=== PATIENT | male | born 1970 | race Caucasian/White ===

== ENCOUNTER 2021-04-21 06:34 | Emergency (ER) | payer SELFPAY ==
[2021-04-21] VITALS (7 sets, daily range): BP systolic 116–153; BP diastolic 72–89; PULSE 72–102; RESP 14–18; TEMP 36.2; O2SAT 94–98; BMI 24.4
--- NOTE | 2021-04-21 06:48 | ECG_ITS ---
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 Measurements Intervals [place] Rate: 77 P: 77 [place]: 153 QRS: 49 QRSD: 103 T: 73 QT: 359 QTc: 407 Interpretive Statements SINUS RHYTHM INCOMPLETE RIGHT BUNDLE BRANCH BLOCK [90+ ms QRS DURATION, TERMINAL R IN V1/V2, 40+ ms S IN I/aVL/V4/V5/V6] SEPTAL MYOCARDIAL INFARCTION , PROBABLY OLD [40+ ms Q WAVE IN V1/V2] No previous ECG available for comparison Electronically Signed On 04-22-2021 8:17:12 SUPERVISOR BEATER ROOM by Odette Piña M.D. [id number] rosario
--- NOTE | 2021-04-21 06:48 | XRR_ITS ---
PROCEDURE INFORMATION: Exam: XR Chest Exam date and time: 04/21/2021 6:48 AM Age: 50 years old Clinical indication: Pain; Chest pressure; Additional info: Chest pain TECHNIQUE: Imaging protocol: XR of the chest. Views: 1 view. COMPARISON: No relevant prior studies available. FINDINGS: Lungs: Emphysematous change and mild interstitial prominence. Punctate left upper lobe nodule, suggesting granuloma. Pleural spaces: No pleural effusion. Heart/Mediastinum: No cardiomegaly. Bones/joints: Degenerative change. XR/XR chest 1V portable [id number] IMPRESSION: Emphysematous change and mild interstitial prominence.
[2021-04-21] MEDS: aspirin 81 mg Chew Tablet 324 MG PO (07:09)
--- NOTE | 2021-04-21 07:13 | PC.NURSE ---
Received report from JADYN Alegre. pt in bed resting. Pt denies current pain.
[2021-04-21] MEDS: aspirin 81 mg Chew Tablet 162 MG (07:16)
--- NOTE | 2021-04-21 07:20 | ED_ITS ---
HPI - General Adult General: Chief complaint: General Medical Stated complaint: confusion, rapid heart Time Seen by Provider: 04/21/21 06:38 History of Present Illness: HPI narrative: 50-year-old male presents to the emergency room with complaint of chest discomfort. Patient states the last 4 days he has had chest discomfort that radiates somewhat into the back but he states he has chronic back and neck problems. He is a little bit of a cough but he says this is baseline cough from smoking. He has not had any change in his sputum production. He has not had any associated shortness of breath with it. He does get a little bit nauseous but no diaphoresis. He has no known history of coronary artery disease. He is not diabetic. He was on clonazepam differently recently moved to this area and ran out about 4 to 5 days ago. He told me he had been taking 1 mg twice a day. And his home medicine list is listed as clonazepam 0.5 3 times daily. Patient is awake and alert is a good historian with no signs of any confusion. Onset (ago): day(s) (4) Location: chest Quality: aching Pain Consistency: intermittent Relieving factors: none Exacerbating factors: none Associated symptoms: Reports chest pain; Deny confusion, cough, diaphoresis, decreased appetite, dyspnea, fevers/chills, headache(s), malaise, nausea, rash, palpitations, seizures, short of breath, syncope, vomiting or weakness Treatments prior to arrival: none Review of Systems Const: Denies: malaise or diaphoresis ENMT: Denies: throat pain, ear or mastoid pain, nasal discharge or nasal congestion Card: Reports: chest pain; Denies: palpitations or syncope Resp: Denies: dyspnea GI: Denies: nausea or vomiting : Denies: flank pain, dysuria, urinary frequency or urinary urgency Skin/Breast: Denies: rash Neuro: Denies: headache(s) or confusion PFSH ED 2 PFSH: Medical History (Updated 04/21/21 @ 10:33 by Umair Liao DO) Anxiety Surgical History (Updated 04/21/21 @ 07:24 by Umair Liao DO) H/O hand surgery H/O knee surgery Right Previous back surgery Family History Other Bleeding disorder Denies family history of Diabetes CAD (coronary artery disease) Clotting disorder Chronic kidney disease (CKD) Social History Smoking and tobacco status: current every day smoker Alcohol intake: never Adopted: No Household members: spouse Housing: House Marital status: Highest education level completed: GED or Equivalent service: No Current occupational status: employed Pets and animals: Yes Current gender identity: Male Physical Exam Const: COMMON NORMALS: no acute distress GENERAL APPEARANCE: cooperative and comfortable ORIENTATION/CONSCIOUSNESS: Yes awake, Yes oriented to person, Yes oriented to place and Yes oriented to time HENMT: COMMON NORMALS: normocephalic, atraumatic, hearing grossly normal bilaterally and external ears normal HEAD & SCALP: normocephalic and atraumatic EXTERNAL EAR: Yes external ears normal Neck/C-Spine: COMMON NORMALS: no JVD Resp: COMMON NORMALS: normal respiratory effort, No retractions, No use of accessory muscles and clear to auscultation bilaterally AUSCULTATION: clear to auscultation bilaterally Cardio: COMMON NORMALS: no JVD, regular rate, regular rhythm and No murmurs present (Cardio) RATE: regular rate RHYTHM: regular rhythm GI: COMMON NORMALS: Soft to palpation and No hepatosplenomegaly present AUSCULTATION: Yes normoactive bowel sounds PALPATION: Yes Soft to palpation, No Tenderness to palpation present (GI), No Guarding due to palpation present (GI) and Yes No hepatosplenomegaly present Extremity: COMMON NORMALS: normal to inspection, capillary refill normal, no clubbing, cyanosis or edema, no calf tenderness and no pedal edema Neuro: SENSORIUM/ORIENTATION: Yes oriented to person, Yes oriented to place and Yes oriented to time Skin: COMMON NORMALS: no rashes or lesions noted GENERAL SKIN EXAM: no rashes or lesions noted Course Vital Signs: Vital signs: Vital Signs Temperature 97.1 F L 04/21/21 06:40 Pulse Rate 72 04/21/21 10:57 Respiratory Rate 16 04/21/21 10:57 Blood Pressure 122/72 04/21/21 10:57 Pulse Oximetry 94 04/21/21 10:57 MDM - General Adult MDM Narrative: Medical decision making narrative: Labs imaging and EKG reviewed as found in the chart. Patient is mildly hyponatremic but he is asymptomatic of this at this time. His chest discomfort is gone. Organ to go ahead and discharge home start on aspirin daily set him up for an outpatient stress test. Recommend that he establish with a primary care physician to restart his antianxiety medications. He reports she was previously on clonazepam he inquired about refilling that in the emergency room advised him we do not usually refill a long-acting benzodiazepine like that in the emergency room. At the time of discharge she is awake and alert oriented is no signs of confusion. Lab Data: Labs: Lab Results 04/21/21 04/21/21 04/21/21 06:45 06:45 06:45 WBC 8.5 10^3/uL 10^3/ uL (4.0-10.0) RBC 5.43 10^6/uL H 10 ^6/uL (4.1-5.3) Hgb 16.8 g/dL H g/dL (11.7-16.6) Hct 49.6 % % (42.0-52.0) MCV 91.3 fl fl (80-94) MCH 30.9 pg pg (28.0-34.0) MCHC 33.9 g/dL g/dL (30.0-36.0) RDW 12.3 % % (12.1-15.1) Plt Count 302 10^3/cmm 10^3 /cmm (130-400) MPV 9.9 fL fL (7.4-10.4) Neut % (Auto) 64.7 % % Lymph % (Auto) 19.9 % % [place] % (Auto) 12.2 % % Eos % (Auto) 2.4 % % Baso % (Auto) 0.7 % % Neut # (Auto) 5.50 10^3/uL 10^3 /uL (1.8-7.7) Lymph # (Auto) 1.7 10^3/uL 10^3/ uL (0.8-4.8) [place] # (Auto) 1.0 10^3/uL H 10^ 3/uL (0.2-0.9) Eos # (Auto) 0.2 10^3/uL 10^3/ uL (0.0-0.8) Baso # (Auto) 0.1 10^3/uL 10^3/ uL (0.0-0.1) Nucleated RBC % (a uto) 0 % % Nucleated RBCs # 0.0 /100WBC /100W BC Sodium Cancelled Potassium Cancelled Chloride Cancelled Carbon Dioxide Cancelled Anion Gap Cancelled BUN Cancelled Creatinine Cancelled GFR Calculation Cancelled Glucose Cancelled Calculated Osmolal ity Cancelled Calcium Cancelled Total Bilirubin Cancelled AST Cancelled ALT Cancelled Alkaline Phosphata se Cancelled Troponin T Baselin e Cancelled Troponin T 120 Min [place] Delta Troponin T Troponin T Hi Sens 6Hr Troponin T Hi Sens 6Hr Delta Total Protein Cancelled Albumin Cancelled Globulin Cancelled 04/21/21 04/21/21 04/21/21 07:37 07:37 09:43 WBC RBC Hgb Hct MCV MCH MCHC RDW Plt Count MPV Neut % (Auto) Lymph % (Auto) [place] % (Auto) Eos % (Auto) Baso % (Auto) Neut # (Auto) Lymph # (Auto) [place] # (Auto) Eos # (Auto) Baso # (Auto) Nucleated RBC % (a uto) Nucleated RBCs # Sodium 126 mmol/L L mmol /L (136-145) Potassium 4.0 mmol/L mmol/L (3.5-5.1) Chloride 95 mmol/L L mmol/ L (98-107) Carbon Dioxide 20 mmol/L L mmol/ L (22-29) Anion Gap 15.0 (5-19) BUN 11 mg/dL mg/dL (6-20) Creatinine 0.8 mg/dL mg/dL (0.7-1.2) GFR Calculation 101.9 mL/min mL/m in (90-130) Glucose 95 mg/dL mg/dL (65-115) Calculated Osmolal ity 261 mOsm/kg L mOs m/kg (285-295) Calcium 9.3 mg/dL mg/dL (8.5-10.5) Total Bilirubin 0.8 mg/dL mg/dL (0.15-1.2) AST 15 U/L U/L (0-40) ALT 18 U/L U/L (0-41) Alkaline Phosphata se 77 IU/L IU/L (40-130) Troponin T Baselin e 6 ng/L ng/L (0-15) Troponin T 120 Min [place] 6.00 ng/L ng/L (0-15) Delta Troponin T 0 ABS# ABS# (0-10) Troponin T Hi Sens 6Hr Troponin T Hi Sens 6Hr Delta Total Protein 6.8 g/dL g/dL (6.6-8.7) Albumin 4.3 g/dL g/dL (3.5-5.2) Globulin 2.5 g/dL g/dL (1.3-4.6) 04/21/21 13:37 WBC RBC Hgb Hct MCV MCH MCHC RDW Plt Count MPV Neut % (Auto) Lymph % (Auto) [place] % (Auto) Eos % (Auto) Baso % (Auto) Neut # (Auto) Lymph # (Auto) [place] # (Auto) Eos # (Auto) Baso # (Auto) Nucleated RBC % (a uto) Nucleated RBCs # Sodium Potassium Chloride Carbon Dioxide Anion Gap BUN Creatinine GFR Calculation Glucose Calculated Osmolal ity Calcium Total Bilirubin AST ALT Alkaline Phosphata se Troponin T Baselin e Troponin T 120 Min [place] Delta Troponin T Troponin T Hi Sens 6Hr Cancelled Troponin T Hi Sens 6Hr Delta Cancelled Total Protein Albumin Globulin Discharge Plan Discharge Patient Disposition: Home Clinical Impression: Atypical chest pain Condition: Stable Prescriptions: New aspirin 81 mg tablet,delayed release (DR/EC) 81 mg PO DAILY Qty: 30 RF: 0 Discontinued clonazepam 0.5 mg tablet 0.5 mg PO TID RF: 0 doxycycline hyclate 100 mg capsule 100 mg PO BID 30 Days Qty: 60 RF: 0 Discharge Orders: Discharge ED (Routine); Ordered 04/21/21 Ordered By: Umair Liao Discharge Diet: Usual diet Discharge Activity: Limit activity as instructed Patient Instructions: Opioid Safety Activity Restrictions/Additional Instructions: No exertional activities. Case management make arrangements. Have a follow-up stress test. They will also make arrangements for her to establish with a primary care doctor. If you have any worsening or changes symptoms return to the emergency room. Start aspirin 81 mg daily. Coding Level of Care Code ED Office Technician for Madison Aguayo Exam Comprehensive NIH stroke score NIHSS Level Of Consciousness - 1a: 0 Level Of Consciousness Questions - 1b: Both Correct Level Of Consciousness Commands - 1c: Both Correct Best Gaze - 2: Normal Visual [place] - 3: No Visual Loss Facial Palsy - 4: Normal Motor Arm Right - 5: No Drift Motor Arm Left - 5: No Drift Motor Leg Right - 6: No Drift Motor Leg Left - 6: No Drift Limb Ataxia - 7: Absent Sensory - 8: Normal Best Language - 9: No Aphasia Dysarthia - 10: Normal Extinction And Inattention - 11: 0 Score Total Score: 0
[2021-04-21 07:22] LABS: Basophils # 0.1 10^3/uL (0.0-0.1); Basophils % 0.7 %; Eosinophils # 0.2 10^3/uL (0.0-0.8); Eosinophils % 2.4 %; Hematocrit 49.6 % (42.0-52.0); Hemoglobin 16.8 g/dL (11.7-16.6); Lymphocytes # 1.7 10^3/uL (0.8-4.8); Lymphocytes % 19.9 %; Mean Corpuscular HGB Conc 33.9 g/dL (30.0-36.0); Mean Corpuscular Hemoglobin 30.9 pg (28.0-34.0); Mean Corpuscular Volume 91.3 fl (80-94); Mean Platelet Volume 9.9 fL (7.4-10.4); Monocytes % 12.2 %; Neutrophils % 64.7 %; Nucleated Red Blood Cells % 0 %; Platelet Count 302 10^3/cmm (130-400); Red Blood Count 5.43 10^6/uL (4.1-5.3); Red Cell Distribution Width 12.3 % (12.1-15.1); White Blood Count 8.5 10^3/uL (4.0-10.0)
[2021-04-21 08:06] LABS: Alanine Aminotransferase 18 U/L (0-41); Albumin Level 4.3 g/dL (3.5-5.2); Alkaline Phosphatase 77 IU/L (40-130); Aspartate Amino Transferase 15 U/L (0-40); Blood Urea Nitrogen 11 mg/dL (6-20); Calcium 9.3 mg/dL (8.5-10.5); Carbon Dioxide 20 mmol/L (22-29); Chloride 95 mmol/L (98-107); Globulin 2.5 g/dL (1.3-4.6); Glomerular Filtration Rate 101.9 mL/min (90-130); Glucose 95 mg/dL (65-115); Osmolality Calculated 261 mOsm/kg (285-295); Sodium 126 mmol/L (136-145); Total Bilirubin 0.8 mg/dL (0.15-1.2); Total Protein 6.8 g/dL (6.6-8.7)
[2021-04-21 08:07] LABS: Troponin(5th) Baseline 6 ng/L (0-15)
--- NOTE | 2021-04-21 08:48 | ECG_ITS ---
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 Measurements Intervals [place] Rate: 72 P: 144 [place]: 155 QRS: 52 QRSD: 99 T: 93 QT: 377 QTc: 415 Interpretive Statements ECTOPIC ATRIAL RHYTHM LOW QRS VOLTAGE IN PRECORDIAL LEADS [QRS DEFLECTION < 1.0 mV IN CHEST LEADS] POSSIBLE RIGHT VENTRICULAR CONDUCTION DELAY [RSR (QR) IN V1/V2] Compared to ECG 04/21/2021 06:43:50 Ectopic atrial rhythm now present Low QRS voltage now present Sinus rhythm no longer present Incomplete right bundle-branch block no longer present Myocardial infarct finding no longer present Electronically Signed On 04-22-2021 8:33:12 HEAD REFRIGERATION ENGINEER by Odette Piña M.D. [id number]
--- NOTE | 2021-04-21 09:57 | PC.NURSE ---
Pt placed on continuos BP, SpO2, and cardiac monitoring.
[2021-04-21 10:10] LABS: Troponin 5 2HR Delta 0 ABS# (0-10)
--- NOTE | 2021-04-22 15:38 | DCPLANNER ---
manager hydraulic had message to schedule an outpatient stress test and to speak with patient about getting established with a primary care physician. manager hydraulic spoke with patient, he would like to be established with Dr. Raphael at [facility]. manager hydraulic faxed signed order for stress test to centralized scheduling, who will call patient with appointment information. When stress test is scheduled, egg caser will call [facility] and schedule a follow up appointment and will call patient with appointment information. manager hydraulic also mailed patient both of the director of financial aid applications to fill out and turn in.
== END 2021-04-21 10:51 | disposition home or self-care (01) ==
PROVIDERS: Emergency Medicine; Emergency Provider Family Medicine
DX: R07.89 Other chest pain (principal); E87.1 Hypo-osmolality and hyponatremia; F17.200 Nicotine dependence, unspecified, uncomplicated
CPT/HCPCS: 36415; 71045; 80053; 84484; 85025; 93005; 99284

== ENCOUNTER 2021-04-27 16:10 | Emergency (ER) | payer SELFPAY ==
[2021-04-27 16:32] VITALS: BP 130/87; PULSE 82; RESP 16; TEMP 36.7; O2SAT 97
--- NOTE | 2021-04-27 16:47 | ECG_ITS ---
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1970 Requested By: Chapo Paez Order Number: [id number] Reading MD: REAL CHRISTIANSON Measurements Intervals [place] Rate: 77 P: 73 [place]: 154 QRS: -9 QRSD: 94 T: 56 QT: 365 QTc: 415 Interpretive Statements SINUS RHYTHM INCOMPLETE RIGHT BUNDLE BRANCH BLOCK [90+ ms QRS DURATION, TERMINAL R IN V1/V2, 40+ ms S IN I/aVL/V4/V5/V6] Compared to ECG 04/21/2021 08:54:19 Incomplete right bundle-branch block now present Ectopic atrial rhythm no longer present Electronically Signed On 04-27-2021 18:14:12 BOAT OUTFITTING SUPERVISOR by REAL CHRISTIANSON [id number]
== END 2021-04-27 20:31 | disposition left against medical advice (07) ==
PROVIDERS: Emergency Provider Family Medicine; PCP Nurse Practitioner
DX: Z53.21 Procedure and treatment not carried out due to patient leaving prior to being seen by health care provider (principal)
CPT/HCPCS: 93005

== ENCOUNTER 2021-04-30 10:54 | Emergency (ER) | payer SELFPAY ==
[2021-04-30] VITALS (8 sets, daily range): BP systolic 107–151; BP diastolic 59–90; PULSE 58–82; RESP 13–18; TEMP 36.8; O2SAT 95–97
--- NOTE | 2021-04-30 11:12 | W.ED.GENADLT ---
HPI - General Adult General: Chief complaint: General Medical Stated complaint: Tightness in throat, pain in neck and jaw Time Seen by Provider: 04/30/21 10:55 History of Present Illness: HPI narrative: 50-year-old male presents to the emergency room with complaint of chest pain. He was here on April 27 and EKG was done but he left without being seen. He had a similar complaint of chest discomfort and confusion. He was also seen on April 21 with a complaint of chest pain and his work-up was negative at that time he was discharged home for an outpatient stress test. Onset (ago): minute(s) Location: chest Radiation: non-radiation Severity: mild Quality: aching and dull Pain Consistency: intermittent Relieving factors: none Exacerbating factors: none Associated symptoms: Reports chest pain; Deny confusion, cough, diaphoresis, decreased appetite, dyspnea, fevers/chills, headache(s), malaise, nausea, rash, palpitations, seizures, short of breath, syncope, vomiting or weakness Treatments prior to arrival: none Review of Systems Const: Denies: malaise or diaphoresis ENMT: Denies: throat pain, ear or mastoid pain, nasal discharge or nasal congestion Card: Reports: chest pain; Denies: palpitations or syncope Resp: Denies: dyspnea GI: Denies: nausea or vomiting : Denies: flank pain, dysuria, urinary frequency or urinary urgency Skin/Breast: Denies: rash Neuro: Denies: headache(s) or confusion PFSH ED PFSH: Medical History Anxiety, generalized Cigarette smoker Surgical History H/O hand surgery H/O knee surgery Right and left knee scope Previous back surgery Lumbar spine with cage. Had secondary infection with bacterial spine infection. Family History Other Bleeding disorder Denies family history of Diabetes CAD (coronary artery disease) Clotting disorder Chronic kidney disease (CKD) Social History Smoking and tobacco status: current every day smoker Second hand smoke exposure: No Smoking risk assessment/counseling performed?: No Alcohol intake: unknown Desire information about alcohol rehabilitation?: No Counseling given: No Substance/Drug Use: unknown Desire information about substance/drug rehabilitation?: No Counseling given: No Adopted: No Caregiver/support person: No Lives independently: Yes Household members: spouse Housing: House Marital status: Highest education level completed: GED or Equivalent service: No Current occupational 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: 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 Pets and animals: Yes Current gender identity: Male Physical Exam Const: COMMON NORMALS: no acute distress GENERAL APPEARANCE: cooperative and comfortable ORIENTATION/CONSCIOUSNESS: Yes awake, Yes oriented to person, Yes oriented to place and Yes oriented to time HENMT: COMMON NORMALS: normocephalic, atraumatic and hearing grossly normal bilaterally HEAD & SCALP: normocephalic and atraumatic Neck/C-Spine: COMMON NORMALS: no JVD Resp: COMMON NORMALS: normal respiratory effort, No retractions, No use of accessory muscles and clear to auscultation bilaterally AUSCULTATION: clear to auscultation bilaterally and wheezes Cardio: COMMON NORMALS: no JVD, regular rate, regular rhythm and No murmurs present (Cardio) RATE: regular rate RHYTHM: regular rhythm GI: COMMON NORMALS: Soft to palpation and No hepatosplenomegaly present AUSCULTATION: Yes normoactive bowel sounds PALPATION: Yes Soft to palpation, No Tenderness to palpation present (GI), No Guarding due to palpation present (GI) and Yes No hepatosplenomegaly present Extremity: COMMON NORMALS: normal to inspection, capillary refill normal, no clubbing, cyanosis or edema, no calf tenderness and no pedal edema Neuro: SENSORIUM/ORIENTATION: Yes oriented to person, Yes oriented to place and Yes oriented to time Skin: COMMON NORMALS: no rashes or lesions noted GENERAL SKIN EXAM: no rashes or lesions noted Course Vital Signs: Vital signs: Vital Signs Temperature 98.2 F 04/30/21 11:04 Pulse Rate 59 L 04/30/21 16:48 Respiratory Rate 16 04/30/21 16:48 Blood Pressure 107/59 04/30/21 16:48 Pulse Oximetry 96 04/30/21 16:48 MDM - General Adult MDM Narrative Medical decision making narrative: Labs imaging and EKG reviewed. Patient has not had any increase in his troponin. Were going to make arrangements for him to get a stress test. Continue aspirin daily we will start him on Advair as well as albuterol to use as needed set him up for pulmonary function test and follow-up with pulmonology Medical Records Attestation: I reviewed the patient's medical records. Lab Data Attestation: I reviewed the patient's lab results. Result diagrams: 04/30/21 11:21 04/30/21 11:21 Labs: Lab Results 04/30/21 04/30/21 04/30/21 11:21 11:21 11:21 WBC 7.2 10^3/uL 10^3/uL (4.0-10.0) RBC 5.44 10^6/uL H 10^6/uL (4.1-5.3) Hgb 16.6 g/dL g/dL (11.7-16.6) Hct 49.2 % % (42.0-52.0) MCV 90.4 fl fl (80-94) MCH 30.5 pg pg (28.0-34.0) MCHC 33.7 g/dL g/dL (30.0-36.0) RDW 12.1 % % (12.1-15.1) Plt Count 258 10^3/cmm 10^3/cmm (130-400) MPV 9.8 fL fL (7.4-10.4) Neut % (Auto) 62.5 % % Lymph % (Auto) 23.3 % % [place] % (Auto) 11.6 % % Eos % (Auto) 1.7 % % Baso % (Auto) 0.6 % % Neut # (Auto) 4.49 10^3/uL 10^3/uL (1.8-7.7) Lymph # (Auto) 1.7 10^3/uL 10^3/uL (0.8-4.8) [place] # (Auto) 0.8 10^3/uL 10^3/uL (0.2-0.9) Eos # (Auto) 0.1 10^3/uL 10^3/uL (0.0-0.8) Baso # (Auto) 0.0 10^3/uL 10^3/uL (0.0-0.1) Nucleated RBC % (auto) 0 % % Nucleated RBCs # 0.0 /100WBC /100WBC D-Dimer Sodium 136 mmol/L mmol/L (136-145) Potassium 4.4 mmol/L mmol/L (3.5-5.1) Chloride 102 mmol/L mmol/L (98-107) Carbon Dioxide 18 mmol/L L mmol/L (22-29) Anion Gap 20.4 H (5-19) BUN 11 mg/dL mg/dL (6-20) Creatinine 0.8 mg/dL mg/dL (0.7-1.2) GFR Calculation 101.9 mL/min mL/min (90-130) Glucose 86 mg/dL mg/dL (65-115) Calculated Osmolality 281 mOsm/kg L mOsm/kg (285-295) Calcium 8.6 mg/dL mg/dL (8.5-10.5) Total Bilirubin 0.9 mg/dL mg/dL (0.15-1.2) AST 16 U/L U/L (0-40) ALT 18 U/L U/L (0-41) Alkaline Phosphatase 79 IU/L IU/L (40-130) Troponin T Baseline 6 ng/L ng/L (0-15) Troponin T 120 Min[place] Delta Troponin T Troponin T Hi Sens 6Hr Troponin T Hi Sens 6Hr Delta Total Protein 6.4 g/dL L g/dL (6.6-8.7) Albumin 4.4 g/dL g/dL (3.5-5.2) Globulin 2.0 g/dL g/dL (1.3-4.6) 04/30/21 04/30/21 04/30/21 11:21 13:52 16:46 WBC RBC Hgb Hct MCV MCH MCHC RDW Plt Count MPV Neut % (Auto) Lymph % (Auto) [place] % (Auto) Eos % (Auto) Baso % (Auto) Neut # (Auto) Lymph # (Auto) [place] # (Auto) Eos # (Auto) Baso # (Auto) Nucleated RBC % (auto) Nucleated RBCs # D-Dimer 1.48 ug/mIFEU H ug/mIFEU (0-0.59) Sodium Potassium Chloride Carbon Dioxide Anion Gap BUN Creatinine GFR Calculation Glucose Calculated Osmolality Calcium Total Bilirubin AST ALT Alkaline Phosphatase Troponin T Baseline Troponin T 120 [place] 6.00 ng/L ng/L (0-15) Delta Troponin T 0 ABS# ABS# (0-10) Troponin T Hi Sens 6Hr 6.00 ng/L ng/L (0-15) Troponin T Hi Sens 6Hr Delta 0 ng/L ng/L (0-12) Total Protein Albumin Globulin Discharge Plan Discharge Patient Disposition: Home Clinical Impression: Atypical chest pain, Dyspnea Condition: Stable Prescriptions: New Advair Diskus 250-50 mcg/dose blister with device 1 inh inhalation BID Qty: 60 0RF albuterol sulfate 90 mcg/actuation HFA aerosol inhaler 2 inh INHALATION Q4H PRN (Reason: shortness of breath or wheezing) Qty: 18 0RF No Action escitalopram oxalate [Lexapro] 10 mg tablet 10 mg PO DAILY Qty: 30 0RF doxepin 50 mg capsule 50 mg PO .at bedtime Qty: 30 0RF aspirin 81 mg tablet,delayed release (DR/EC) 81 mg PO DAILY Qty: 30 0RF Discharge Orders: Discharge ED (Routine); Ordered 04/30/21 Ordered By: Umair Liao Referrals: Mara Pierce, [facility] [Primary Care Provider] - Discharge Diet: Usual diet Discharge Activity: Increase activity as tolerated Patient Instructions: Opioid Safety Activity Restrictions/Additional Instructions: Case management make arrangements for you to have a stress test. Avoid any exertional activities until then. Continue to take 81 mg tablet of aspirin daily. We will also set you up for pulmonary function test start Advair and use albuterol as needed. Coding Level of Care Code ED Bench Tool Maker for Madison Aguayo
--- NOTE | 2021-04-30 11:35 | XR_ITS ---
WS: [id number] Exam: XR chest 1V portable [id number] Date/Time of Exam: 04/30/2021 11:38 AM Reason For Exam: dyspnea/cough Comparison 04/21/2021. Findings: The lungs are clear and fully expanded. Costophrenic angles are sharp. No infiltrates. Bronchovascula r relief appears normal. Cardiac silhouette is unremarkable. Bony elements are intact. XR/XR chest 1V portable [id number] IMPRESSION: Unremarkable chest radiograph.
--- NOTE | 2021-04-30 11:36 | PC.NURSE ---
Patient placed on continuous bedside cardiac, BP and O2 monitor.
[2021-04-30 11:44] LABS: Basophils % 0.6 %; Eosinophils # 0.1 10^3/uL (0.0-0.8); Eosinophils % 1.7 %; Hematocrit 49.2 % (42.0-52.0); Hemoglobin 16.6 g/dL (11.7-16.6); Lymphocytes # 1.7 10^3/uL (0.8-4.8); Lymphocytes % 23.3 %; Mean Corpuscular HGB Conc 33.7 g/dL (30.0-36.0); Mean Corpuscular Hemoglobin 30.5 pg (28.0-34.0); Mean Corpuscular Volume 90.4 fl (80-94); Mean Platelet Volume 9.8 fL (7.4-10.4); Monocytes # 0.8 10^3/uL (0.2-0.9); Monocytes % 11.6 %; Neutrophils # 4.49 10^3/uL (1.8-7.7); Neutrophils % 62.5 %; Nucleated Red Blood Cells % 0 %; Platelet Count 258 10^3/cmm (130-400); Red Blood Count 5.44 10^6/uL (4.1-5.3); Red Cell Distribution Width 12.1 % (12.1-15.1); White Blood Count 7.2 10^3/uL (4.0-10.0)
[2021-04-30 12:08] LABS: Troponin(5th) Baseline 6 ng/L (0-15)
[2021-04-30 12:10] LABS: Alanine Aminotransferase 18 U/L (0-41); Albumin Level 4.4 g/dL (3.5-5.2); Alkaline Phosphatase 79 IU/L (40-130); Anion Gap 20.4 (5-19); Aspartate Amino Transferase 16 U/L (0-40); Blood Urea Nitrogen 11 mg/dL (6-20); Calcium 8.6 mg/dL (8.5-10.5); Carbon Dioxide 18 mmol/L (22-29); Chloride 102 mmol/L (98-107); Glomerular Filtration Rate 101.9 mL/min (90-130); Glucose 86 mg/dL (65-115); Osmolality Calculated 281 mOsm/kg (285-295); Potassium 4.4 mmol/L (3.5-5.1); Sodium 136 mmol/L (136-145); Total Bilirubin 0.9 mg/dL (0.15-1.2); Total Protein 6.4 g/dL (6.6-8.7)
[2021-04-30] MEDS: ondansetron 2 mg/ML SDV 2 mL 4 MG IVP (12:21)
[2021-04-30] MEDS: ketorolac 30 mg/mL INJ IVP (12:50)
--- NOTE | 2021-04-30 13:09 | ECG_ITS ---
[facility] Test Date: 2021-04-30 Pat Name: Tyrell Paniagua Department: Room: Gender: Male Pega Developer: : 1970 Requested By: Umair Amin Order Number: [id number] Reading MD: REAL CHRISTIANSON Measurements Intervals [place] Rate: 64 P: 59 NC: 150 QRS: 11 QRSD: 103 T: 44 QT: 401 QTc: 414 Interpretive Statements SINUS RHYTHM INCOMPLETE RIGHT BUNDLE BRANCH BLOCK [90+ ms QRS DURATION, TERMINAL R IN V1/V2, 40+ ms S IN I/aVL/V4/V5/V6] Compared to ECG 04/30/2021 11:32:12 No significant changes Electronically Signed On 04-30-2021 20:54:58 ADVANCED NURSING PROFESSOR by REAL CHRISTIANSON [id number]
[2021-04-30 13:47] LABS: D Dimer 1.48 ug/mIFEU (0-0.59)
[2021-04-30 14:30] LABS: Troponin 5 2HR Delta 0 ABS# (0-10)
--- NOTE | 2021-04-30 14:54 | CTR_ITS ---
PROCEDURE INFORMATION: Exam: CTA Chest With Contrast Exam date and time: 04/30/2021 2:54 PM Age: 50 years old Clinical indication: Abnormal findings; Abnormal diagnostic tests; Elevated d-dimer; Shortness of breath; Additional info: Elevated d dimer/ dyspnea TECHNIQUE: Imaging protocol: Computed tomographic angiography of the chest with contrast. 3D rendering (Not supervised by radiologist): MIP and/or 3D reconstructed images were created by the technologist. Total images: 557 Radiation optimization: All CT scans at this facility use at least one of these dose optimization techniques: automated exposure control; mA and/or kV adjustment per patient size (includes targeted exams where dose is matched to clinical indication); or iterative reconstruction. Contrast material: OMNI 350; Contrast volume: 89 ml; Contrast route: INTRAVENOUS (IV); COMPARISON: CR XR chest 1V portable [id number] 04/30/2021 11:44 AM RADIATION DOSE METRICS: Total DLP (mGy-cm): 591.06 FINDINGS: Pulmonary arteries: No visible evidence of pulmonary embolism/pulmonary arterial thrombus. Aorta: The thoracic aorta is nonaneurysmal. No visible intimal flap or dissection. Lungs: Advanced centrilobular emphysema. Rare calcified granuloma of antecedent disease. Pleural spaces: No pneumothorax. No pleural effusion. Heart: No cardiomegaly. No visible pericardial effusion. Minimal coronary artery disease. Lymph nodes: Prominent middle mediastinal and hilar lymph nodes many with calcifications of antecedent granulomatous disease. Both calcified mediastinal and hilar complexes of antecedent granulomatous disease. No visible axillary lymphadenopathy. Bones/joints: No visible acute osseous abnormality. Soft tissues: Unremarkable. CT/CT angio chest PE protcl [id number] IMPRESSION: 1. No visible evidence of pulmonary embolism/pulmonary arterial thrombus. 2. Advanced centrilobular emphysema. 3. Calcified granulomas of antecedent disease. 4. Prominent middle mediastinal and hilar lymph nodes many with calcifications of antecedent granulomatous disease.
[2021-04-30] MEDS: iohexol 350 mg/mL 100 mL Btl IV (16:12)
--- NOTE | 2021-04-30 17:09 | ECG_ITS ---
[facility] Test Date: 2021-04-30 Pat Name: Tyrell Paniagua Department: Room: Gender: Male Transplant Case Manager: : 1970 Requested By: Umair Amin Order Number: [id number] Reading MD: REAL CHRISTIANSON Measurements Intervals [place] Rate: 65 P: 75 AL: 159 QRS: 20 QRSD: 110 T: 67 QT: 398 QTc: 416 Interpretive Statements SINUS RHYTHM INCOMPLETE RIGHT BUNDLE BRANCH BLOCK [90+ ms QRS DURATION, TERMINAL R IN V1/V2, 40+ ms S IN I/aVL/V4/V5/V6] Compared to ECG 04/27/2021 16:32:06 No significant changes Electronically Signed On 04-30-2021 20:56:56 TELEPHONE STATION INSTALLER by REAL CHRISTIANSON [id number]
[2021-04-30 17:17] LABS: Troponin 5 6HR Delta 0 ng/L (0-12)
--- NOTE | 2021-05-01 11:18 | DCPLANNER ---
biomass production manager had message to schedule an out patient stress test and PFT for patient. biomass production manager faxed signed order to centralized scheduling, who will call patient with appointment information.
== END 2021-04-30 16:51 | disposition home or self-care (01) ==
PROVIDERS: Emergency Provider Family Medicine; PCP Nurse Practitioner
DX: R07.89 Other chest pain (principal); R06.00 Dyspnea, unspecified; Z79.82 Long term (current) use of aspirin; F17.210 Nicotine dependence, cigarettes, uncomplicated
CPT/HCPCS: 71045; 71275; 80053; 84484; 85025; 85378; 93005; 96374; 96375; 99284; J1885; J2405; Q9967

== ENCOUNTER 2021-05-15 | Outpatient (CLI) | payer OTHER, SELFPAY | END 2021-05-15 00:01 | disposition home or self-care (01) | LOC: RT 10-09 12:54 | PROVIDERS: PCP Nurse Practitioner; Visit Provider Family Medicine | DX: R39.9 Unspecified symptoms and signs involving the genitourinary system (principal); F41.1 Generalized anxiety disorder | CPT/HCPCS: 81000; 84443 ==

== ENCOUNTER 2021-08-20 16:44 | Emergency (ER) | payer OTHER, SELFPAY ==
[2021-08-20 16:53] VITALS: BP 138/78; PULSE 90; RESP 18; TEMP 36.8; O2SAT 94; BMI 24.4
--- NOTE | 2021-08-20 16:58 | W.ED.HA ---
Documented by User: Umair Liao DO 08/21/21 07:11 HPI - Headache General: Chief Complaint: Headache Stated Complaint: confusion/headache/slurred speech Time Seen by Provider: 08/20/21 16:52 Source: patient Mode of arrival: ambulatory Limitations: no limitations History of Present Illness: 50-year-old male presents emergency room he has had a headache for the last 3 to 4 days occipital in nature at times he states he is feel confused also reports having slurred speech difficulty finding his words. No other focal neurologic deficits are noted. No chest pain or tightness. He is not having any visual difficulties. MD elicited complaint: headache Onset (ago): day(s) (3-4) Onset description: gradually Location: occipital Severity: moderate Quality & Timing: throbbing Exacerbating factors: light Relieving factors: nothing Associated symptoms: Reports eye pain, lightheadedness, nausea and photophobia; Deny chest pain, confusion, cough, diaphoresis, eye redness, fever(s), loss of vision, malaise, neck stiffness, numbness, paresthesias, pre-syncope, rash, seizures, short of breath, sound sensitivity, syncope, vomiting or weakness Treatments prior to arrival: none Review of Systems Const: Denies: fever(s), malaise or diaphoresis ENMT: Denies: throat pain, ear or mastoid pain, nasal discharge or nasal congestion Card: Reports: lightheadedness; Denies: chest pain, syncope or pre-syncope Resp: Denies: dyspnea, productive cough or non-productive cough GI: Reports: nausea; Denies: vomiting : Denies: flank pain, dysuria, urinary frequency or urinary urgency Skin/Breast: Denies: rash Neuro: Denies: confusion [facility] PFSH: Medical History Anxiety, generalized Centrilobular emphysema Cigarette smoker History of Lyme disease Insomnia Surgical History H/O hand surgery H/O knee surgery Right and left knee scope Previous back surgery Lumbar spine with cage. Had secondary infection with bacterial spine infection. Family History Other Bleeding disorder Denies family history of Diabetes CAD (coronary artery disease) Clotting disorder Chronic kidney disease (CKD) Social History Smoking and tobacco status: current every day smoker Second hand smoke exposure: No Smoking risk assessment/counseling performed?: No Alcohol intake: unknown Desire information about alcohol rehabilitation?: No Counseling given: No Desire information about substance/drug rehabilitation?: No Counseling given: No Adopted: No Caregiver/support person: No Lives independently: Yes Household members: spouse Housing: House Marital status: Highest education level completed: GED or Equivalent service: No Current occupational status: 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 Pets and animals: Yes Current gender identity: Male Physical Exam Const: COMMON NORMALS: no acute distress GENERAL APPEARANCE: cooperative and comfortable ORIENTATION/CONSCIOUSNESS: Yes awake, Yes oriented to person, Yes oriented to place and Yes oriented to time HENMT: COMMON NORMALS: normocephalic, atraumatic, hearing grossly normal bilaterally, external ears normal, EAC's normal, TM's normal bilaterally, Normal nasal mucous membranes and turbinates present, moist oral mucous membranes and oropharynx normal HEAD & SCALP: normocephalic and atraumatic NOSE: Normal nasal mucous membranes and turbinates present EXTERNAL EAR: Yes external ears normal EXTERNAL AUDITORY CANAL: EAC's normal TYMPANIC MEMBRANE: TM's normal bilaterally Eye: COMMON NORMALS: Equal, round and reactive pupils present, EOMs intact bilaterally, conjunctivae normal and no scleral icterus CONJUNCTIVA: Yes conjunctivae normal PUPIL: Yes Equal, round and reactive pupils present DIRECT OPHTHALMOSCOPY: Yes photophobia Neck/C-Spine: COMMON NORMALS: full ROM, no lymphadenopathy, supple and no JVD Resp: COMMON NORMALS: normal respiratory effort, No retractions, No use of accessory muscles and clear to auscultation bilaterally AUSCULTATION: clear to auscultation bilaterally Cardio: COMMON NORMALS: no JVD, regular rate, regular rhythm and No murmurs present (Cardio) RATE: regular rate RHYTHM: regular rhythm GI: COMMON NORMALS: Soft to palpation and No hepatosplenomegaly present AUSCULTATION: Yes normoactive bowel sounds PALPATION: Yes Soft to palpation, No Tenderness to palpation present (GI), No Guarding due to palpation present (GI) and Yes No hepatosplenomegaly present Extremity: COMMON NORMALS: normal to inspection, capillary refill normal, no clubbing, cyanosis or edema, no calf tenderness and no pedal edema Neuro: SENSORIUM/ORIENTATION: Yes oriented to person, Yes oriented to place and Yes oriented to time Skin: COMMON NORMALS: no rashes or lesions noted GENERAL SKIN EXAM: no rashes or lesions noted Course Vital Signs: Vital signs: Vital Signs Temperature 98.2 F 08/20/21 18:49 Pulse Rate 90 08/20/21 18:49 Respiratory Rate 18 08/20/21 18:49 Blood Pressure 138/78 08/20/21 18:49 Pulse Oximetry 94 08/20/21 18:49 MDM - Headache Medical Decision Making Care signed out to Dr. Smith at change of shift. See final notes for diagnosis and disposition. Patient presents here with a headache he does have a history of migraines and sounds like migraine with a variant he feels improved here after headache treatment he has no signs of a stroke or subarachnoid hemorrhage head CT and blood work is normal he is stable for discharge is to follow-up PCP and return if worsening. Lab Data : 08/20/21 17:54 08/20/21 17:[address] 08/20/21 16:59 IMPRESSION: No acute intracranial abnormality. Laboratory Results WBC 9.5 10^3/uL (4.0-10.0) 08/20/21 17:54 RBC 4.82 10^6/uL (4.1-5.3) 08/20/21 17:54 Hgb 14.9 g/dL (11.7-16.6) 08/20/21 17:54 Hct 43.4 % (42.0-52.0) 08/20/21 17:54 MCV 90.0 fl (80-94) 08/20/21 17:54 MCH 30.9 pg (28.0-34.0) 08/20/21 17:54 MCHC 34.3 g/dL (30.0-36.0) 08/20/21 17:54 RDW 12.6 % (12.1-15.1) 08/20/21 17:54 Plt Count 274 10^3/cmm (130-400) 08/20/21 17:54 MPV 9.7 fL (7.4-10.4) 08/20/21 17:54 Neut % (Auto) 54.0 % 08/20/21 17:54 Lymph % (Auto) 28.7 % 08/20/21 17:54 Bledsoe % (Auto) 12.6 % 08/20/21 17:54 Eos % (Auto) 3.9 % 08/20/21 17:54 Baso % (Auto) 0.6 % 08/20/21 17:54 Neut # (Auto) 5.11 10^3/uL (1.8-7.7) 08/20/21 17:54 Lymph # (Auto) 2.7 10^3/uL (0.8-4.8) 08/20/21 17:54 Bledsoe # (Auto) 1.2 10^3/uL (0.2-0.9) H 08/20/21 17:54 Eos # (Auto) 0.4 10^3/uL (0.0-0.8) 08/20/21 17:54 Baso # (Auto) 0.1 10^3/uL (0.0-0.1) 08/20/21 17:54 Nucleated RBC % (auto) 0 % 08/20/21 17:54 Nucleated RBCs # 0.0 /100WBC 08/20/21 17:54 Sodium 136 mmol/L (136-145) 08/20/21 17:54 Potassium 4.2 mmol/L (3.5-5.1) 08/20/21 17:54 Chloride 103 mmol/L (98-107) 08/20/21 17:54 Carbon Dioxide 21 mmol/L (22-29) L 08/20/21 17:54 Anion Gap 16.2 (5-19) 08/20/21 17:54 BUN 19 mg/dL (6-20) 08/20/21 17:54 Creatinine 1.0 mg/dL (0.7-1.2) 08/20/21 17:54 GFR Calculation 78.8 mL/min (90-130) L 08/20/21 17:54 Glucose 101 mg/dL (65-115) 08/20/21 17:54 Calculated Osmolality 284 mOsm/kg (285-295) L 08/20/21 17:54 Calcium 9.3 mg/dL (8.5-10.5) 08/20/21 17:54 Total Bilirubin 0.5 mg/dL (0.15-1.2) 08/20/21 17:54 AST 16 U/L (0-40) 08/20/21 17:54 ALT 20 U/L (0-41) 08/20/21 17:54 Alkaline Phosphatase 88 IU/L (40-130) 08/20/21 17:54 Total Protein 7.1 g/dL (6.6-8.7) 08/20/21 17:54 Albumin 4.1 g/dL (3.5-5.2) 08/20/21 17:54 Globulin 3.0 g/dL (1.3-4.6) 08/20/21 17:54 Discharge Plan Discharge Patient Disposition: Home Clinical Impression: Headache Qualifiers: Headache type: unspecified Headache chronicity pattern: unspecified pattern Intractability: not intractable Qualified Code(s): R51.9 - Headache, unspecified Condition: Stable Prescriptions: No Action doxepin 50 mg capsule See Rx Instructions PO .at bedtime Qty: 60 2RF Rx Instructions: 50mg-100mg PO .at bedtime; escitalopram oxalate [Lexapro] 10 mg tablet 10 mg PO DAILY Qty: 30 2RF aspirin 81 mg tablet,delayed release (DR/EC) 81 mg PO DAILY Qty: 30 0RF Discharge Orders: Discharge ED (Routine); Ordered 08/20/21 Ordered By: Norma Smith Referrals: Mara Pierce, RADIOISOTOPE PRODUCTION OPERATORThiernoC [Primary Care Provider] - 1-3 days Discharge Diet: Advance as tolerated Discharge Activity: Resume usual activity Coding Level of Care Code ED Ready Mix Truck Driver for Madison Aguayo NIH stroke score NIHSS Level Of Consciousness - 1a: 0 Level Of Consciousness Questions - 1b: Both Correct Level Of Consciousness Commands - 1c: Both Correct Best Gaze - 2: Normal Visual Monzon - 3: No Visual Loss Facial Palsy - 4: Normal Motor Arm Right - 5: No Drift Motor Arm Left - 5: No Drift Motor Leg Right - 6: No Drift Motor Leg Left - 6: No Drift Limb Ataxia - 7: Absent Sensory - 8: Normal Best Language - 9: No Aphasia Dysarthia - 10: Normal Extinction And Inattention - 11: 0 Score Total Score: 0 Documented by User: Norma Smith MD 08/20/21 18:43 HPI - Headache General: Chief Complaint: Headache Stated Complaint: confusion/headache/slurred speech Time Seen by Provider: 08/20/21 16:52 PFSH ED PFSH: Medical History Anxiety, generalized Centrilobular emphysema Cigarette smoker History of Lyme disease Insomnia Surgical History H/O hand surgery H/O knee surgery Right and left knee scope Previous back surgery Lumbar spine with cage. Had secondary infection with bacterial spine infection. Family History Other Bleeding disorder Denies family history of Diabetes CAD (coronary artery disease) Clotting disorder Chronic kidney disease (CKD) Social History Smoking and tobacco status: current every day smoker Second hand smoke exposure: No Smoking risk assessment/counseling performed?: No Alcohol intake: unknown Desire information about alcohol rehabilitation?: No Counseling given: No Desire information about substance/drug rehabilitation?: No Counseling given: No Adopted: No Caregiver/support person: No Lives independently: Yes Household members: spouse Housing: House Marital status: Highest education level completed: GED or Equivalent service: No Current occupational status: 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 Pets and animals: Yes Current gender identity: Male Course Vital Signs: Vital signs: Vital Signs Temperature 98.2 F 08/20/21 18:49 Pulse Rate 90 08/20/21 18:49 Respiratory Rate 18 08/20/21 18:49 Blood Pressure 138/78 08/20/21 18:49 Pulse Oximetry 94 08/20/21 18:49 MDM - Headache Medical Decision Making Patient presents here with a headache he does have a history of migraines and sounds like migraine with a variant he feels improved here after headache treatment he has no signs of a stroke or subarachnoid hemorrhage head CT and blood work is normal he is stable for discharge is to follow-up PCP and return if worsening. Lab Data : 08/20/21 17:54 08/20/21 17:[address] 08/20/21 16:59 IMPRESSION: No acute intracranial abnormality. Laboratory Results WBC 9.5 10^3/uL (4.0-10.0) 08/20/21 17:54 RBC 4.82 10^6/uL (4.1-5.3) 08/20/21 17:54 Hgb 14.9 g/dL (11.7-16.6) 08/20/21 17:54 Hct 43.4 % (42.0-52.0) 08/20/21 17:54 MCV 90.0 fl (80-94) 08/20/21 17:54 MCH 30.9 pg (28.0-34.0) 08/20/21 17:54 MCHC 34.3 g/dL (30.0-36.0) 08/20/21 17:54 RDW 12.6 % (12.1-15.1) 08/20/21 17:54 Plt Count 274 10^3/cmm (130-400) 08/20/21 17:54 MPV 9.7 fL (7.4-10.4) 08/20/21 17:54 Neut % (Auto) 54.0 % 08/20/21 17:54 Lymph % (Auto) 28.7 % 08/20/21 17:54 Bledsoe % (Auto) 12.6 % 08/20/21 17:54 Eos % (Auto) 3.9 % 08/20/21 17:54 Baso % (Auto) 0.6 % 08/20/21 17:54 Neut # (Auto) 5.11 10^3/uL (1.8-7.7) 08/20/21 17:54 Lymph # (Auto) 2.7 10^3/uL (0.8-4.8) 08/20/21 17:54 Bledsoe # (Auto) 1.2 10^3/uL (0.2-0.9) H 08/20/21 17:54 Eos # (Auto) 0.4 10^3/uL (0.0-0.8) 08/20/21 17:54 Baso # (Auto) 0.1 10^3/uL (0.0-0.1) 08/20/21 17:54 Nucleated RBC % (auto) 0 % 08/20/21 17:54 Nucleated RBCs # 0.0 /100WBC 08/20/21 17:54 Sodium 136 mmol/L (136-145) 08/20/21 17:54 Potassium 4.2 mmol/L (3.5-5.1) 08/20/21 17:54 Chloride 103 mmol/L (98-107) 08/20/21 17:54 Carbon Dioxide 21 mmol/L (22-29) L 08/20/21 17:54 Anion Gap 16.2 (5-19) 08/20/21 17:54 BUN 19 mg/dL (6-20) 08/20/21 17:54 Creatinine 1.0 mg/dL (0.7-1.2) 08/20/21 17:54 GFR Calculation 78.8 mL/min (90-130) L 08/20/21 17:54 Glucose 101 mg/dL (65-115) 08/20/21 17:54 Calculated Osmolality 284 mOsm/kg (285-295) L 08/20/21 17:54 Calcium 9.3 mg/dL (8.5-10.5) 08/20/21 17:54 Total Bilirubin 0.5 mg/dL (0.15-1.2) 08/20/21 17:54 AST 16 U/L (0-40) 08/20/21 17:54 ALT 20 U/L (0-41) 08/20/21 17:54 Alkaline Phosphatase 88 IU/L (40-130) 08/20/21 17:54 Total Protein 7.1 g/dL (6.6-8.7) 08/20/21 17:54 Albumin 4.1 g/dL (3.5-5.2) 08/20/21 17:54 Globulin 3.0 g/dL (1.3-4.6) 08/20/21 17:54 Discharge Plan Discharge Patient Disposition: Home Clinical Impression: Headache Qualifiers: Headache type: unspecified Headache chronicity pattern: unspecified pattern Intractability: not intractable Qualified Code(s): R51.9 - Headache, unspecified Condition: Stable Prescriptions: No Action doxepin 50 mg capsule See Rx Instructions PO .at bedtime Qty: 60 2RF Rx Instructions: 50mg-100mg PO .at bedtime; escitalopram oxalate [Lexapro] 10 mg tablet 10 mg PO DAILY Qty: 30 2RF aspirin 81 mg tablet,delayed release (DR/EC) 81 mg PO DAILY Qty: 30 0RF Discharge Orders: Discharge ED (Routine); Ordered 08/20/21 Ordered By: Norma Smith Referrals: Mara Pierce, RADIOISOTOPE PRODUCTION OPERATOR-C [Primary Care Provider] - 1-3 days Discharge Diet: Advance as tolerated Discharge Activity: Resume usual activity Coding Level of Care Code ED Ready Mix Truck Driver for Madison Aguayo NIH stroke score Score Total Score: 0
--- NOTE | 2021-08-20 16:59 | CTR_ITS ---
PROCEDURE INFORMATION: Exam: CT Head Without Contrast Exam date and time: 08/20/2021 5:18 PM Age: 50 years old Clinical indication: Headache; Patient HX: Double vision, base of skull pressure, RT temporal pain, normal blood pressure TECHNIQUE: Imaging protocol: Computed tomography of the head without contrast. Radiation optimization: All CT scans at this facility use at least one of these dose optimization techniques: automated exposure control; mA and/or kV adjustment per patient size (includes targeted exams where dose is matched to clinical indication); or iterative reconstruction. COMPARISON: No relevant prior studies available. RADIATION DOSE METRICS: Total DLP (mGy-cm): 860 FINDINGS: Brain: Normal. No hemorrhage. Unremarkable white matter. No mass effect. Cerebral ventricles: No ventriculomegaly. Paranasal sinuses: Visualized sinuses are unremarkable. No fluid levels. Mastoid air cells: Visualized mastoid air cells are well aerated. Bones/joints: Unremarkable. No acute fracture. Soft tissues: Unremarkable. CT/CT head wo con* [id number] IMPRESSION: No acute intracranial abnormality.
[2021-08-20] MEDS: promethazine 25 mg/mL SDV 1 mL IM (17:46)
[2021-08-20] MEDS: diphenhydrAMINE 50 mg/mL SDV 1mL IVP (17:49)
[2021-08-20] MEDS: ketorolac 30 mg/mL INJ IVP (17:49)
[2021-08-20] MEDS: sodium chloride 0.9% 1,000 ML 999 ML IV (18:00)
[2021-08-20 18:07] LABS: Basophils # 0.1 10^3/uL (0.0-0.1); Basophils % 0.6 %; Eosinophils # 0.4 10^3/uL (0.0-0.8); Eosinophils % 3.9 %; Hematocrit 43.4 % (42.0-52.0); Hemoglobin 14.9 g/dL (11.7-16.6); Lymphocytes # 2.7 10^3/uL (0.8-4.8); Lymphocytes % 28.7 %; Mean Corpuscular HGB Conc 34.3 g/dL (30.0-36.0); Mean Corpuscular Hemoglobin 30.9 pg (28.0-34.0); Mean Platelet Volume 9.7 fL (7.4-10.4); Monocytes # 1.2 10^3/uL (0.2-0.9); Monocytes % 12.6 %; Neutrophils # 5.11 10^3/uL (1.8-7.7); Nucleated Red Blood Cells % 0 %; Platelet Count 274 10^3/cmm (130-400); Red Blood Count 4.82 10^6/uL (4.1-5.3); Red Cell Distribution Width 12.6 % (12.1-15.1); White Blood Count 9.5 10^3/uL (4.0-10.0)
[2021-08-20 18:24] LABS: Alanine Aminotransferase 20 U/L (0-41); Albumin Level 4.1 g/dL (3.5-5.2); Alkaline Phosphatase 88 IU/L (40-130); Anion Gap 16.2 (5-19); Aspartate Amino Transferase 16 U/L (0-40); Blood Urea Nitrogen 19 mg/dL (6-20); Calcium 9.3 mg/dL (8.5-10.5); Carbon Dioxide 21 mmol/L (22-29); Chloride 103 mmol/L (98-107); Creatinine Clr Calc Pharmacy 97.9232; Glomerular Filtration Rate 78.8 mL/min (90-130); Glucose 101 mg/dL (65-115); Osmolality Calculated 284 mOsm/kg (285-295); Potassium 4.2 mmol/L (3.5-5.1); Sodium 136 mmol/L (136-145); Total Bilirubin 0.5 mg/dL (0.15-1.2); Total Protein 7.1 g/dL (6.6-8.7)
[2021-08-20 18:49] VITALS: BP 138/78; PULSE 90; RESP 18; TEMP 36.8; O2SAT 94
== END 2021-08-20 18:56 | disposition home or self-care (01) ==
PROVIDERS: Family Medicine; Emergency Provider Emergency Medicine; PCP Nurse Practitioner
DX: G43.909 Migraine, unspecified, not intractable, without status migrainosus (principal); F17.210 Nicotine dependence, cigarettes, uncomplicated
CPT/HCPCS: 70450; 80053; 85025; 96361; 96372; 96374; 96375; 99284; J1200; J1885; J2550; J7030

== ENCOUNTER 2021-11-22 15:25 | Outpatient (CLI) | payer OTHER, SELFPAY ==
--- NOTE | 2021-11-22 16:00 | MR_ITS ---
WS: [id number] MRI HEAD WITHOUT CONTRAST TECHNIQUE: Sagittal T1, T2 axial, T2 axial FLAIR, axial and coronal T1 images, axial susceptibility w eighted imaging, axial diffusion weighted images, and coronal T2 images were obtained. CLINICAL INFORMATION: R51.9 - Headache, unspecified COMPARISON: CT August 20, 2021 FINDINGS: No evidence restricted diffusion to suggest acute ischemia. Ventricular system and basal cisterns are patent. A few tiny foci of T2 hyperintensity in the periventricular and subcortical white matter non specific in a patient this age but can be seen with migraine headaches and small vessel disease. No s ignificant parenchymal volume loss. Normal posterior fossa. Normal vascular flow voids at the skull b ase. No extra axial fluid collections. No evidence of mass or mass effect. Paranasal sinuses are well aerated. Mild mucosal thickening in the RIGHT greater than LEFT mastoid ai r cells. No hemosiderin on susceptibly weighted images. Normal optic chiasm and pituitary infundibulu m. Normal cavernous sinuses and Meckel's cave. Temporal lobes and hippocampal formations are normal i n appearance. MR/MR head wo con* [id number] IMPRESSION: 1. No evidence of restricted diffusion to suggest acute ischemia. 2. A few small foci of T2 hyperintensity in the periventricular and subcortica l white matter nonspecific in a patient this age but can be seen with small ves adam disease or migraine headaches. 3. Mild mucosal thickening in the RIGHT greater than LEFT mastoid air cells. 4. No hemosiderin on susceptibly weighted images. 5. No other remarkable findings.
== END 2021-11-22 15:26 | disposition home or self-care (01) ==
LOC: RAD 15:25
PROVIDERS: PCP Nurse Practitioner; Visit Provider Nurse Practitioner
DX: R51.9 Headache, unspecified (principal)
CPT/HCPCS: 70551

== ENCOUNTER → 2022-01-30 08:12 | Outpatient (BNVA) | payer OTHER, SELFPAY | PROVIDERS: PCP Nurse Practitioner; Visit Provider Family Medicine | DX: E34.9 Endocrine disorder, unspecified (principal) | CPT/HCPCS: 82040; 84270; 84403 ==

== ENCOUNTER → 2022-03-22 10:01 | Outpatient (BNVA) | payer OTHER, SELFPAY | PROVIDERS: PCP Family Medicine; Visit Provider Family Medicine | DX: E34.9 Endocrine disorder, unspecified (principal); E29.1 Testicular hypofunction; Z77.018 Contact with and (suspected) exposure to other hazardous metals; F32.A Depression, unspecified | CPT/HCPCS: 82040; 84270; 84403 ==

== ENCOUNTER 2022-04-10 13:58 | Outpatient (CLI) | payer OTHER, SELFPAY ==
[2022-04-11 06:54] LABS: Sex Hormone Binding Globulin 43 nmol/L (10-50)
[2022-04-11 07:20] LABS: Testosterone Total Males IA 245 ng/dL (250-827)
[2022-04-12 17:10] LABS: Lead Blood <1.0 mcg/dL (<3.5)
[2022-04-13 15:59] LABS: Albumin 4.4 g/dL (3.6-5.1)
[2022-04-16 08:38] LABS: Arsenic Blood <10 mcg/L (<23); Mercury Blood <5 mcg/L (<OR=10)
== END 2022-04-10 13:59 | disposition home or self-care (01) ==
PROVIDERS: PCP Family Medicine; Visit Provider Family Medicine
DX: E34.9 Endocrine disorder, unspecified (principal); F32.A Depression, unspecified; Z77.018 Contact with and (suspected) exposure to other hazardous metals
CPT/HCPCS: 36415; 82040; 82175; 83655; 83825; 84270; 84403

== ENCOUNTER 2022-05-06 16:50 | Emergency (ER) | payer OTHER, SELFPAY ==
[2022-05-06 16:55] VITALS: BP 162/97; PULSE 82; RESP 16; TEMP 36.9; O2SAT 95; BMI 23.7
--- NOTE | 2022-05-06 18:08 | XRR_ITS ---
PROCEDURE INFORMATION: Exam: XR Chest Exam date and time: 05/06/2022 6:14 PM Age: 51 years old Clinical indication: Pain; Other: Tingling; Additional info: SOB TECHNIQUE: Imaging protocol: Radiologic exam of the chest. Views: 1 view. COMPARISON: CR XR chest 1V portable [id number] 04/30/2021 11:44 AM FINDINGS: Lungs: There is hazy interstitial prominence in the lower lobes compared to the prior studies concerning for mild bronchitis or viral pneumonitis. No lobar consolidation. There is stable hyperinflation compared to the prior exam with an unchanged calcified granuloma left upper lobe. Pleural spaces: Unremarkable. No pleural effusion. No pneumothorax. Heart/Mediastinum: Unremarkable. No cardiomegaly. Bones/joints: No acute abnormality. Other findings: No cephalization of flow a david CHF. XR/XR chest 1V portable [id number] IMPRESSION: There is hazy interstitial prominence in the lower lobes compared to the prior studies concerning for mild bronchitis or viral pneumonitis.
--- NOTE | 2022-05-06 18:08 | ECG_ITS ---
[facility] Test Date: 2022-05-06 Pat Name: Tyrell Paniagua Department: Room: Gender: Male Installer: : 1970 Requested By: Norma Smith Order Number: [id number] Sharita MD: Juan Manuel Crowe M.D. Measurements Intervals [place] Rate: 78 P: 75 UT: 152 QRS: 16 QRSD: 98 T: 59 QT: 368 QTc: 421 Interpretive Statements SINUS RHYTHM INCOMPLETE RIGHT BUNDLE BRANCH BLOCK [90+ ms QRS DURATION, TERMINAL R IN V1/V2, 40+ ms S IN I/aVL/V4/V5/V6] Compared to ECG 04/30/2021 15:13:08 No significant changes Electronically Signed On 05-07-2022 7:40:18 PATIENT INTAKE COORDINATOR by Juan Manuel Crowe M.D. [id number]
[2022-05-06 18:19] VITALS: PULSE 69; RESP 17; O2SAT 97
--- NOTE | 2022-05-06 19:46 | CTR_ITS ---
PROCEDURE INFORMATION: Exam: CT Head Without Contrast Exam date and time: 05/06/2022 8:48 PM Age: 51 years old Clinical indication: Patient HX: General weakness with dizziness. TECHNIQUE: Imaging protocol: Computed tomography of the head without contrast. Radiation optimization: All CT scans at this facility use at least one of these dose optimization techniques: automated exposure control; mA and/or kV adjustment per patient size (includes targeted exams where dose is matched to clinical indication); or iterative reconstruction. COMPARISON: MR head wo con* [id number] 11/22/2021 3:53 PM RADIATION DOSE METRICS: Total DLP (mGy-cm): 1019.48 FINDINGS: Brain: Normal. No hemorrhage. Unremarkable white matter. No mass effect. Cerebral ventricles: No ventriculomegaly. Paranasal sinuses: Visualized sinuses are unremarkable. No fluid levels. Mastoid air cells: Visualized mastoid air cells are well aerated. Bones/joints: Unremarkable. No acute fracture. Soft tissues: Unremarkable. CT/CT head wo con* [id number] IMPRESSION: No acute intracranial abnormality.
--- NOTE | 2022-05-06 19:51 | ED_ITS ---
HPI - SOB/Dyspnea General: Chief Complaint: Shortness of Breath/Dyspnea Stated Complaint: AMS, sob Time Seen by Provider: 05/06/22 19:41 Source: patient Mode of arrival: ambulatory Limitations: no limitations History of Present Illness: HPI Narrative: 51-year-old male states over the last 2 to 3 months he has been having some increasing confusion he states that he just gets generally confused at times thinks he is also been having some chest pain he is also had a chronic cough he has multiple complaints he states been going on for months he has had known heavy metal exposure but has had no treatment he denies any vomiting denies any diarrhea he is well-appearing here has had some mild headaches he is able answer my questions appropriately here. Associated symptoms: Reports chest pain Review of Systems Card: Reports: chest pain Resp: Reports: dyspnea Neuro: Reports: confusion PFS ED PFSH: Medical History Anxiety, generalized Centrilobular emphysema Cigarette smoker History of Lyme disease Insomnia Surgical History H/O hand surgery H/O knee surgery Right and left knee scope Previous back surgery Lumbar spine with cage. Had secondary infection with bacterial spine infection. Family History Other Bleeding disorder Denies family history of Diabetes CAD (coronary artery disease) Clotting disorder Chronic kidney disease (CKD) Social History Smoking and tobacco status: current every day smoker Second hand smoke exposure: No Smoking risk assessment/counseling performed?: No Alcohol intake: unknown Desire information about alcohol rehabilitation?: No Counseling given: No Desire information about substance/drug rehabilitation?: No Counseling given: No Adopted: No Caregiver/support person: No Lives independently: Yes Household members: spouse Housing: House Marital status: Highest education level completed: GED or Equivalent service: No Current occupational status: 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 and animals: Yes Current gender identity: Male Physical Exam Const: COMMON NORMALS: no acute distress, patient oriented x3 and healthy appearing HENMT: COMMON NORMALS: normocephalic and atraumatic HEAD & SCALP: normocephalic and atraumatic Eye: COMMON NORMALS: Equal, round and reactive pupils present and EOMs intact bilaterally PUPIL: Yes Equal, round and reactive pupils present Neck/C-Spine: COMMON NORMALS: full ROM and supple Chest: COMMONS NORMALS: normal inspection of the chest and normal palpation of entire chest wall Resp: COMMON NORMALS: normal respiratory effort, No retractions, No use of accessory muscles and clear to auscultation bilaterally AUSCULTATION: clear to auscultation bilaterally Cardio: COMMON NORMALS: regular rate, regular rhythm and No murmurs present (Cardio) RATE: regular rate RHYTHM: regular rhythm GI: COMMON NORMALS: Normal to inspection, nondistended, normoactive bowel sounds present, Soft to palpation, non-tender and no masses PALPATION: Yes Soft to palpation Extremity: COMMON NORMALS: normal to inspection and full ROM Neuro: COMMON NORMALS: patient oriented x3, moves all extremities and no focal motor deficits Psych: COMMON NORMALS: mental status grossly normal, Normal thought process present and cooperative THOUGHT PROCESS: Normal thought process present Skin: COMMON NORMALS: no rashes or lesions noted and no wounds GENERAL SKIN EXAM: no rashes or lesions noted Course Vital Signs: Vital signs: Vital Signs Temperature 98.4 F 05/06/22 16:55 Pulse Rate 56 L 05/06/22 22:27 Respiratory Rate 16 05/06/22 22:27 Blood Pressure 114/71 05/06/22 22:27 Pulse Oximetry 94 05/06/22 22:27 Oxygen Delivery Me thod 05/06/22 16:55 MDM - SOB/Dyspnea Medical Decision Making Patient presents with chest pain his troponins here are normal head CT is normal he is not confused here this could be due to his heavy metal exposure he had already followed up with specialist who recommended collation therapy I did inform him he needs to follow back up with that specialist return if worsening. Lab Data 05/06/22 19:37 05/06/22 19:37 Labs/Radiology: Radiology Impressions Chest X-Ray 05/06/22 18:08 IMPRESSION: There is hazy interstitial prominence in the lower lobes compared to the prior studies concerning for mild bronchitis or viral pneumonitis. Head CT 05/06/22 19:46 IMPRESSION: No acute intracranial abnormality. Laboratory Results WBC 8.0 10^3/uL (4.0-10.0) 05/06/22 19:37 RBC 5.36 10^6/uL (4.1-5.3) H 05/06/22 19:37 Hgb 16.4 g/dL (11.7-16.6) 05/06/22 19:37 Hct 49.5 % (42.0-52.0) 05/06/22 19:37 MCV 92.4 fl (80-94) 05/06/22 19:37 MCH 30.6 pg (28.0-34.0) 05/06/22 19:37 MCHC 33.1 g/dL (30.0-36.0) 05/06/22 19:37 RDW 12.4 % (12.1-15.1) 05/06/22 19:37 Plt Count 251 10^3/cmm (130-400) 05/06/22 19:37 MPV 9.7 fL (7.4-10.4) 05/06/22 19:37 Neut % (Auto) 50.4 % 05/06/22 19:37 Lymph % (Auto) 30.8 % 05/06/22 19:37 [place] % (Auto) 13.4 % 05/06/22 19:37 Eos % (Auto) 4.5 % 05/06/22 19:37 Baso % (Auto) 0.7 % 05/06/22 19:37 Neut # (Auto) 4.04 10^3/uL (1.8-7.7) 05/06/22 19:37 Lymph # (Auto) 2.5 10^3/uL (0.8-4.8) 05/06/22 19:37 [place] # (Auto) 1.1 10^3/uL (0.2-0.9) H 05/06/22 19:37 Eos # (Auto) 0.4 10^3/uL (0.0-0.8) 05/06/22 19:37 Baso # (Auto) 0.1 10^3/uL (0.0-0.1) 05/06/22 19:37 Nucleated RBC % (auto) 0 % 05/06/22 19:37 Nucleated RBCs # 0.0 /100WBC 05/06/22 19:37 Sodium 136 mmol/L (136-145) 05/06/22 19:37 Potassium 4.2 mmol/L (3.5-5.1) 05/06/22 19:37 Chloride 102 mmol/L (98-107) 05/06/22 19:37 Carbon Dioxide 28 mmol/L (22-29) 05/06/22 19:37 Anion Gap 10.2 (5-19) 05/06/22 19:37 BUN 12 mg/dL (6-20) 05/06/22 19:37 Creatinine 0.9 mg/dL (0.7-1.2) 05/06/22 19:37 GFR Calculation 88.6 mL/min (90-130) L 05/06/22 19:37 Glucose 84 mg/dL (65-115) 05/06/22 19:37 Calculated Osmolality 281 mOsm/kg (285-295) L 05/06/22 19:37 Calcium 9.6 mg/dL (8.5-10.5) 05/06/22 19:37 Total Bilirubin 1.3 mg/dL (0.15-1.2) H 05/06/22 19:37 AST 16 U/L (0-40) 05/06/22 19:37 ALT 20 U/L (0-41) 05/06/22 19:37 Alkaline Phosphatase 73 U/L (40-130) 05/06/22 19:37 Troponin T Baseline 6 ng/L (0-15) 05/06/22 19:37 Troponin T 120 Minute 6.00 ng/L (0-15) 05/06/22 21:36 NT-Pro-B Natriuret Pep 14 pg/mL (0-125) 05/06/22 19:37 Total Protein 6.7 g/dL (6.6-8.7) 05/06/22 19:37 Albumin 4.5 g/dL (3.5-5.2) 05/06/22 19:37 Globulin 2.2 g/dL (1.3-4.6) 05/06/22 19:37 TSH 3.51 uIU/mL (0.27-4.20) 05/06/22 19:37 Urine Color Colorless (Yellow) 05/06/22 17:05 Urine Appearance Clear (CLEAR) 05/06/22 17:05 Urine pH 5 (5-7) 05/06/22 17:05 Ur Specific [place] 1.010 (1.005-1.030) 05/06/22 17:05 Urine Protein Neg (Negative) 05/06/22 17:05 Urine Glucose (UA) Norm (Normal) 05/06/22 17:05 Urine Ketones Negative (Negative) 05/06/22 17:05 Urine Blood Neg (Negative) 05/06/22 17:05 Urine Nitrate Negative (Negative) 05/06/22 17:05 Urine Bilirubin Neg (Negative) 05/06/22 17:05 Urine Urobilinogen Norm mg/dL (Negative) 05/06/22 17:05 Ur Leukocyte Esterase Negative (Negative) 05/06/22 17:05 Influenza Type A Ag negative (Negative) 05/06/22 19:52 Influenza Type B Ag negative (Negative) 05/06/22 19:52 SARS-CoV-2 Ag (Rapid) negative (Negative) 05/06/22 19:52 EKG Data EKG 1: I personally reviewed and interpreted this EKG as follows: EKG Interpretation Date: 05/06/22 EKG interpretation time: 17:03 Interpretation: nsr hr [address] or t wave abnormalities qrs 98 qtc 402 EKG 2: I personally reviewed and interpreted this EKG as follows: EKG Interpretation Date: 05/06/22 EKG interpretation time: 20:02 Interpretation: sinus alix hr [address] or t wave abnormalities qrs 101 qtc 412 Discharge Plan Discharge Patient Disposition: Home Clinical Impression: Chest pain, Confusion Condition: Stable Prescriptions: No Action escitalopram oxalate 10 mg tablet See Rx Instructions .ROUTE .COMPLEX Qty: 30 5RF Dose Instruction: TAKE ONE TABLET BY MOUTH DAILY FOR MOOD Rx Instructions: TAKE ONE TABLET BY MOUTH DAILY FOR MOOD clonazepam 1 mg tablet 1 mg PO TID Qty: 90 1RF Rx Instructions: for anxiety testosterone cypionate [Depo-Testosterone] 200 mg/mL oil 200 mg SUBCUT Q7D Qty: 10 0RF Discharge Orders: Discharge ED (Routine); Ordered 05/06/22 Ordered By: Norma Smith Referrals: Micah Williamson DO [Primary Care Provider] - 1-3 days Discharge Diet: Advance as tolerated Discharge Activity: Resume usual activity Patient Instructions: Confusion, Chest Pain (ED) Coding Level of Care Code ED Smoking Pipes Cleaner for Chg Fwd Exam Comprehensive
--- NOTE | 2022-05-06 20:02 | ECG_ITS ---
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 Measurements Intervals [place] Rate: 55 P: 67 KS: 162 QRS: 27 QRSD: 101 T: 57 QT: 424 QTc: 406 Interpretive Statements SINUS BRADYCARDIA INCOMPLETE RIGHT BUNDLE BRANCH BLOCK [90+ ms QRS DURATION, TERMINAL R IN V1/V2, 40+ ms S IN I/aVL/V4/V5/V6] Compared to ECG 04/30/2021 15:13:08 Sinus rhythm no longer present Electronically Signed On 05-07-2022 7:48:35 STICK WELDER by Juan Manuel Crowe M.D. [id number]
[2022-05-06 20:04] LABS: Basophils # 0.1 10^3/uL (0.0-0.1); Basophils % 0.7 %; Eosinophils # 0.4 10^3/uL (0.0-0.8); Eosinophils % 4.5 %; Hematocrit 49.5 % (42.0-52.0); Hemoglobin 16.4 g/dL (11.7-16.6); Lymphocytes # 2.5 10^3/uL (0.8-4.8); Lymphocytes % 30.8 %; Mean Corpuscular HGB Conc 33.1 g/dL (30.0-36.0); Mean Corpuscular Hemoglobin 30.6 pg (28.0-34.0); Mean Corpuscular Volume 92.4 fl (80-94); Mean Platelet Volume 9.7 fL (7.4-10.4); Monocytes # 1.1 10^3/uL (0.2-0.9); Monocytes % 13.4 %; Neutrophils # 4.04 10^3/uL (1.8-7.7); Neutrophils % 50.4 %; Nucleated Red Blood Cells % 0 %; Platelet Count 251 10^3/cmm (130-400); Red Blood Count 5.36 10^6/uL (4.1-5.3); Red Cell Distribution Width 12.4 % (12.1-15.1)
[2022-05-06 20:09] LABS: Add Urine Microscopic? NO; Charge for UA Resulting for Rev
[2022-05-06 20:26] LABS: Troponin(5th) Baseline 6 ng/L (0-15)
[2022-05-06 20:27] LABS: Bilirubin Urine Neg (Negative); Blood Urine Neg (Negative); Glucose Urine UA Norm (Normal); Ketones Urine Negative (Negative); Leukocyte Esterase Urine Negative (Negative); Nitrate Urine Negative (Negative); Protein Urine Neg (Negative); Urine Appearance Clear (CLEAR); Urine Color Colorless (Yellow); Urobilinogen Urine Norm (Negative); pH Urine 5 (5-7)
[2022-05-06 20:39] LABS: Alanine Aminotransferase 20 U/L (0-41); Albumin Level 4.5 g/dL (3.5-5.2); Alkaline Phosphatase 73 U/L (40-130); Anion Gap 10.2 (5-19); Aspartate Amino Transferase 16 U/L (0-40); Blood Urea Nitrogen 12 mg/dL (6-20); Calcium 9.6 mg/dL (8.5-10.5); Carbon Dioxide 28 mmol/L (22-29); Chloride 102 mmol/L (98-107); Globulin 2.2 g/dL (1.3-4.6); Glomerular Filtration Rate 88.6 mL/min (90-130); Glucose 84 mg/dL (65-115); NT Pro B Type Natriuretic Pept 14 pg/mL (0-125); Osmolality Calculated 281 mOsm/kg (285-295); Potassium 4.2 mmol/L (3.5-5.1); Sodium 136 mmol/L (136-145); Thyroid Stimulating Hormone 3.51 uIU/mL (0.27-4.20); Total Bilirubin 1.3 mg/dL (0.15-1.2); Total Protein 6.7 g/dL (6.6-8.7)
[2022-05-06 20:42] LABS: Influenza A by IFA negative (Negative); Influenza B by IFA negative (Negative); SARS Covid-2 Antigen negative (Negative)
[2022-05-06 22:27] VITALS: BP 114/71; PULSE 56; RESP 16; O2SAT 94
[2022-05-06 23:01] LABS: Troponin 5 2HR Delta 0 ABS# (0-10)
== END 2022-05-06 22:28 | disposition home or self-care (01) ==
PROVIDERS: Emergency Provider Emergency Medicine; PCP Family Medicine
DX: R41.0 Disorientation, unspecified (principal); R07.9 Chest pain, unspecified; Z20.822 Contact with and (suspected) exposure to COVID-19; F17.210 Nicotine dependence, cigarettes, uncomplicated
CPT/HCPCS: 36415; 70450; 71045; 80053; 81003; 83880; 84443; 84484; 85025; 87426; 87804; 93005; 99285

== ENCOUNTER → 2022-07-02 14:57 | Outpatient (BNVA) | payer OTHER, SELFPAY | PROVIDERS: PCP Family Medicine; Visit Provider Nurse Practitioner Family | DX: J02.9 Acute pharyngitis, unspecified (principal) | CPT/HCPCS: 87071; 87880 ==

== ENCOUNTER → 2022-08-15 09:50 | Outpatient (BNVA) | payer MEDICAID, SELFPAY | PROVIDERS: PCP Family Medicine; Visit Provider Family Medicine | DX: L81.9 Disorder of pigmentation, unspecified (principal) | CPT/HCPCS: 88304 ==

== ENCOUNTER → 2022-08-22 09:37 | Outpatient (BNVA) | payer MEDICAID, SELFPAY | PROVIDERS: PCP Family Medicine; Visit Provider Family Medicine | DX: R10.9 Unspecified abdominal pain (principal); Z86.19 Personal history of other infectious and parasitic diseases; Z76.89 Persons encountering health services in other specified circumstances; R69 Illness, unspecified; F32.A Depression, unspecified; F41.1 Generalized anxiety disorder; Z12.5 Encounter for screening for malignant neoplasm of prostate; R53.82 Chronic fatigue, unspecified | CPT/HCPCS: 80053; 80061; 82390; 84443; 85025; 85651; 86003; 86008; 86140; 86160; 86162; 86235; 86255; 86376; 86618; 86666; 86757; 86803; 87806; G0103 ==

== ENCOUNTER 2023-01-02 15:34 | Emergency (ER) | payer BC, MEDICAID, SELFPAY ==
[2023-01-02 15:49] VITALS: BP 143/84; PULSE 80; RESP 15; TEMP 36.7; O2SAT 97
--- NOTE | 2023-01-02 17:06 | CTR_ITS ---
PROCEDURE INFORMATION: Exam: CT Abdomen And Pelvis With Contrast Exam date and time: 01/02/2023 5:43 PM Age: 52 years old Clinical indication: Abdominal pain; Localized; Right lower quadrant (rlq); Additional info: Right lower quadrant pain TECHNIQUE: Imaging protocol: Computed tomography of the abdomen and pelvis with contrast. Radiation optimization: All CT scans at this facility use at least one of these dose optimization techniques: automated exposure control; mA and/or kV adjustment per patient size (includes targeted exams where dose is matched to clinical indication); or iterative reconstruction. Contrast material: OMNI 350; Contrast volume: 100 ml; Contrast route: INTRAVENOUS (IV); REPORTING DATA: Count of CT and Cardiac NM exams in prior 12 months: This patient has received [address] and 0 known cardiac nuclear medicine studies in the 12 months prior to the current study. COMPARISON: CT angio chest PE protcl [id number] 04/30/2021 4:07 PM RADIATION DOSE METRICS: Total DLP (mGy-cm): 411 FINDINGS: Liver: Focal fatty infiltration in the left liver lobe. Small cyst in segment 1, Hounsfield units less than 20. No suspicious liver nodule. Gallbladder and bile ducts: Normal. No calcified stones. No ductal dilation. Pancreas: Normal. No ductal dilation. Spleen: Calcified granulomas in the spleen. Adrenal glands: Normal. No mass. Kidneys and ureters: Severely atrophic and dysplastic left kidney. Compensatory hypertrophy of the right kidney. The right kidney is otherwise unremarkable. No calculus or hydronephrosis. Stomach and bowel: The stomach is decompressed. The small bowel and colon are unremarkable. No wall thickening or obstruction. Appendix: The appendix is visualized and is normal. Intraperitoneal space: Unremarkable. No free air. No significant fluid collection. Vasculature: Arterial calcifications. No aneurysm. 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 Lymph nodes: Unremarkable. No enlarged lymph nodes. Urinary bladder: Mild wall thickening in the anterior urinary bladder which is partially filled. Reproductive: Unremarkable as visualized. Bones/joints: Posterior mechanical fusion of L4-S1 with anterior spacer at L5-S1. L4-L5 decompressive laminectomies. No fracture. Soft tissues: Calcified injection granulomas in the left buttock. CT/CT abdomen pelvis w con* [id number] IMPRESSION: 1. No evidence for appendicitis. 2. Atrophic dysplastic left kidney. 3. Mild wall thickening in the anterior urinary bladder is most likely related to incomplete distention. Cystitis is not excluded.
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
[2023-01-02 17:28] LABS: Add Urine Microscopic? NO; Charge for UA Resulting for Rev
[2023-01-02 17:31] LABS: Basophils # 0.1 10^3/uL (0.0-0.1); Basophils % 0.6 %; Eosinophils # 0.2 10^3/uL (0.0-0.8); Eosinophils % 2.4 %; Hematocrit 43.7 % (37-53); Lymphocytes # 1.7 10^3/uL (0.8-4.8); Lymphocytes % 19.7 %; Mean Corpuscular HGB Conc 34.8 g/dL (30-55); Mean Corpuscular Hemoglobin 31.1 pg (27-33); Mean Corpuscular Volume 89.4 fl (82-101); Mean Platelet Volume 9.6 fL (7.4-10.4); Monocytes % 11.4 %; Neutrophils # 5.82 10^3/uL (1.8-7.7); Neutrophils % 65.7 %; Nucleated Red Blood Cells % 0 %; Platelet Count 256 10^3/cmm (157-399); Red Blood Count 4.89 10^6/uL (3.85-5.65); Red Cell Distribution Width 12.3 % (12.1-15.1); White Blood Count 8.85 10^3/uL (3.29-11.43)
[2023-01-02 17:35] LABS: Bilirubin Urine Neg (Negative); Blood Urine Neg (Negative); Glucose Urine UA Norm (Normal); Ketones Urine Negative (Negative); Leukocyte Esterase Urine Negative (Negative); Nitrate Urine Negative (Negative); Protein Urine Neg (Negative); Urine Appearance Clear (CLEAR); Urine Color Yellow (Yellow); Urobilinogen Urine Norm (Negative); pH Urine 5 (5-7)
[2023-01-02] MEDS: iohexol 350 mg/mL 500 mL Btl (per mL) IV (17:45)
[2023-01-02 17:51] LABS: Alanine Aminotransferase 15 U/L (0-41); Albumin Level 4.3 g/dL (3.5-5.2); Alkaline Phosphatase 88 U/L (40-130); Anion Gap 13.9 (5-19); Aspartate Amino Transferase 15 U/L (0-40); Blood Urea Nitrogen 15 mg/dL (6-20); Calcium 8.8 mg/dL (8.5-10.5); Carbon Dioxide 23 mmol/L (22-29); Chloride 100 mmol/L (98-107); Globulin 2.9 g/dL (1.3-4.6); Glomerular Filtration Rate 78.2 mL/min (90-130); Glucose 84 mg/dL (65-115); Lipase 40 U/L (13-60); Osmolality Calculated 276 mOsm/kg (285-295); Potassium 3.9 mmol/L (3.5-5.1); Sodium 133 mmol/L (136-145); Total Bilirubin 0.8 mg/dL (0.15-1.2); Total Protein 7.2 g/dL (6.6-8.7)
[2023-01-02] MEDS: sodium chloride 0.9% 1,000 ML 999 ML IV (17:57)
[2023-01-02] MEDS: ketorolac 30 mg/mL INJ 15 MG IVP (18:00)
[2023-01-02] MEDS: metoclopramide 5 mg/mL SDV 2 mL 10 MG IVP (18:00)
[2023-01-02 18:01] VITALS: BP 157/89; PULSE 59; RESP 16; O2SAT 96
[2023-01-02 18:47] VITALS: BP 132/84; PULSE 60; RESP 16; O2SAT 96
[2023-01-02 19:29] VITALS: BP 141/98
== END 2023-01-02 19:30 | disposition home or self-care (01) ==
PROVIDERS: Emergency Provider Family Medicine
DX: R10.31 Right lower quadrant pain (principal); G89.29 Other chronic pain; M54.50 Low back pain, unspecified; F17.210 Nicotine dependence, cigarettes, uncomplicated
CPT/HCPCS: 74177; 80053; 81003; 83690; 85025; 96374; 96375; 99285; J1885; J2765; J7030; Q9967

== ENCOUNTER 2023-07-07 08:11 | Outpatient (CLI) | payer BC, MEDICAID, SELFPAY ==
--- NOTE | 2023-07-07 08:18 | CT_ITS ---
WS: [id number] LDCT LUNG CANCER SCREENING TECHNIQUE: Noncontrast CT of the chest with coronal and sagittal reformatted images. CLINICAL INFORMATION: NICOTINE DEPENDENCE,CIGARETTES COMPARISON: None. DLP: 59.79 mGy.cm DIvol: Mean CTDIvol: 1.00 (mGy) All CT scans at [facility] use at least one of these dose optimization techniques: automat ed exposure control; mA and/or kV adjustment per patient size (includes targeted exams where dose is matched to clinical indication); or iterative reconstruction. FINDINGS: 7 mm noncalcified nodule along the LEFT upper lobe anterior medially along the pleura. Chronic advanced centrilobular emphysema. Few calcified granulomas. No mediastinal or hilar lymphaden opathy. A few calcified anterior mediastinal and AP window lymph nodes. Calcified LEFT hilar lymph no humphrey. Vascular calcification. No axillary lymphadenopathy. Adrenal glands are normal. IMPRESSION: CT/CT lung screening [id number] LUNG-RADS: 2-Benign Appearance or Behavior FOLLOW UP: 12 Month: Continue annual screening with LDCT
== END 2023-07-07 08:12 | disposition home or self-care (01) ==
LOC: RAD 08:12
PROVIDERS: Visit Provider Family Medicine
DX: Z12.2 Encounter for screening for malignant neoplasm of respiratory organs (principal); F17.210 Nicotine dependence, cigarettes, uncomplicated; J43.2 Centrilobular emphysema
CPT/HCPCS: 71271

== ENCOUNTER 2023-08-19 00:55 | Emergency (ER) | payer BC, MEDICAID, SELFPAY ==
[2023-08-19 01:00] VITALS: BP 145/88; PULSE 71; RESP 16; TEMP 36.6; O2SAT 95
--- NOTE | 2023-08-19 01:03 | XRR_ITS ---
PROCEDURE INFORMATION: Exam: XR Abdomen Exam date and time: 08/19/2023 1:12 AM Age: 52 years old Clinical indication: Abdominal pain; Prior surgery; Surgery date: 6+ months; Surgery type: Spine TECHNIQUE: Imaging protocol: Radiologic exam of the abdomen. Views: 2 Views. Upright and supine views. COMPARISON: CT abdomen pelvis w con* [id number] 01/02/2023 5:43 PM FINDINGS: Lungs: Emphysematous change. Gastrointestinal tract: [id number] colonic stool burden. Paucity of small bowel gas. Round calcified bodies appreciated over the left hemipelvis, correlates with cutaneous granulomas seen on cross-sectional imaging. Intraperitoneal space: Normal. No free air. Bones/joints: Posterior spinal fusion hardware and laminectomy changes without evidence for acute surgical complication. Diffuse degenerative change of the visualized osseous structures. XR/XR acute abdomen series [id number] IMPRESSION: 1. Paucity of small bowel gas, correlate with possible underlying enteritis. 2. Additional nonacute findings as above.
--- NOTE | 2023-08-19 01:09 | ED_ITS ---
HPI - Abdominal Pain 2 General: Chief Complaint: Abdominal Pain Stated Complaint: Bouts of Confusion\ABD Pain Time Seen by Provider: 08/19/23 00:56 History of Present Illness: 52-year-old male with a history of anxie ty who presents emergency room with abdominal pain and constipation. He says this is been going on for couple weeks. He also complains that at times he feels confused. He has had some subjective fevers at home. No dysuria. He had some nausea but no vomiting. Review of Systems 2 Narrative: Constitutional symptoms: Negative except as documented in HPI. Skin symptoms: Negative except as documented in HPI. Eye symptoms: Negative except as documented in HPI. ENMT symptoms: Negative except as documented in HPI. Respiratory symptoms: Negative except as documented in HPI. Cardiovascular symptoms: Negative except as documented in HPI. Gastrointestinal symptoms: Negative except as documented in HPI. Genitourinary symptoms: Negative except as documented in HPI. Musculoskeletal symptoms: Negative except as documented in HPI. Neurologic symptoms: Negative except as documented in HPI. Psychiatric symptoms: Negative except as documented in HPI. Endocrine symptoms: Negative except as documented in HPI. PFSH ED 2 PFSH: Medical History Insomnia History of Lyme disease Centrilobular emphysema Anxiety, generalized Cigarette smoker Surgical History Previous back surgery Lumbar spine with cage. Had secondary infection with bacterial spine infection. 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 Skin: Warm, dry. Head: Normocephalic, atraumatic. Neck: Supple, trachea midline. Eye: Extraocular movements are intact. Ears, nose, mouth and throat: mucosa moist. Cardiovascular: Regular, Normal peripheral perfusion. Respiratory: Lungs are clear to auscultation, respirations are non-labored, breath sounds are equal, Symmetrical chest wall expansion. Gastrointestinal: Soft, Nontender, Non distended, Normal bowel sounds. Musculoskeletal: Normal ROM, no deformity. Neurological: Alert and oriented, No focal neurological deficit observed. Psychiatric: Cooperative, appropriate mood & affect. Course 2 Vital Signs: Vital signs: Vital Signs Temperature 97.8 F 08/19/23 01:00 Pulse Rate 62 08/19/23 02:35 Respiratory Rate 16 08/19/23 01:47 Blood Pressure 112/72 08/19/23 02:35 Pulse Oximetry 92 08/19/23 02:35 Oxygen Delivery Me thod Room Air 08/19/23 01:47 MDM - Abdominal Pain Medical Decision Making Medical decision making: Differential diagnosis including but not limited to and based on the above HPI, review of systems and physical exam: Constipation versus bowel obstruction versus diverticulitis etc. Orders placed to evaluate differential diagnosis based on the above differential, HPI and physical exam Lab Review: Laboratory results were reviewed and interpreted by myself the emergency room physician. Lab work is fairly unremarkable. White count is 12.7. Hemoglobin is 15. BUN and creatinine are [address] of the abdomen pelvis with contrast: Possible mild ileus. No obstruction. No diverticulitis. I reviewed the patient's medical record. Reexamination: Patient remained stable. No increased work of breathing. No altered mental status. Assessment and plan: Constipation Abdominal pain - Discharged home - Discussed findings and plan with patient. Answered any questions. - All laboratory values were reviewed and interpreted personally by myself, the ER physician - All imaging was reviewed and interpreted personally by myself, the ER physician. - Evaluation and treatment of this problem were appropriate in the emergency setting Lab Data 08/19/23 01:13 08/19/23 01:13 Labs/Radiology: Radiology Impressions Chest/Abdomen X-ray 08/19/23 01:03 IMPRESSION: 1. Paucity of small bowel gas, correlate with possible underlying enteritis. 2. Additional nonacute findings as above. Abdomen/Pelvis CT 08/19/23 01:44 IMPRESSION: 1. Local ileus within the left upper quadrant. 2. Circumferential wall thickening of the urinary bladder which is similar to prior comparisons. If there is concern for cystitis, recommend correlation with laboratory findings. 3. Otherwise, unchanged nonacute findings as above. Laboratory Results WBC 12.76 10^3/uL (3.29-11.43) H 08/19/23 01:13 RBC 4.83 10^6/uL (3.85-5.65) 08/19/23 01:13 Hgb 15.20 g/dL (11.27-16.99) 08/19/23 01:13 Hct 43.4 % (37-53) 08/19/23 01:13 MCV 89.9 fl (82-101) 08/19/23 01:13 MCH 31.5 pg (27-33) 08/19/23 01:13 MCHC 35.0 g/dL (30-55) 08/19/23 01:13 RDW 12.0 % (12.1-15.1) L 08/19/23 01:13 Plt Count 248 10^3/cmm (157-399) 08/19/23 01:13 MPV 9.5 fL (7.4-10.4) 08/19/23 01:13 Neut % (Auto) 67.6 % 08/19/23 01:13 Lymph % (Auto) 17.2 % 08/19/23 01:13 [place] % (Auto) 10.1 % 08/19/23 01:13 Eos % (Auto) 4.4 % 08/19/23 01:13 Baso % (Auto) 0.5 % 08/19/23 01:13 Neut # (Auto) 8.62 10^3/uL (1.8-7.7) H 08/19/23 01:13 Lymph # (Auto) 2.2 10^3/uL (0.8-4.8) 08/19/23 01:13 [place] # (Auto) 1.3 10^3/uL (0.2-0.9) H 08/19/23 01:13 Eos # (Auto) 0.6 10^3/uL (0.0-0.8) 08/19/23 01:13 Baso # (Auto) 0.1 10^3/uL (0.0-0.1) 08/19/23 01:13 Nucleated RBC % (auto) 0 % 08/19/23 01:13 Nucleated RBCs # 0.0 /100WBC 08/19/23 01:13 Sodium 137 mmol/L (136-145) 08/19/23 01:13 Potassium 3.9 mmol/L (3.5-5.1) 08/19/23 01:13 Chloride 105 mmol/L (98-107) 08/19/23 01:13 Carbon Dioxide 20 mmol/L (22-29) L 08/19/23 01:13 Anion Gap 15.9 (5-19) 08/19/23 01:13 BUN 19 mg/dL (6-20) 08/19/23 01:13 Creatinine 0.9 mg/dL (0.7-1.2) 08/19/23 01:13 GFR Calculation 88.3 mL/min (90-130) L 08/19/23 01:13 Glucose 141 mg/dL (65-115) H 08/19/23 01:13 Calculated Osmolality 289 mOsm/kg (285-295) 08/19/23 01:13 Lactic Acid 0.7 mmol/L (0.5-2.2) 08/19/23 01:13 Calcium 8.7 mg/dL (8.5-10.5) 08/19/23 01:13 Total Bilirubin 0.6 mg/dL (0.15-1.2) 08/19/23 01:13 AST 13 U/L (0-40) 08/19/23 01:13 ALT 15 U/L (0-41) 08/19/23 01:13 Alkaline Phosphatase 91 U/L (40-130) 08/19/23 01:13 C-Reactive Protein 3.0 mg/L (0.0-4.9) 08/19/23 01:13 Total Protein 6.8 g/dL (6.6-8.7) 08/19/23 01:13 Albumin 3.9 g/dL (3.5-5.2) 08/19/23 01:13 Globulin 2.9 g/dL (1.3-4.6) 08/19/23 01:13 Urine Color Yellow (Yellow) 08/19/23 01:30 Urine Appearance Clear (CLEAR) 08/19/23 01:30 Urine pH 5 (5-7) 08/19/23 01:30 Ur Specific [place] 1.020 (1.005-1.030) 08/19/23 01:30 Urine Protein Neg (Negative) 08/19/23 01:30 Urine Glucose (UA) Norm (Normal) 08/19/23 01:30 Urine Ketones Negative (Negative) 08/19/23 01:30 Urine Blood Neg (Negative) 08/19/23 01:30 Urine Nitrate Negative (Negative) 08/19/23 01:30 Urine Bilirubin Neg (Negative) 08/19/23 01:30 Urine Urobilinogen Neg mg/dL (Negative) 08/19/23 01:30 Ur Leukocyte Esterase Negative (Negative) 08/19/23 01:30 Urine RBC None /hpf (0-2) 08/19/23 01:30 Urine WBC None /hpf (0-5) 08/19/23 01:30 Ur Squamous Epith Cells None /hpf (0-5) 08/19/23 01:30 Amorphous Sediment Not Reportable 08/19/23 01:30 Urine Bacteria None /hpf (NONE) 08/19/23 01:30 Urine Opiates Screen Negative ng/mL (Negative) 08/19/23 01:30 Ur Barbiturates Screen Negative ng/mL (Negative) 08/19/23 01:30 Ur Phencyclidine Scrn Negative ng/mL (Negative) 08/19/23 01:30 Ur Amphetamines Screen Negative ng/mL (Negative) 08/19/23 01:30 U Benzodiazepines Scrn Negative ng/mL (Negative) 08/19/23 01:30 Urine Cocaine Screen Negative ng/mL (Negative) 08/19/23 01:30 U Marijuana (THC) Screen Negative ng/mL (Negative) 08/19/23 01:30 All radiology interpretation(s) finalized by discharge Discharge Plan Discharge Patient Disposition: Home Clinical Impression: Constipation Condition: Stable Prescriptions: New ondansetron 8 mg tablet,disintegrating 8 mg PO .q6 PRN (Reason: nausea and vomiting) Qty: 14 0RF magnesium citrate Solution 296 ml PO ONCE Qty: 296 0RF Miralax 17 gram/dose powder 17 g PO DAILY Qty: 510 0RF Rx Instructions: Take 1-2 scoops daily for the next 3 months to keep stools soft glycerin (adult) Suppository [address] DAILY PRN (Reason: constipation) Qty: 12 0RF No Action pantoprazole [Protonix] 40 mg tablet,delayed release (DR/EC) 40 mg PO BID 42 Days Qty: 84 1RF testosterone cypionate [Depo-Testosterone] 200 mg/mL oil 200 mg SUBCUT Q7D Qty: 10 0RF doxycycline hyclate 100 mg tablet 100 mg PO BID 10 Days Qty: 20 0RF clonazepam 1 mg tablet 1 mg PO BID Qty: 60 2RF Rx Instructions: for anxiety Discharge Orders: Discharge ED (Routine); Ordered 08/19/23 Ordered By: Giuliana Owens Referrals: Estefani Rodriguez DO [Primary Care Provider] - 4-7 days Discharge Diet: Advance as tolerated Discharge Activity: Resume usual activity Patient Instructions: Constipation (ED), Abdominal Pain (ED) Activity Restrictions/Additional Instructions: Thank you for choosing [facility] for your healthcare needs today. Please realize this is an emergency room and that we are providing you with a medical screening exam and this may not be complete and all inclusive of all the testing and or work up that you may need to determine your ailment or severity of your illness. You have been screened and evaluated and felt safe for discharge. Health conditions do change or evolve sometimes and as such it is important that you follow up with your Primary Doctor to be re checked, 3-5 days is a general good time frame for follow up. You are always welcome to return to the ED for re assessment if your symptoms are worsening or you have new concerns Coding Level of Care Code ED Caddie Supervisor for Madison Aguayo
[2023-08-19 01:20] LABS: Basophils # 0.1 10^3/uL (0.0-0.1); Basophils % 0.5 %; Eosinophils # 0.6 10^3/uL (0.0-0.8); Eosinophils % 4.4 %; Hematocrit 43.4 % (37-53); Lymphocytes # 2.2 10^3/uL (0.8-4.8); Lymphocytes % 17.2 %; Mean Corpuscular Hemoglobin 31.5 pg (27-33); Mean Corpuscular Volume 89.9 fl (82-101); Mean Platelet Volume 9.5 fL (7.4-10.4); Monocytes # 1.3 10^3/uL (0.2-0.9); Monocytes % 10.1 %; Neutrophils # 8.62 10^3/uL (1.8-7.7); Neutrophils % 67.6 %; Nucleated Red Blood Cells % 0 %; Platelet Count 248 10^3/cmm (157-399); Red Blood Count 4.83 10^6/uL (3.85-5.65); White Blood Count 12.76 10^3/uL (3.29-11.43)
[2023-08-19 01:39] LABS: Alanine Aminotransferase 15 U/L (0-41); Albumin Level 3.9 g/dL (3.5-5.2); Alkaline Phosphatase 91 U/L (40-130); Anion Gap 15.9 (5-19); Aspartate Amino Transferase 13 U/L (0-40); Blood Urea Nitrogen 19 mg/dL (6-20); Calcium 8.7 mg/dL (8.5-10.5); Carbon Dioxide 20 mmol/L (22-29); Chloride 105 mmol/L (98-107); Creatinine Clr Calc Pharmacy 99.6338; Globulin 2.9 g/dL (1.3-4.6); Glomerular Filtration Rate 88.3 mL/min (90-130); Glucose 141 mg/dL (65-115); Osmolality Calculated 289 mOsm/kg (285-295); Potassium 3.9 mmol/L (3.5-5.1); Sodium 137 mmol/L (136-145); Total Bilirubin 0.6 mg/dL (0.15-1.2); Total Protein 6.8 g/dL (6.6-8.7)
[2023-08-19 01:40] LABS: Lactic Sepsis W/Reflex 0.7 mmol/L (0.5-2.2)
--- NOTE | 2023-08-19 01:44 | CTR_ITS ---
PROCEDURE INFORMATION: Exam: CT Abdomen And Pelvis With Contrast Exam date and time: 08/19/2023 1:52 AM Age: 52 years old Clinical indication: Abdominal pain; Prior surgery; Surgery date: 6+ months; Surgery type: Spine TECHNIQUE: Imaging protocol: Computed tomography of the abdomen and pelvis with contrast. Radiation optimization: All CT scans at this facility use at least one of these dose optimization techniques: automated exposure control; mA and/or kV adjustment per patient size (includes targeted exams where dose is matched to clinical indication); or iterative reconstruction. Contrast material: OMNI 350; Contrast volume: 100 ml; Contrast route: INTRAVENOUS (IV); COMPARISON: CT abdomen pelvis w con* [id number] 01/02/2023 5:43 PM RADIATION DOSE METRICS: Total DLP (mGy-cm): 408.1 FINDINGS: Lungs: Lung bases are clear as visualized. Heart: Base of heart is unremarkable as visualized. Liver: Pseudo lesion of the falciform ligament. Simple hepatic cysts at the caudate lobe. Gallbladder and bile ducts: Normal. No calcified stones. No ductal dilation. Pancreas: Normal. No ductal dilation. Spleen: Punctate granuloma of the spleen. Adrenal glands: Normal. No mass. Kidneys and ureters: Chronic atrophic appearance of the left kidney, unchanged from prior comparison of cross-sectional imaging. Compensatory hypertrophy of the right kidney. Stomach and bowel: Moderate colonic stool burden. Prominent loop of small bowel in the left upper quadrant, short-segment, reaching up to 3.5 cm. No significant associated wall thickening, inflammatory change, mass or lesion, mucosal enhancement. Appendix: No evidence of appendicitis. Intraperitoneal space: Unremarkable. No free air. No significant fluid collection. Vasculature: Scattered atherosclerotic calcifications of the lower abdominal aorta. Lymph nodes: Unremarkable. No enlarged lymph nodes. Urinary bladder: Bladder is distended with symmetric wall thickening, similar to prior comparisons. Reproductive: Unremarkable as visualized. Bones/joints: Posterior spinal fusion hardware and laminectomy changes at L4 through S1. No evidence for acute surgical complication. Soft tissues: Left gluteal cutaneous granuloma. CT/CT abdomen pelvis w con* [id number] IMPRESSION: 1. Local ileus within the left upper quadrant. 2. Circumferential wall thickening of the urinary bladder which is similar to prior comparisons. If there is concern for cystitis, recommend correlation with laboratory findings. 3. Otherwise, unchanged nonacute findings as above.
[2023-08-19 01:47] VITALS: BP 126/82; PULSE 64; RESP 16; O2SAT 94
[2023-08-19 01:47] LABS: Amphetamines Screen Urine Negative (Negative); Barbiturates Screen Urine Negative (Negative); Benzodiazepines Screen Urine Negative (Negative); Cocaine Screen Urine Negative (Negative); Opiate Screen Urine Negative (Negative); PCP Screen Urine Negative (Negative); THC Screen Urine Negative (Negative)
[2023-08-19 01:49] LABS: Add Urine Culture? No; Bilirubin Urine Neg (Negative); Blood Urine Neg (Negative); Glucose Urine UA Norm (Normal); Ketones Urine Negative (Negative); Leukocyte Esterase Urine Negative (Negative); Nitrate Urine Negative (Negative); Protein Urine Neg (Negative); Urine Appearance Clear (CLEAR); Urine Color Yellow (Yellow); Urobilinogen Urine Neg (Negative); pH Urine 5 (5-7)
[2023-08-19] MEDS: iohexol 350 mg/mL 500 mL Btl (per mL) IV (01:54)
[2023-08-19 02:35] VITALS: BP 112/72; PULSE 62; O2SAT 92
[2023-08-19 04:20] VITALS: PULSE 73; O2SAT 95
== END 2023-08-19 04:22 | disposition home or self-care (01) ==
PROVIDERS: Emergency Provider Emergency Medicine; PCP Family Medicine
DX: K59.00 Constipation, unspecified (principal); Z72.0 Tobacco use
CPT/HCPCS: 74022; 74177; 80053; 80306; 81001; 83605; 85025; 86140; 87040; 99285; Q9967

== ENCOUNTER 2023-08-26 06:47 | Outpatient (CLI) | payer BC, MEDICAID, SELFPAY ==
--- NOTE | 2023-08-26 06:15 | US_ITS ---
WS: [id number] RIGHT UPPER QUADRANT ULTRASOUND HISTORY: abdominal pain COMPARISON: None available. Liver: 15.0 cm in length. Normal size liver and echogenicity. No bile duct dilatation or mass. Portal Vein: Normal hepatopetal flow with monophasic waveform. Gallbladder: Normally distended gallbladder with no stones or wall thickening. CBD: 0.3 cm Pancreas: Normal size and echogenicity. Right kidney: 11.9 cm in length. Normal size and echogenicity. No hydronephrosis or mass. Aorta and IVC: Unremarkable abdominal aorta and IVC. No ascites. US/US gall bladder [id number] IMPRESSION: Normal right upper quadrant ultrasound.
== END 2023-08-26 06:48 | disposition home or self-care (01) ==
PROVIDERS: PCP Family Medicine; Visit Provider Surgery
DX: R10.9 Unspecified abdominal pain (principal)
CPT/HCPCS: 76705

== ENCOUNTER 2023-09-09 13:11 | Outpatient (CLI) | payer BC, MEDICAID, SELFPAY ==
[2023-09-09 13:25] VITALS: PULSE 83; RESP 18; O2SAT 97
[2023-09-09] MEDS: albuterol 2.5 mg/3 mL Neb INHALATION (13:25)
[2023-09-09 13:30] VITALS: PULSE 93
== END 2023-09-09 13:12 | disposition home or self-care (01) ==
PROVIDERS: PCP Family Medicine; Visit Provider Family Medicine
DX: J43.9 Emphysema, unspecified (principal)
CPT/HCPCS: 94060; J7613

== ENCOUNTER 2023-09-24 08:26 | Day surgery (SDC) | payer BC, MEDICAID, SELFPAY ==
[2023-09-24 08:44] VITALS: BMI 22.3
[2023-09-24 08:45] VITALS: BP 107/85; PULSE 97; RESP 18; TEMP 36.1; O2SAT 96
--- NOTE | 2023-09-24 08:56 | ANES.PREANE2 ---
Pre-Anesthetic Assessment Height/Weight: Height 1.8 m Weight 72.575 kg Temp Pulse Resp BP Pulse Ox O2 Del Method 97 F L 97 18 107/85 96 Room Air 09/24/23 08:45 09/24/23 08:45 09/24/23 08:45 09/24/23 08:45 09/24/23 08:45 09/24/23 08:45 Operation Date: 09/24/23 09:30 Proposed Procedures p EGD Dilation W/ Balloon 88085, 44271, G0105, K92.1, R10.13, K21.9, R13.10(Not Applicable) - Martinez Vazquez DO s Colonoscopy(Not Applicable) - Martinez Vazquez DO Was Beta Chelita taken within 24 hours: N/A Was Clonidine taken within 24 hours: N/A Last intake: Intake Last Liquid Date 09/23/23 Last Liquid Time 20:00 Last Solid Date 09/22/23 Last Solid Time 19:00 Social Alcohol and Tobacco last cig last night Exam alert, oriented x 3, clear to auscultation bilaterally and regular rate & rhythm Airway Submandibular: within normal limits Cervical ROM: within normal limits Mallampati: Class I History/ROS No significant history except as noted and No significant complaints Pulmonary Chronic Obstructive Pulmonary Disease smoker CV/HEM None reported None reported Hepatic None reported GI None reported Metabolic None reported Musc/skel None reported Neuropsych Anxiety and Depression Anesthetic Plan ASA status: 2 Anesthesia: Anesthesia Evaluation and MAC Risk of > 500 ml blood loss (7ml/kg in children): Yes, adequate IV access and fluids planned Medications/Allergies Allergies Allergy/AdvReac Type Severity Reaction Status Date / Time Alpha-Gal Allergy Unknown Verified 08/19/23 01:05 (Oubbanoye-Fqxmj-0,3-Gala Penicillins Allergy ALGY-Swell Verified 08/19/23 01:05 Lip/Tongue/Throat prednisone Allergy ADR-Gastrointestinal Verified 08/19/23 01:05 Upset influenza virus vaccine ts AdvReac ADR/ALGY-Pa Verified 08/19/23 01:05 [id number] (36 mos,up) lpitations [From Fluarix] corn Allergy Severe ALGY-Hives Uncoded 08/19/23 01:05 [facility] Anesthesia Medical History Insomnia History of Lyme disease Centrilobular emphysema Anxiety, generalized Cigarette smoker Surgical History Previous back surgery Lumbar spine with cage. Had secondary infection with bacterial spine infection. 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
[2023-09-24] MEDS: sodium chloride 0.9% 1,000 ML 30 ML IV (08:58)
--- NOTE | 2023-09-24 09:27 | PM.HP ---
Providers/Chief Complaint Primary Care Provider: Estefani Rodriguez DO Chief Complaint: K92.1, R10.13, K21.9, R13.10 History of Present Illness Tyrell Paniagua is a 52 year old male Review of Systems General: Reports: 10 or more systems reviewed and unremarkable except in HPI and below Medications/Allergies Allergies Allergy/AdvReac Type Severity Reaction Status Date / Time Alpha-Gal Allergy Unknown Verified 08/19/23 01:05 (Pldvbwnwz-Tnohf-0,3-Gala Penicillins Allergy ALGY-Swell Verified 08/19/23 01:05 Lip/Tongue/Throat prednisone Allergy ADR-Gastrointestinal Verified 08/19/23 01:05 Upset influenza virus vaccine ts AdvReac ADR/ALGY-Pa Verified 08/19/23 01:05 [id number] (36 mos,up) lpitations [From Fluarix] corn Allergy Severe ALGY-Hives Uncoded 08/19/23 01:05 PFSH Acute PFSH: Medical History Insomnia History of Lyme disease Centrilobular emphysema Anxiety, generalized Cigarette smoker Surgical History Previous back surgery Lumbar spine with cage. Had secondary infection with bacterial spine infection. 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 Pets and animals: Yes Do you think of yourself as: Straight/Heterosexual Current gender identity: Male Vitals/I&O/Wt Last Vital Signs Temp 97 F L 09/24/23 08:45 Pulse 97 09/24/23 08:45 Resp 18 09/24/23 08:45 BP 107/85 09/24/23 08:45 Pulse Ox 96 09/24/23 08:45 O2 Del Method Room Air 09/24/23 08:45 Weight last 48 hrs Weight 160 lb A&P Assessment and plan (1) Dysphagia: (2) Abdominal pain: (3) GERD (gastroesophageal reflux disease): (4) Hematochezia: Plan EGD with possible balloon dilation Colonoscopy Attestations Medical Necessity Statement*: Home Coding Level of Care Code Acute Code for Chg Fwd Diagnoses Dysphagia R13.10 Abdominal pain R10.9 GERD (gastroesophageal reflux disease) K21.9 Hematochezia K92.1
[2023-09-24 09:55] VITALS: BP 91/63; PULSE 63; RESP 18; TEMP 36.1; O2SAT 95
[2023-09-24 10:07] VITALS: BP 100/67; PULSE 64; RESP 18; O2SAT 93
[2023-09-24 10:22] VITALS: BP 112/72; PULSE 65; RESP 18; O2SAT 93
--- NOTE | 2023-09-24 15:40 | ANE.PACU2 ---
Inpatient post-anesthesia follow up: Airway intact: Yes Vital signs: Temperature 97 F Pulse Rate 65 Respiratory Rate 18 Blood Pressure 112/72 Pulse Oximetry 93 Oxygen Delivery Me thod Room Air Oxygen Flow Rate Fraction of Inspir ed Oxygen Hydration adequate: Yes Nausea and vomiting: No Pain level: 2 Mental status: Baseline
== END 2023-09-24 10:45 | disposition home or self-care (01) ==
PROVIDERS: PCP Family Medicine; Visit Provider Surgery
PROC: 0DJD8ZZ Inspection of Lower Intestinal Tract, Via Natural or Artificial Opening Endoscopic (ICD-10-PCS; CPT 45378; 2023-09-24 09:30)
DX: K92.1 Melena (principal); K21.9 Gastro-esophageal reflux disease without esophagitis; K22.2 Esophageal obstruction; K29.80 Duodenitis without bleeding; K29.50 Unspecified chronic gastritis without bleeding; K21.00 Gastro-esophageal reflux disease with esophagitis, without bleeding; D12.5 Benign neoplasm of sigmoid colon; F41.1 Generalized anxiety disorder; F17.210 Nicotine dependence, cigarettes, uncomplicated
CPT/HCPCS: 43239; 43249; 45385; 88305; J2250; J3010; J7030

== ENCOUNTER 2023-10-04 15:54 | Emergency (ER) | payer BC, MEDICAID, SELFPAY ==
[2023-10-04 16:01] VITALS: BP 131/77; PULSE 78; RESP 17; TEMP 36.8; O2SAT 98; BMI 20.9
--- NOTE | 2023-10-04 16:25 | XRR_ITS ---
PROCEDURE INFORMATION: Exam: XR Chest Exam date and time: 10/04/2023 4:34 PM Age: 52 years old Clinical indication: Chest pressure; Patient HX: PT is reporting confusion, slurred speech, fatigue, chest pain when turning head since he had a colonoscopy a few weeks ago. PT reports also having multiple tick bites over the last few months. PT emphasizes the confusion and reports he's also losing weight. ; Additional info: Cp TECHNIQUE: Imaging protocol: Radiologic exam of the chest. Views: 1 view. COMPARISON: CT lung screening [id number] 07/07/2023 8:24 AM FINDINGS: Lungs: Emphysematous changes. No focal lung consolidation. Pleural spaces: No pleural effusion. No pneumothorax. Heart/Mediastinum: No cardiomegaly. Bones/joints: No acute findings. XR/XR chest 1V portable [id number] IMPRESSION: No acute chest findings.
--- NOTE | 2023-10-04 16:25 | CTR_ITS ---
PROCEDURE INFORMATION: Exam: CT Head Without Contrast Exam date and time: 10/04/2023 4:41 PM Age: 52 years old Clinical indication: Other: Confusion TECHNIQUE: Imaging protocol: Computed tomography of the head without contrast. Radiation optimization: All CT scans at this facility use at least one of these dose optimization techniques: automated exposure control; mA and/or kV adjustment per patient size (includes targeted exams where dose is matched to clinical indication); or iterative reconstruction. COMPARISON: CT head wo con* [id number] 05/06/2022 8:48 PM RADIATION DOSE METRICS: Total DLP (mGy-cm): 1033.18 FINDINGS: Brain: No hemorrhage. Auguste-white matter differentiation is maintained. Cerebral ventricles: No ventriculomegaly. Paranasal sinuses: Visualized sinuses are grossly clear with minimal mucosal thickening and/or retention cyst formation. Mastoid air cells: No mastoid effusion. Bones: Unremarkable. No acute fracture. Soft tissues: No acute findings. CT/CT head wo con* [id number] IMPRESSION: No acute intracranial abnormality.
--- NOTE | 2023-10-04 16:25 | ECG_ITS ---
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 Measurements Intervals [place] Rate: 82 P: 84 UT: 146 QRS: 74 QRSD: 96 T: 69 QT: 366 QTc: 429 Interpretive Statements SINUS RHYTHM INDETERMINATE AXIS Compared to ECG 05/06/2022 20:02:37 Indeterminate axis now present Sinus bradycardia no longer present Incomplete right bundle-branch block no longer present Electronically Signed On 10-05-2023 9:57:22 CDT by Michel West M.D. [email or web address]
--- NOTE | 2023-10-04 16:28 | W.ED.CHESTPA ---
HPI - Chest Pain General: Chief Complaint: Chest Pain Stated Complaint: pinching chest, confusion, neck pain, weakness Time Seen by Provider: 10/04/23 16:14 Source: patient Mode of arrival: ambulatory Limitations: no limitations History of Present Illness: Patient is a 52-year-old male presenting to the emergency department complaining of confusion and chest pains for the past 10 days. Patient states his symptoms began after undergoing a colonoscopy, of which was ultimately unremarkable. Patient states he has been pulling multiple ticks off of him lately, and reports a history of Lyme and ehrlichiosis that have caused him neurological issues in the past. He states that the symptoms feel similar to then. Spouse in the room also confirms that he has been acting confused and just not himself. Patient states he is also currently weaning off of benzodiazepines. The pain in his chest is noted to be a pinching to his left chest and is worsened with lateral rotation of his neck. He denies any recent injuries. He denies any past medical history of cardiac or pulmonary issues. He does report a history of GERD and takes pantoprazole for this. Patient does not report a history of anxiety though does appear very anxious on examination. He has additionally been reporting some shortness of breath and tremors. No other symptoms to report at this time. Has not taken anything for any of his symptoms to this point. MD complaint: chest pain Onset (ago): day(s) (10) Timing of current episode: episodic Prior episodes: No Pain location: left chest Pain radiation: neck Quality: other (Pinching) Associated symptoms: Reports dyspnea; Deny abdominal pain, fever(s), nausea, palpitations or vomiting Review of Systems General: Reports: 10 or more systems reviewed and unremarkable except in HPI and below Const: Denies: fever(s), chills or fatigue Eyes: Denies: change in vision ENMT: Denies: throat pain, ear or mastoid pain or nasal discharge Card: Reports: chest pain; Denies: palpitations, swelling of feet/ankles or lightheadedness Resp: Reports: dyspnea; Denies: productive cough or wheezing GI: Denies: abdominal pain, nausea, vomiting, diarrhea or constipation : Denies: flank pain, difficulty urinating, dysuria or urinary frequency Musc: Reports: neck pain; Denies: back pain or joint pain Skin/Breast: Reports: other (Tick bite); Denies: rash Neuro: Reports: confusion, behavioral changes and other (Tremors); Denies: headache(s), numbness in extremities, weakness in extremities, difficulty walking, frequent falls, dizziness, vertigo, Slurred speech present or seizure-like activity PFSH ED PFSH: Medical History Insomnia History of Lyme disease Centrilobular emphysema Anxiety, generalized Cigarette smoker Surgical History Previous back surgery Lumbar spine with cage. Had secondary infection with bacterial spine infection. 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 Pets and animals: Yes Do you think of yourself as: Straight/Heterosexual Current gender identity: Male Physical Exam Const: COMMON NORMALS: no acute distress, patient oriented x3 and no limitations GENERAL APPEARANCE: cooperative, well developed, anxious and disheveled ORIENTATION/CONSCIOUSNESS: Yes awake, Yes oriented to person, Yes oriented to place and Yes oriented to time HENMT: COMMON NORMALS: normocephalic, atraumatic and hearing grossly normal bilaterally HEAD & SCALP: normocephalic and atraumatic Eye: COMMON NORMALS: Equal, round and reactive pupils present, EOMs intact bilaterally and conjunctivae normal CONJUNCTIVA: Yes conjunctivae normal PUPIL: Yes Equal, round and reactive pupils present Neck/C-Spine: COMMON NORMALS: full ROM, supple and no JVD Chest: COMMONS NORMALS: normal inspection of the chest and normal palpation of entire chest wall Resp: COMMON NORMALS: normal respiratory effort, No retractions, No use of accessory muscles and clear to auscultation bilaterally AUSCULTATION: clear to auscultation bilaterally Cardio: COMMON NORMALS: no JVD, regular rate, regular rhythm, No clicks present (Cardio), No murmurs present (Cardio) and No rub (Cardio) RATE: regular rate RHYTHM: regular rhythm GI: COMMON NORMALS: Normal to inspection, nondistended, normoactive bowel sounds present, Soft to palpation and non-tender AUSCULTATION: Yes normoactive bowel sounds PALPATION: Yes Soft to palpation RECTAL EXAM: Yes deferred Back/Pelvis: COMMON NORMALS: thoracic and lumbar spine normal to inspection, no thoracic nor lumbar tenderness and thoraco-lumbar ROM normal Extremity: COMMON NORMALS: normal to inspection, full ROM, capillary refill normal, no joint enlargement and no pedal edema Neuro: COMMON NORMALS: patient oriented x3, CN's II-XII intact bilaterally, moves all extremities, no focal motor deficits and no sensory deficits noted SENSORIUM/ORIENTATION: Yes oriented to person, Yes oriented to place and Yes oriented to time MOTOR EXAM: 5/5 motor strength present throughout, Pronator motor function not present, no tremor noted and no asterixis Psych: COMMON NORMALS: mental status grossly normal and Normal thought process present MOOD & AFFECT: Yes anxious THOUGHT PROCESS: Normal thought process present Skin: NARRATIVE SKIN EXAM: Multiple scattered tick bite lesions Course Vital Signs: Vital signs: Vital Signs Temperature 98.2 F 10/04/23 16:01 Pulse Rate 60 10/04/23 18:44 Respiratory Rate 17 10/04/23 16:01 Blood Pressure 120/73 10/04/23 18:44 Pulse Oximetry 95 10/04/23 18:44 Oxygen Delivery Me thod Room Air 10/04/23 18:44 MDM - Chest Pain Medical Decision Making Patient presented for multiple symptoms, stating that he thought they were due to tick bites. His physical examination, including neurological examination, was normal although he did appear anxious on exam. Reported symptoms included confusion, dizziness, and chest pain. Because of this I ordered a chest x-ray which was negative. Additionally an EKG did not demonstrate any acute findings and was normal sinus rhythm. Head CT did not demonstrate any acute intracranial abnormalities. All of his blood work was unremarkable, and UA did not demonstrate any signs of infection. Because of his negative workup, will have him follow-up with his primary care provider for any further evaluation. He did report a history of recently going cold turkey off benzodiazepines, and this etiology could explain his symptoms. However he is given meclizine for as needed dizziness, and strict return precautions are given. This patient's case is discussed with supervising ED physician, Dr. Dee, who agrees with disposition. Lab Data 10/04/23 16:21 10/04/23 16:21 Radiology Impressions Chest X-Ray 10/04/23 16:25 IMPRESSION: No acute chest findings. Head CT 10/04/23 16:25 IMPRESSION: No acute intracranial abnormality. Laboratory Results WBC 7.89 10^3/uL (3.29-11.43) 10/04/23 16: RBC 4.97 10^6/uL (3.85-5.65) 10/04/23 16:21 Hgb 15.70 g/dL (11.27-16.99) 10/04/23 16:21 Hct 45.4 % (37-53) 10/04/23 16:21 MCV 91.3 fl (82-101) 10/04/23 16:21 MCH 31.6 pg (27-33) 10/04/23 16:21 MCHC 34.6 g/dL (30-55) 10/04/23 16:21 RDW 12.0 % (12.1-15.1) L 10/04/23 16:21 Plt Count 258 10^3/cmm (157-399) 10/04/23 16:21 MPV 9.8 fL (7.4-10.4) 10/04/23 16:21 Neut % (Auto) 56.6 % 10/04/23 16:21 Lymph % (Auto) 24.2 % 10/04/23 16:21 [place] % (Auto) 13.9 % 10/04/23 16:21 Eos % (Auto) 4.2 % 10/04/23 16:21 Baso % (Auto) 0.8 % 10/04/23 16:21 Neut # (Auto) 4.47 10^3/uL (1.8-7.7) 10/04/23 16:21 Lymph # (Auto) 1.9 10^3/uL (0.8-4.8) 10/04/23 16:21 [place] # (Auto) 1.1 10^3/uL (0.2-0.9) H 10/04/23 16:21 Eos # (Auto) 0.3 10^3/uL (0.0-0.8) 10/04/23 16:21 Baso # (Auto) 0.1 10^3/uL (0.0-0.1) 10/04/23 16:21 Nucleated RBC % (auto) 0 % 10/04/23 16:21 Nucleated RBCs # 0.0 /100WBC 10/04/23 16:21 Sodium 140 mmol/L (136-145) 10/04/23 16:21 Potassium 4.1 mmol/L (3.5-5.1) 10/04/23 16:21 Chloride 106 mmol/L (98-107) 10/04/23 16:21 Carbon Dioxide 22 mmol/L (22-29) 10/04/23 16:21 Anion Gap 16.1 (5-19) 10/04/23 16:21 BUN 13 mg/dL (6-20) 10/04/23 16:21 Creatinine 1.1 mg/dL (0.7-1.2) 10/04/23 16:21 GFR Calculation 70.0 mL/min (90-130) L 10/04/23 16:21 Glucose 96 mg/dL (65-115) 10/04/23 16:21 Calculated Osmolality 290 mOsm/kg (285-295) 10/04/23 16:21 Calcium 8.9 mg/dL (8.5-10.5) 10/04/23 16:21 Total Bilirubin 0.6 mg/dL (0.15-1.2) 10/04/23 16:21 AST 12 U/L (0-40) 10/04/23 16:21 ALT 12 U/L (0-41) 10/04/23 16:21 Alkaline Phosphatase 94 U/L (40-130) 10/04/23 16:21 Total Protein 7.2 g/dL (6.6-8.7) 10/04/23 16:21 Albumin 4.2 g/dL (3.5-5.2) 10/04/23 16:21 Globulin 3.0 g/dL (1.3-4.6) 10/04/23 16:21 Urine Color Yellow (Yellow) 10/04/23 18:32 Urine Appearance Clear (CLEAR) 10/04/23 18:32 Urine pH 5 (5-7) 10/04/23 18:32 Ur Specific [place] 1.005 (1.005-1.030) 10/04/23 18:32 Urine Protein Neg (Negative) 10/04/23 18:32 Urine Glucose (UA) Norm (Normal) 10/04/23 18:32 Urine Ketones Negative (Negative) 10/04/23 18:32 Urine Blood Neg (Negative) 10/04/23 18:32 Urine Nitrate Negative (Negative) 10/04/23 18:32 Urine Bilirubin Neg (Negative) 10/04/23 18:32 Urine Urobilinogen Neg mg/dL (Negative) 10/04/23 18:32 Ur Leukocyte Esterase Negative (Negative) 10/04/23 18:32 All radiology interpretation(s) finalized by discharge Discharge Plan Discharge Patient Disposition: Home Clinical Impression: Musculoskeletal chest pain, Dizziness Condition: Stable Prescriptions: New meclizine 50 mg tablet 50 mg PO DAILY PRN (Reason: dizziness) Qty: 30 0RF No Action pantoprazole 40 mg tablet,delayed release (DR/EC) 40 mg PO BID 42 Days Qty: 84 1RF Discharge Orders: Discharge ED (Routine); Ordered 10/04/23 Ordered By: Nickolas Hunter Referrals: Estefani Rodriguez DO [Primary Care Provider] - Discharge Diet: Usual diet Discharge Activity: Increase activity as tolerated Patient Instructions: Tick Bite (ED), Pain Management Activity Restrictions/Additional Instructions: Tick panel currently pending. Take ibuprofen or Tylenol at home for aches and pains. Increase your fluid intake. Follow-up with primary care as discussed. Return with any new or worsening. Coding Level of Care Code ED Allergist Immunologist for Madison Aguayo
[2023-10-04 16:33] LABS: Basophils # 0.1 10^3/uL (0.0-0.1); Basophils % 0.8 %; Eosinophils # 0.3 10^3/uL (0.0-0.8); Eosinophils % 4.2 %; Hematocrit 45.4 % (37-53); Lymphocytes # 1.9 10^3/uL (0.8-4.8); Lymphocytes % 24.2 %; Mean Corpuscular HGB Conc 34.6 g/dL (30-55); Mean Corpuscular Hemoglobin 31.6 pg (27-33); Mean Corpuscular Volume 91.3 fl (82-101); Mean Platelet Volume 9.8 fL (7.4-10.4); Monocytes # 1.1 10^3/uL (0.2-0.9); Monocytes % 13.9 %; Neutrophils # 4.47 10^3/uL (1.8-7.7); Neutrophils % 56.6 %; Nucleated Red Blood Cells % 0 %; Platelet Count 258 10^3/cmm (157-399); Red Blood Count 4.97 10^6/uL (3.85-5.65); White Blood Count 7.89 10^3/uL (3.29-11.43)
[2023-10-04 16:44] LABS: Alanine Aminotransferase 12 U/L (0-41); Albumin Level 4.2 g/dL (3.5-5.2); Alkaline Phosphatase 94 U/L (40-130); Anion Gap 16.1 (5-19); Aspartate Amino Transferase 12 U/L (0-40); Blood Urea Nitrogen 13 mg/dL (6-20); Calcium 8.9 mg/dL (8.5-10.5); Carbon Dioxide 22 mmol/L (22-29); Chloride 106 mmol/L (98-107); Creatinine Clr Calc Pharmacy 82.0379; Glucose 96 mg/dL (65-115); Osmolality Calculated 290 mOsm/kg (285-295); Potassium 4.1 mmol/L (3.5-5.1); Sodium 140 mmol/L (136-145); Total Bilirubin 0.6 mg/dL (0.15-1.2); Total Protein 7.2 g/dL (6.6-8.7)
[2023-10-04] MEDS: sodium chloride 0.9% 1,000 ML 999 ML IV (17:02)
[2023-10-04] MEDS: ketorolac 60 mg/2 mL INJ 30 MG IVP (17:03)
[2023-10-04 17:30] VITALS: BP 123/70; PULSE 57; O2SAT 97
[2023-10-04 18:43] LABS: Add Urine Microscopic? NO; Charge for UA Resulting for Rev
[2023-10-04 18:44] VITALS: BP 120/73; PULSE 60; O2SAT 95
[2023-10-04 18:45] LABS: Bilirubin Urine Neg (Negative); Blood Urine Neg (Negative); Glucose Urine UA Norm (Normal); Ketones Urine Negative (Negative); Leukocyte Esterase Urine Negative (Negative); Nitrate Urine Negative (Negative); Protein Urine Neg (Negative); Specific Gravity, Urine 1.005 (1.005-1.030); Urine Appearance Clear (CLEAR); Urine Color Yellow (Yellow); Urobilinogen Urine Neg (Negative); pH Urine 5 (5-7)
[2023-10-04 19:03] VITALS: BP 116/81; PULSE 79; RESP 17; O2SAT 99
[2023-10-07 11:54] LABS: Lyme AB Screen <0.90 index
== END 2023-10-04 19:03 | disposition home or self-care (01) ==
PROVIDERS: Emergency Provider Physician Assistant; PCP Family Medicine
DX: R07.89 Other chest pain (principal); R42 Dizziness and giddiness; Z72.0 Tobacco use; J43.2 Centrilobular emphysema
CPT/HCPCS: 70450; 71045; 80053; 81003; 85025; 93005; 96361; 96374; 99285; J1885; J7030

== ENCOUNTER 2023-10-09 07:06 | Outpatient (CLI) | payer BC, MEDICAID, SELFPAY ==
--- NOTE | 2023-10-09 08:00 | NM_ITS ---
WS: [id number] NUCLEAR MEDICINE HIDA SCAN WITH GALLBLADDER EJECTION FRACTION HISTORY: Epigastric Pain COMPARISON: Gallbladder ultrasound 08/26/2023 TECHNIQUE: The patient was intravenously injected with 7.5 mCi of TC99m Mebrofenin. Immediate imaging over the right upper quadrant was followed by 5 minute image and additional images for a total of 60 minutes. Normal uptake of radiotracer throughout the liver. Activity identified in the gallbladder at 10 minutes and well distended by 60 minutes. Activity in the proximal small bowel was seen by 15 minutes. Good washout of the radiotracer from the liver by 60 minutes. The patient then drank 8 ounces of Ensure Plus. Ejection fraction at 60 minutes was 47%. Normal GB ej ection fraction is 35-75%. Post fatty meal symptoms, substituted fatty meal with Nick mL due to allergy.: None. NM/NM hepatobiliary w phar* [id number] IMPRESSION: 1. Normal HIDA scan. 2. Normal gallbladder ejection fraction.
== END 2023-10-09 07:07 | disposition home or self-care (01) ==
PROVIDERS: PCP Family Medicine; Visit Provider Surgery
DX: R10.13 Epigastric pain (principal)
CPT/HCPCS: 78227; A9537

== ENCOUNTER → 2024-02-02 11:19 | Outpatient (BNVA) | payer BC, MEDICAID, SELFPAY | PROVIDERS: PCP Family Medicine; Visit Provider Nurse Practitioner | DX: E55.9 Vitamin D deficiency, unspecified (principal); F41.1 Generalized anxiety disorder; R53.82 Chronic fatigue, unspecified; E34.9 Endocrine disorder, unspecified | CPT/HCPCS: 80053; 82306; 82607; 84403; 85025; 85651; 86038; 86140; 86431 ==

== ENCOUNTER → 2024-03-05 15:40 | Outpatient (BNVA) | payer BC, MEDICAID, SELFPAY | PROVIDERS: PCP Nurse Practitioner; Visit Provider Clinical Nurse Specialist Adult Health | DX: R30.0 Dysuria (principal) | CPT/HCPCS: 81000 ==

== ENCOUNTER 2024-04-01 19:30 | Emergency (ER) | payer BC, MEDICAID, SELFPAY ==
[2024-04-01 19:38] VITALS: BP 101/64; PULSE 68; TEMP 36.4; O2SAT 97; BMI 21.7
[2024-04-01 21:00] VITALS: BP 140/80; PULSE 89; O2SAT 92
--- NOTE | 2024-04-01 21:09 | CTR_ITS ---
PROCEDURE INFORMATION: Exam: CT Lumbar Spine Without Contrast Exam date and time: 04/01/2024 9:34 PM Age: 53 years old Clinical indication: Low back pain; Prior surgery; Surgery date: 6+ months; Surgery type: Lumbar TECHNIQUE: Imaging protocol: Computed tomography of the lumbar spine without contrast. Radiation optimization: All CT scans at this facility use at least one of these dose optimization techniques: automated exposure control; mA and/or kV adjustment per patient size (includes targeted exams where dose is matched to clinical indication); or iterative reconstruction. COMPARISON: CT abdomen pelvis w con* [id number] 08/19/2023 1:52 AM RADIATION DOSE METRICS: Total DLP (mGy-cm): 536.75 FINDINGS: Bones/joints: There are mild degenerative changes of the sacroiliac joints. Post posterior decompression and instrumentation at L4-S1. There is an L5-S1 disc cage. No hardware complications. Mild anterolisthesis of L5 over S1. No acute fracture. No large collections. Mild degenerative disease at L3-L4 but no significant bony canal stenosis or neural foraminal narrowing. Liver: There is a 1 cm hypodense lesion in the caudate lobe, stable when compared to 01/02/2023. Spleen: There are multiple calcified granulomas of the spleen. Kidneys and ureters: Atrophic left kidney. There are multiple bilateral renal collecting system calcifications. There is no evidence of hydronephrosis. Vasculature: Calcified atheromas of the visualized arteries. Soft tissues: Unremarkable. CT/CT lumbar spine wo con* [id number] IMPRESSION: 1. Post posterior decompression and instrumentation at L4-S1 with no hardware complications. 2. No significant bony canal stenosis.
[2024-04-01 22:30] VITALS: BP 127/74; PULSE 64; O2SAT 97
[2024-04-01] MEDS: orphenadrine 30 mg/mL Inj 2 mL 60 MG IM (22:41)
[2024-04-01] MEDS: ketorolac 60 mg/2 mL INJ IM (22:42)
[2024-04-01] MEDS: dexamethasone 10 mg/mL INJ IM (22:42)
--- NOTE | 2024-04-01 22:52 | W.ED.BACK ---
HPI - Back Pain/Injury General: Chief Complaint: Back Pain/Injury Stated Complaint: sudden Back pain has cage heard pop Time Seen by Provider: 04/01/24 19:50 Source: patient Mode of arrival: ambulatory Limitations: no limitations History of Present Illness: Patient is a 53-year-old male with past medical history of previous lumbar fusion with cage and subsequent osteomyelitis who presents the emergency department complaining of lower back pain beginning suddenly yesterday. Does not report any inciting event such as trauma, but does report. A sudden pop in his back and he feels like something is out of place. Has still been able to walk, but states this causes a lot of pain. He has not been taking anything for the pain. Does note that the pain radiates down both legs. He is not reporting any bowel or bladder incontinence or distal paralysis. Does not report any fevers, trauma, unexplained weight loss, neurological symptoms, IVDU, steroid use, or history of cancer. MD elicited complaint: back pain Pertinent past history: prior back pain Onset (ago): day(s) Timing: constant Severity: severe Similar Symptoms Previously: Yes Location: lumbar spine, right lower back and left lower back Radiation: left leg below the knee and right leg below the knee Exacerbating factors: movement Relieving factors: none Context: turning/twisting Associated symptoms: Deny abdominal pain, difficulty walking, fecal incontinence, fever(s) or syncope Related Data Previous Rx's Medication Instructions Recorded fluconazole 100 mg tablet 100 mg PO Q72H #3 tabs 03/05/24 (Diflucan) Allergies Allergy/AdvReac Type Severity Reaction Status Date / Time Alpha-Gal Allergy Unknown Verified 04/01/24 19:42 ([id number]-Wwkqa-8,3-Gala Penicillins Allergy ALGY-Swell Verified 04/01/24 19:42 Lip/Tongue/Throat prednisone Allergy ADR-Gastrointestinal Verified 04/01/24 19:42 Upset influenza virus vaccine ts AdvReac ADR/ALGY-Pa Verified 04/01/24 19:42 [id number] (36 mos,up) lpitations [From Fluarix] corn Allergy Severe ALGY-Hives Uncoded 04/01/24 19:42 Review of Systems General: Reports: 10 or more systems reviewed and unremarkable except in HPI and below Const: Reports: other (denies trauma); Denies: fever(s), change in weight or night sweats Card: Denies: chest pain, lightheadedness or syncope Resp: Denies: dyspnea GI: Denies: abdominal pain or fecal incontinence : Denies: urinary incontinence Musc: Reports: back pain, extremity pain and limited range of motion; Denies: neck pain Skin/Breast: Denies: rash or skin pain Neuro: Denies: headache(s), numbness in extremities, weakness in extremities, sensory changes, lack of coordination, difficulty walking, frequent falls or involuntary movements PFSH ED PFSH: Medical History Insomnia History of Lyme disease Centrilobular emphysema Anxiety, generalized Cigarette smoker Surgical History Previous back surgery Lumbar spine with cage. Had secondary infection with bacterial spine infection. 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 Pets and animals: Yes Do you think of yourself as: Straight/Heterosexual Current gender identity: Male Physical Exam Const: COMMON NORMALS: patient oriented x3, no limitations, healthy appearing and alert OTHER: Appears uncomfortable in ER bed secondary to pain Resp: COMMON NORMALS: normal respiratory effort, No retractions, No use of accessory muscles and clear to auscultation bilaterally AUSCULTATION: clear to auscultation bilaterally Cardio: COMMON NORMALS: regular rate, regular rhythm, S1 normal heart sound present and S2 normal heart sound present RATE: regular rate RHYTHM: regular rhythm HEART SOUNDS: S1 normal heart sound present and S2 normal heart sound present Back/Pelvis: OTHER: Straight leg raise positive bilaterally. Postoperative scar to midline lumbar back. Severe reproducible tenderness to palpation to the bilateral paralumbar muscles, left worse than right. No rash. Limited range of motion with lateral rotation and flexion/extension at the back secondary to the pain. No signs of trauma or any bruising. Extremity: COMMON NORMALS: normal to inspection and full ROM Neuro: COMMON NORMALS: patient oriented x3, moves all extremities, no focal motor deficits, no sensory deficits noted, deep tendon reflexes 2+ bilaterally and gait normal SENSORIUM/ORIENTATION: Yes alert OTHER: L3, L4, L5, and S1 nerve sensations intact. Normal knee jerk and ankle jerk reflexes. Skin: COMMON NORMALS: no rashes or lesions noted GENERAL SKIN EXAM: no rashes or lesions noted Course Vital Signs: Vital signs: Vital Signs Temperature 97.6 F 04/01/24 19:38 Pulse Rate 89 04/01/24 21:00 Respiratory Rate 18 04/02/24 00:00 Blood Pressure 140/80 04/01/24 21:00 Pulse Oximetry 96 04/02/24 00:00 Oxygen Delivery Me thod Room Air 04/01/24 19:38 MDM - Back Pain/Injury Medical Decision Making Patient presenting with acute onset low back pain, history of lumbar fusion with cage placed. CT showing that this instrumentation was intact with no complications. No other new acute findings. Tried shots of Toradol, Decadron, and Norflex first to treat for any musculoskeletal etiology, did not report much improvement. Will give him 1 Dilaudid for his pain, and refer him to Ortho/spine due to his intractable pain and history of surgery. He also had concerning history of osteomyelitis and I believe would warrant following up with a specialist anyways. Vitals have been stable, will be discharged home with strict return precautions. Labs Radiology Impressions Lumbar Spine CT 04/01/24 21:09 IMPRESSION: 1. Post posterior decompression and instrumentation at L4-S1 with no hardware complications. 2. No significant bony canal stenosis. All radiology interpretation(s) finalized by discharge Discharge Plan Discharge Patient Disposition: Home Clinical Impression: Strain of lumbar region Qualifiers: Encounter type: initial encounter Qualified Code(s): S39.012A - Strain of muscle, fascia and tendon of lower back, initial encounter Condition: Stable Prescriptions: No Action fluconazole [Diflucan] 100 mg tablet 100 mg PO Q72H Qty: 3 0RF Discharge Orders: Discharge ED (Routine); Ordered 04/02/24 Ordered By: Nickolas Hunter Referrals: Mara Pierce, SHERWIN [Primary Care Provider] - Patient Instructions: Low Back Strain (ED) Activity Restrictions/Additional Instructions: Follow-up with orthopedic/spine, referral is placed and awaiting call from them. Alternate ibuprofen and Tylenol at home, apply ice and heat to your low back. Gentle range of motion exercises as tolerated. Please monitor your condition closely and return to the emergency department with any new or worsening. See attached patient instructions for any further education. Coding Level of Care Code ED Charge Accounts Audit Clerk for Madison Aguayo
[2024-04-01 23:45] VITALS: BP 123/103; PULSE 73; O2SAT 97
[2024-04-02] VITALS: RESP 18; O2SAT 96
[2024-04-02 00:15] VITALS: RESP 18; O2SAT 96
[2024-04-02 00:22] VITALS: BP 118/82; PULSE 70; O2SAT 97
--- NOTE | 2024-04-02 07:25 | DCPLANNER ---
messaged ortho for er f/u
== END 2024-04-02 00:23 | disposition home or self-care (01) ==
PROVIDERS: Emergency Provider Physician Assistant; PCP Nurse Practitioner
DX: S39.012A Strain of muscle, fascia and tendon of lower back, initial encounter (principal); X58.XXXA Exposure to other specified factors, initial encounter
CPT/HCPCS: 72131; 96372; 99284; J1100; J1885; J2360

== ENCOUNTER → 2024-04-06 09:07 | Outpatient (BNVA) | payer BC, MEDICAID, SELFPAY | PROVIDERS: PCP Nurse Practitioner; Referring Provider Physician Assistant; Visit Provider Orthopaedic Surgery | DX: M54.9 Dorsalgia, unspecified (principal) | CPT/HCPCS: 72110 ==

== ENCOUNTER 2024-05-06 15:43 | Outpatient (CLI) | payer BC, MEDICAID, SELFPAY ==
--- NOTE | 2024-05-06 16:00 | MR_ITS ---
WS: [id number] MRI LUMBAR SPINE NONCONTRAST TECHNIQUE: Sagittal T1, T2 and STIR imaging. Axial T1 and T2 imaging. CLINICAL INFORMATION: back pain COMPARISON: CT 04/01/2024 FINDINGS: Mild lumbar curve. No acute compression. No high-grade central canal stenosis. Pedicle screw fixation L4-S1. Slight anterolisthesis L5 on S1. L1-L2: Mild facet arthropathy. Spinal canal and foramen are patent. L2-L3: Mild annular bulging. Slight impingement traversing L3 nerve roots bilaterally. Mild facet art hropathy. RIGHT eccentric disc bulging slightly contacts the far exiting RIGHT L2 nerve root. L3-L4: Laminectomy defects. Pedicle screw fixation. Spinal canal is patent. Foramen are patent. L4-L5: Postoperative changes pedicle screw fixation. Laminectomy defects. Spinal canal and foramen ar e patent. L5-S1: Grade 1 anterolisthesis L5 on S1.Pedicle screw fixation with interbody fusion. Spinal canal an d foramen are patent. Visualized pelvic bony structures: Normal. Paravertebral soft tissues: Normal. Partially visualized atrophic LEFT kidney. MR/MR lumbar spine wo con* [id number] IMPRESSION: 1. Prior postoperative changes L4-S1 with pedicle screw fixation and laminecto my defects. Slight anterolisthesis L5 on S1 with interbody fusion. 2. No significant central canal stenosis. 3. Mild annular bulging L2-3 with a tiny annular fissure and slight narrowing of the subarticular recess bilaterally. 4. Spinal canal and foramen are patent at the fusion levels. 5. RIGHT eccentric disc bulging L2-3 slightly encroaches on the far exiting RI GHT L2 nerve root.
== END 2024-05-06 15:44 | disposition home or self-care (01) ==
LOC: RAD 15:43
PROVIDERS: PCP Nurse Practitioner; Visit Provider Orthopaedic Surgery
DX: M51.360 Other intervertebral disc degeneration, lumbar region with discogenic back pain only (principal); Z98.1 Arthrodesis status; M96.89 Other intraoperative and postprocedural complications and disorders of the musculoskeletal system; M47.896 Other spondylosis, lumbar region; N26.1 Atrophy of kidney (terminal); R93.7 Abnormal findings on diagnostic imaging of other parts of musculoskeletal system
CPT/HCPCS: 72148

== ENCOUNTER 2024-07-18 01:15 | Emergency (ER) | payer BC, MEDICAID, SELFPAY ==
[2024-07-18 01:22] VITALS: BP 108/76; PULSE 66; RESP 18; TEMP 35.6; O2SAT 98; BMI 21.7
[2024-07-18 01:56] VITALS: BP 116/63; PULSE 68; RESP 18; O2SAT 94
--- NOTE | 2024-07-18 02:05 | CTR_ITS ---
PROCEDURE INFORMATION: Exam: CT Head Without Contrast Exam date and time: 07/18/2024 2:27 AM Age: 53 years old Clinical indication: Pain; Headache; C/O GIBBONS with dizziness; Additional info: Headache, dizziness TECHNIQUE: Imaging protocol: Computed tomography of the head without contrast. Radiation optimization: All CT scans at this facility use at least one of these dose optimization techniques: automated exposure control; mA and/or kV adjustment per patient size (includes targeted exams where dose is matched to clinical indication); or iterative reconstruction. COMPARISON: CT head wo con* [id number] 04/05/2024 8:47 PM RADIATION DOSE METRICS: Total DLP (mGy-cm): 1028.73 FINDINGS: Brain: Normal. No hemorrhage. Unremarkable white matter. No mass effect. Cerebral ventricles: No ventriculomegaly. Paranasal sinuses: Visualized sinuses are unremarkable. No fluid levels. Mastoid air cells: Visualized mastoid air cells are well aerated. Bones: Unremarkable. No acute fracture. Soft tissues: Unremarkable. CT/CT head wo con* [id number] IMPRESSION: No acute intracranial abnormality.
--- NOTE | 2024-07-18 02:05 | XRR_ITS ---
PROCEDURE INFORMATION: Exam: XR Chest Exam date and time: 07/18/2024 2:17 AM Age: 53 years old Clinical indication: Cough and fever; C/O cough with fever; Additional info: Cough fever TECHNIQUE: Imaging protocol: Radiologic exam of the chest. Views: 1 view. COMPARISON: CR (CHEST, ) 04/05/2024 8:52 PM FINDINGS: Lungs: Unremarkable. No consolidation. Pleural spaces: Unremarkable. No pleural effusion. No pneumothorax. Heart/Mediastinum: Unremarkable. No cardiomegaly. Bones/joints: Unremarkable. XR/XR chest 1V portable [id number] IMPRESSION: No acute findings.
[2024-07-18 02:29] LABS: Basophils # 0.1 10^3/uL (0.0-0.1); Basophils % 0.6 %; Eosinophils # 0.5 10^3/uL (0.0-0.8); Eosinophils % 3.6 %; Hematocrit 44.8 % (37-53); Lymphocytes # 2.5 10^3/uL (0.8-4.8); Lymphocytes % 17.8 %; Mean Corpuscular HGB Conc 33.7 g/dL (30-55); Mean Corpuscular Hemoglobin 31.5 pg (27-33); Mean Corpuscular Volume 93.3 fl (82-101); Mean Platelet Volume 10.5 fL (7.4-10.4); Monocytes # 1.3 10^3/uL (0.2-0.9); Neutrophils % 68.7 %; Nucleated Red Blood Cells % 0 %; Platelet Count 232 10^3/cmm (157-399); Red Cell Distribution Width 12.1 % (12.1-15.1); White Blood Count 14.12 10^3/uL (3.29-11.43)
[2024-07-18 02:48] LABS: Alanine Aminotransferase 17 U/L (0-41); Albumin Level 3.9 g/dL (3.5-5.2); Alkaline Phosphatase 86 U/L (40-130); Anion Gap 15.1 (5-19); Aspartate Amino Transferase 14 U/L (0-40); Blood Urea Nitrogen 28 mg/dL (6-20); Calcium 8.8 mg/dL (8.5-10.5); Carbon Dioxide 21 mmol/L (22-29); Chloride 106 mmol/L (98-107); Creatinine Clr Calc Pharmacy 100.3201; Globulin 2.8 g/dL (1.3-4.6); Glomerular Filtration Rate 87.9 mL/min (90-130); Glucose 99 mg/dL (65-115); Osmolality Calculated 292 mOsm/kg (285-295); Potassium 4.1 mmol/L (3.5-5.1); Sodium 138 mmol/L (136-145); Total Bilirubin 0.5 mg/dL (0.15-1.2); Total Protein 6.7 g/dL (6.6-8.7)
[2024-07-18 02:53] LABS: Alcohol Level < 10 mg/dL (0-10)
[2024-07-18] MEDS: prochlorperazine 10 mg/2 mL Inj IVP (02:59)
[2024-07-18] MEDS: ketorolac 30 mg/mL INJ IVP (02:59)
[2024-07-18 03:04] VITALS: BP 120/75; PULSE 68; RESP 16; O2SAT 94
--- NOTE | 2024-07-18 03:06 | ED_ITS ---
HPI - Headache 2 General: Chief Complaint: Headache Stated Complaint: head and neck pain Time Seen by Provider: 07/18/24 01:53 History of Present Illness: 53-year-old male complaining of a week o f headache, somewhat stiff neck, low- grade temperature, seeing auras, some mild confusion, some slurring of his speech intermittently. Symptoms mainly consist of headache now. He also says that he has had a cough, with congestion. Related Data Previous Rx's ?Medication ?Instructions ?Recorded fluconazole 100 mg tablet 100 mg PO Q72H #3 tabs 03/05 (Diflucan) ketorolac 10 mg tablet 10 mg PO TID PRN pain #10 ta bs 07/18/24 Allergies Allergy/AdvReac Type Severity Reaction Status Date / Time Alpha-Gal Allergy Unknown Verified 04/05/24 20:15 (Knwlkdvmj-Dusxg-1,3-Gala Penicillins Allergy ALGY-Swell Verified 04/05/24 20:15 Lip/Tongue/Throat prednisone Allergy ADR-Gastrointestinal Verified 04/05/24 20:15 Upset influenza virus vaccine ts AdvReac ADR/ALGY-Pa Verified 04/05/24 20:15 [id number] (36 mos,up) (From lpitations Fluarix) corn Allergy Severe ALGY-Hives Uncoded 04/05/24 20:15 PFSH ED 2 PFSH: Medical History Insomnia History of Lyme disease Centrilobular emphysema Anxiety, generalized Cigarette smoker Surgical History Previous back surgery Lumbar spine with cage. Had secondary infection with bacterial spine infection. 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 and animals: Yes Do you think of yourself as: Straight/Heterosexual Current gender identity: Male Physical Exam 2 Const: COMMON NORMALS: no acute distress and alert GENERAL APPEARANCE: c ooperative; not ill appearing and not frail appearing HENMT: COMMON NORMALS: normocephalic, atraumatic and Normal external nose present HEAD & SCALP: normocephalic and atraumatic FACE & SINUS: normal facial exam and face symmetric NOSE: Normal external nose present Eye: COMMON NORMALS: Equal, round and reactive pupils present and EOMs intact bilaterally PUPIL: Yes Equal, round and reactive pupils present Neck/C-Spine: COMMON NORMALS: no meningeal signs GENERAL: Yes trachea midline Chest: CHEST: Yes Symmetrical chest wall rise Resp: COMMON NORMALS: normal respiratory effort, No retractions, No use of accessory muscles and clear to auscultation bilaterally AUSCULTATION: clear to auscultation bilaterally Cardio: COMMON NORMALS: regular rate and regular rhythm RATE: regular rate RHYTHM: regular rhythm GI: COMMON NORMALS: Normal to inspection, nondistended, normoactive bowel sounds present Extremity: COMMON NORMALS: no pedal edema Neuro: ALEA COMA SCALE: document GCS findings [place] coma scale eye opening: Spontaneous Alea coma scale verbal response: Orientated Alea coma scale motor response: Obey commands Alea coma scale total score: 15 S ENSORIUM/ORIENTATION: Yes alert MENINGEAL SIGNS: Yes no meningeal signs and No nuccal rigidity COORDINATION/BALANCE: [id number] test normal S PEECH: speech normal SENSORY EXAM: Yes extremities (intact) MOTOR EXAM: P ronator motor function not present COORDINATION: [id number] test normal Psych: COMMON NORMALS: speech normal SPEECH: Yes normal speech Skin: COMMON NORMALS: no rashes or lesions noted GENERAL SKIN EXAM: no rashes or lesions noted Course 2 Vital Signs: Vital signs: Vital Signs Temperature 96.0 F L 07/18/24 01:22 Pulse Rate 62 07/18/24 04:13 Respiratory Rate 16 07/18/24 04:13 Blood Pressure 146/76 07/18/24 04:13 Pulse Oximetry 98 07/18/24 04:13 Oxygen Delivery Me thod Room Air 07/18/24 01:56 MDM - Headache Medical Decision Making White blood cell count is 14, but CRP is 3. BUN is 28. Chest x-ray is negative. CT is negative. He is given a liter of fluid. He is given a cocktail of medication for his head. He is feeling improved. COVID flu and RSV are pending. COVID flu and RSV negative. Symptoms are resolved. He will be allowed discharge. Lab Data 07/18/24 02:18 07/18/24 02:18 Radiology Impressions Chest X-Ray 07/18/24 02:05 IMPRESSION: No acute findings. Head CT 07/18/24 02:05 IMPRESSION: No acute intracranial abnormality. Laboratory Results WBC 14.12 10^3/uL (3.29-11.43) H 07/18/24 02:18 RBC 4.80 10^6/uL (3.85-5.65) 07/18/24 02:18 Hgb 15.10 g/dL (11.27-16.99) 07/18/24 02:18 Hct 44.8 % (37-53) 07/18/24 02:18 MCV 93.3 fl (82-101) 07/18/24 02:18 MCH 31.5 pg (27-33) 07/18/24 02:18 MCHC 33.7 g/dL (30-55) 07/18/24 02:18 RDW 12.1 % (12.1-15.1) 07/18/24 02:18 Plt Count 232 10^3/cmm (157-399) 07/18/24 02:18 MPV 10.5 fL (7.4-10.4) H 07/18/24 02:18 Neut % (Auto) 68.7 % 07/18/24 02:18 Lymph % (Auto) 17.8 % 07/18/24 02:18 [place] % (Auto) 9.0 % 07/18/24 02:18 Eos % (Auto) 3.6 % 07/18/24 02:18 Baso % (Auto) 0.6 % 07/18/24 02:18 Neut # (Auto) 9.70 10^3/uL (1.8-7.7) H 07/18/24 02:18 Lymph # (Auto) 2.5 10^3/uL (0.8-4.8) 07/18/24 02:18 [place] # (Auto) 1.3 10^3/uL (0.2-0.9) H 07/18/24 02:18 Eos # (Auto) 0.5 10^3/uL (0.0-0.8) 07/18/24 02:18 Baso # (Auto) 0.1 10^3/uL (0.0-0.1) 07/18/24 02:18 Nucleated RBC % (auto) 0 % 07/18/24 02:18 Nucleated RBCs # 0.0 /100WBC 07/18/24 02:18 Sodium 138 mmol/L (136-145) 07/18/24 02:18 Potassium 4.1 mmol/L (3.5-5.1) 07/18/24 02:18 Chloride 106 mmol/L (98-107) 07/18/24 02:18 Carbon Dioxide 21 mmol/L (22-29) L 07/18/24 02:18 Anion Gap 15.1 (5-19) 07/18/24 02:18 BUN 28 mg/dL (6-20) H 07/18/24 02:18 Creatinine 0.9 mg/dL (0.7-1.2) 07/18/24 02:18 GFR Calculation 87.9 mL/min (90-130) L 07/18/24 02:18 Glucose 99 mg/dL (65-115) 07/18/24 02:18 Calculated Osmolality 292 mOsm/kg (285-295) 07/18/24 02:18 Calcium 8.8 mg/dL (8.5-10.5) 07/18/24 02:18 Total Bilirubin 0.5 mg/dL (0.15-1.2) 07/18/24 02:18 AST 14 U/L (0-40) 07/18/24 02:18 ALT 17 U/L (0-41) 07/18/24 02:18 Alkaline Phosphatase 86 U/L (40-130) 07/18/24 02:18 C-Reactive Protein 3.0 mg/L (0.0-4.9) 07/18/24 02:18 Total Protein 6.7 g/dL (6.6-8.7) 07/18/24 02:18 Albumin 3.9 g/dL (3.5-5.2) 07/18/24 02:18 Globulin 2.8 g/dL (1.3-4.6) 07/18/24 02:18 Urine Color Yellow (Yellow) 07/18/24 03:04 Urine Appearance Clear (CLEAR) 07/18/24 03:04 Urine pH 5 (5-7) 07/18/24 03:04 Ur Specific [place] 1.015 (1.005-1.030) 07/18/24 03:04 Urine Protein Neg (Negative) 07/18/24 03:04 Urine Glucose (UA) Norm (Normal) 07/18/24 03:04 Urine Ketones Negative (Negative) 07/18/24 03:04 Urine Blood Neg (Negative) 07/18/24 03:04 Urine Nitrate Negative (Negative) 07/18/24 03:04 Urine Bilirubin Neg (Negative) 07/18/24 03:04 Urine Urobilinogen Norm mg/dL (Negative) 07/18/24 03:04 Ur Leukocyte Esterase Negative (Negative) 07/18/24 03:04 Amorphous Sediment Not Reportable 07/18/24 03:04 Ethyl Alcohol < 10 mg/dL (0-10) 07/18/24 02:18 Influenza A (PCR) Negative (Negative) 07/18/24 03:04 Influenza Type B (PCR) Negative (Negative) 07/18/24 03:04 RSV (PCR) Negative (Negative) 07/18/24 03:04 SARS-CoV-2 (PCR) Negative (Negative) 07/18/24 03:04 All radiology interpretation(s) finalized by discharge Discharge Plan Discharge Patient Disposition: Home Clinical Impression: Migraine Condition: Stable Prescriptions: New ketorolac 10 mg tablet 10 mg PO TID PRN (Reason: pain) Qty: 10 0RF No Action fluconazole [Diflucan] 100 mg tablet 100 mg PO Q72H Qty: 3 0RF Discharge Orders: Discharge ED (Routine); Ordered 07/18/24 Ordered By: Diaz Sheldon Referrals: Mara Pierce, [facility]ENT[facility] LIAISON-C [Primary Care Provider] - 1-3 days Patient Instructions: Acute Headache (ED), Opioid Safety, Pain Management Activity Restrictions/Additional Instructions: Medication as directed. Take scheduled for the first 24 hours, then as needed following. Return for continued fever, especially greater than 100.4, other concerning symptoms. Call your doctor on Friday for a follow-up appointment Print Language: New Zealander Coding Level of Care Code ED [employer] Fitter for Madison Aguayo
[2024-07-18 03:14] LABS: Add Urine Microscopic? NO
[2024-07-18] MEDS: sodium chloride 0.9% 1,000 ML 999 ML IV (03:14)
[2024-07-18 03:15] LABS: Bilirubin Urine Neg (Negative); Blood Urine Neg (Negative); Glucose Urine UA Norm (Normal); Ketones Urine Negative (Negative); Leukocyte Esterase Urine Negative (Negative); Nitrate Urine Negative (Negative); Protein Urine Neg (Negative); Specific Gravity, Urine 1.015 (1.005-1.030); Urine Appearance Clear (CLEAR); Urine Color Yellow (Yellow); Urobilinogen Urine Norm (Negative); pH Urine 5 (5-7)
[2024-07-18 03:16] LABS: Charge for UA Resulting for Rev
[2024-07-18 03:50] LABS: Influenza A NEGATIVE (Negative); Influenza B NEGATIVE (Negative); Respiratory Syncytial Virus Ce NEGATIVE (Negative); SARS-CoV-2 PCR NEGATIVE (Negative)
[2024-07-18 04:13] VITALS: BP 146/76; PULSE 62; RESP 16; O2SAT 98
== END 2024-07-18 04:14 | disposition home or self-care (01) ==
PROVIDERS: Emergency Provider Emergency Medicine; PCP Nurse Practitioner
DX: G43.909 Migraine, unspecified, not intractable, without status migrainosus (principal); Z11.52 Encounter for screening for COVID-19
CPT/HCPCS: 36415; 70450; 71045; 80053; 80307; 81003; 85025; 86140; 87637; 96361; 96374; 96375; 99285; J0780; J1885; J7030

== ENCOUNTER 2024-09-11 21:47 | Emergency (ER) | payer BC, MEDICAID, SELFPAY ==
[2024-09-11 21:55] VITALS: BP 124/80; PULSE 78; RESP 18; TEMP 36.7; O2SAT 96; BMI 21.7
[2024-09-12 01:44] LABS: Basophils # 0.1 10^3/uL (0.0-0.1); Basophils % 0.5 %; Eosinophils # 0.7 10^3/uL (0.0-0.8); Eosinophils % 6.8 %; Hematocrit 45.5 % (37-53); Lymphocytes # 1.8 10^3/uL (0.8-4.8); Lymphocytes % 17.6 %; Mean Corpuscular HGB Conc 33.2 g/dL (30-55); Mean Corpuscular Hemoglobin 31.7 pg (27-33); Mean Corpuscular Volume 95.4 fl (82-101); Mean Platelet Volume 9.6 fL (7.4-10.4); Monocytes # 1.2 10^3/uL (0.2-0.9); Monocytes % 12.1 %; Neutrophils # 6.29 10^3/uL (1.8-7.7); Neutrophils % 62.8 %; Nucleated Red Blood Cells % 0.2 %; Platelet Count 224 10^3/cmm (157-399); Red Blood Count 4.77 10^6/uL (3.85-5.65); Red Cell Distribution Width 12.1 % (12.1-15.1); White Blood Count 10.01 10^3/uL (3.29-11.43)
[2024-09-12 02:10] LABS: Alanine Aminotransferase 18 U/L (0-41); Albumin Level 4.1 g/dL (3.5-5.2); Alkaline Phosphatase 94 U/L (40-130); Aspartate Amino Transferase 16 U/L (0-40); Blood Urea Nitrogen 18 mg/dL (6-20); Calcium 8.8 mg/dL (8.5-10.5); Carbon Dioxide 19 mmol/L (22-29); Chloride 105 mmol/L (98-107); Creatine Phosphokinase 67 U/L (39-308); Creatinine Clr Calc Pharmacy 100.3201; Globulin 2.8 g/dL (1.3-4.6); Glomerular Filtration Rate 87.9 mL/min (90-130); Glucose 95 mg/dL (65-115); Osmolality Calculated 288 mOsm/kg (285-295); Sodium 138 mmol/L (136-145); Total Bilirubin 0.5 mg/dL (0.15-1.2); Total Protein 6.9 g/dL (6.6-8.7)
[2024-09-12 02:14] LABS: Anion Gap 18.2 (5-19); Potassium 4.2 mmol/L (3.5-5.1)
--- NOTE | 2024-09-12 02:19 | W.ED.SKABFB ---
HPI - Skin/Abscess/Foreign Bdy General: Chief complaint: Skin/Abscess/Foreign Body Stated complaint: Boiles on both Legs sever muscle spaz Time Seen by Provider: 09/12/24 00:37 History of Present Illness: 53-year-old male gentleman complaining of itchy pustules to the bilateral lower extremities. He states that he has found ticks on him that have been attached. He also complains of muscle spasms to his left upper extremity, mainly the arm. He has multiple other complaints including fatigue, paresthesias to his fingertips bilaterally, low-grade temperatures for the last several days. Related Data Previous Rx's ?Medication ?Instructions ?Recorded fluconazole 100 mg tablet 100 mg PO Q72H #3 tabs 03/05/24 (Diflucan) ketorolac 10 mg tablet 10 mg PO TID PRN pain #10 tabs 07/18/24 doxycycline hyclate 100 mg tablet 100 mg PO BID 10 days #20 tabs 09/12/24 Allergies Allergy/AdvReac Type Severity Reaction Status Date / Time Alpha-Gal Allergy Unknown Verified 04/05/24 20:15 (Qelilgjrh-Lzfzq-2,3-Gala Penicillins Allergy ALGY-Swell Verified 04/05/24 20:15 Lip/Tongue/Throat prednisone Allergy ADR-Gastrointestinal Verified 04/05/24 20:15 Upset influenza virus vaccine ts AdvReac ADR/ALGY-Pa Verified 04/05/24 20:15 [id number] (36 mos,up) (From lpitations Fluarix) corn Allergy Severe ALGY-Hives Uncoded 04/05/24 20:15 [facility] ED PFSH: Medical History Insomnia History of Lyme disease Centrilobular emphysema Anxiety, generalized Cigarette smoker Surgical History Previous back surgery Lumbar spine with cage. Had secondary infection with bacterial spine infection. 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 Pets and animals: Yes Do you think of yourself as: Straight/Heterosexual Current gender identity: Male Physical Exam Const: COMMON NORMALS: no acute distress GENERAL APPEARANCE: cooperative; not ill appearing and not frail appearing HENMT: COMMON NORMALS: normocephalic, atraumatic and Normal external nose present HEAD & SCALP: normocephalic and atraumatic FACE & SINUS: normal facial exam and face symmetric NOSE: Normal external nose present Eye: COMMON NORMALS: Equal, round and reactive pupils present and EOMs intact bilaterally PUPIL: Yes Equal, round and reactive pupils present Neck/C-Spine: GENERAL: Yes trachea midline Chest: CHEST: Yes Symmetrical chest wall rise Resp: COMMON NORMALS: normal respiratory effort, No retractions, No use of accessory muscles and clear to auscultation bilaterally AUSCULTATION: clear to auscultation bilaterally Cardio: COMMON NORMALS: regular rate and regular rhythm RATE: regular rate RHYTHM: regular rhythm GI: COMMON NORMALS: Normal to inspection, nondistended, normoactive bowel sounds present Extremity: COMMON NORMALS: no pedal edema Neuro: ALEA COMA SCALE: document GCS findings [place] coma scale eye opening: Spontaneous Alea coma scale verbal response: Orientated [place] coma scale motor response: Obey commands Alea coma scale total score: 15 SENSORY EXAM: Yes extremities (intact) Psych: COMMON NORMALS: speech normal SPEECH: Yes normal speech Skin: NARRATIVE SKIN EXAM: Bilateral lower extremities reveal multiple insect bite with varying ages and amount of excoriation. No target lesions. Course Vital Signs: Vital signs: Vital Signs Temperature 98.1 F 09/11/24 21:55 Pulse Rate 78 09/11/24 21:55 Respiratory Rate 18 09/11/24 21:55 Blood Pressure 124/80 09/11/24 21:55 Pulse Oximetry 96 09/11/24 21:55 Oxygen Delivery Me thod Room Air 09/11/24 21:55 MDM - Skin/Abscess/Foreign Bdy Medicial Decision Making Laboratory completed due to multiple complaints including fevers, etc. He is afebrile here. CBC is normal. Bicarbonate is 19. BMP is otherwise normal. Liver enzymes are normal. Platelet count is 224. CRP is 10. CK level is 67. No definite cause for muscle spasms or paresthesias. However, low bicarbonate level could be contributing. Coverage with doxycycline. Steroids for itching. Hydration. Lab Data 09/12/24 01:38 09/12/24 01:38 Laboratory Results WBC 10.01 10^3/uL (3.29-11.43) 09/12/24 01:38 RBC 4.77 10^6/uL (3.85-5.65) 09/12/24 01:38 Hgb 15.10 g/dL (11.27-16.99) 09/12/24 01:38 Hct 45.5 % (37-53) 09/12/24 01:38 MCV 95.4 fl (82-101) 09/12/24 01:38 MCH 31.7 pg (27-33) 09/12/24 01:38 MCHC 33.2 g/dL (30-55) 09/12/24 01:38 RDW 12.1 % (12.1-15.1) 09/12/24 01:38 Plt Count 224 10^3/cmm (157-399) 09/12/24 01:38 MPV 9.6 fL (7.4-10.4) 09/12/24 01:38 Neut % (Auto) 62.8 % 09/12/24 01:38 Lymph % (Auto) 17.6 % 09/12/24 01:38 [place] % (Auto) 12.1 % 09/12/24 01:38 Eos % (Auto) 6.8 % 09/12/24 01:38 Baso % (Auto) 0.5 % 09/12/24 01:38 Neut # (Auto) 6.29 10^3/uL (1.8-7.7) 09/12/24 01:38 Lymph # (Auto) 1.8 10^3/uL (0.8-4.8) 09/12/24 01:38 [place] # (Auto) 1.2 10^3/uL (0.2-0.9) H 09/12/24 01:38 Eos # (Auto) 0.7 10^3/uL (0.0-0.8) 09/12/24 01:38 Baso # (Auto) 0.1 10^3/uL (0.0-0.1) 09/12/24 01:38 Nucleated RBC % (auto) 0.2 % 09/12/24 01:38 Nucleated RBCs # 0.0 /100WBC 09/12/24 01:38 Sodium 138 mmol/L (136-145) 09/12/24 01:38 Potassium 4.2 mmol/L (3.5-5.1) 09/12/24 01:38 Chloride 105 mmol/L (98-107) 09/12/24 01:38 Carbon Dioxide 19 mmol/L (22-29) L 09/12/24 01:38 Anion Gap 18.2 (5-19) 09/12/24 01:38 BUN 18 mg/dL (6-20) 09/12/24 01:38 Creatinine 0.9 mg/dL (0.7-1.2) 09/12/24 01:38 GFR Calculation 87.9 mL/min (90-130) L 09/12/24 01:38 Glucose 95 mg/dL (65-115) 09/12/24 01:38 Calculated Osmolality 288 mOsm/kg (285-295) 09/12/24 01:38 Calcium 8.8 mg/dL (8.5-10.5) 09/12/24 01:38 Total Bilirubin 0.5 mg/dL (0.15-1.2) 09/12/24 01:38 AST 16 U/L (0-40) 09/12/24 01:38 ALT 18 U/L (0-41) 09/12/24 01:38 Alkaline Phosphatase 94 U/L (40-130) 09/12/24 01:38 Creatine Kinase 67 U/L (39-308) 09/12/24 01:38 C-Reactive Protein 10.0 mg/L (0.0-4.9) H 09/12/24 01:38 Total Protein 6.9 g/dL (6.6-8.7) 09/12/24 01:38 Albumin 4.1 g/dL (3.5-5.2) 09/12/24 01:38 Globulin 2.8 g/dL (1.3-4.6) 09/12/24 01:38 Amorphous Sediment Not Reportable 09/12/24 01:52 No radiology studies performed this visit Discharge Plan Discharge Patient Disposition: Home Clinical Impression: Insect bite Condition: Stable Prescriptions: New doxycycline hyclate 100 mg tablet 100 mg PO BID 10 Days Qty: 20 0RF No Action fluconazole [Diflucan] 100 mg tablet 100 mg PO Q72H Qty: 3 0RF ketorolac 10 mg tablet 10 mg PO TID PRN (Reason: pain) Qty: 10 0RF Discharge Orders: Discharge ED (Routine); Ordered 09/12/24 Ordered By: Diaz Sheldon Referrals: Mara Pierce FNP-C [Primary Care Provider, [facility]] - 4-7 days Patient Instructions: Insect Bites and Stings, Dehydration (ED), Opioid Safety, Pain Management Activity Restrictions/Additional Instructions: Drink plenty of clear liquids the next 48 hours. This can help with the paresthesias you are having as well as the muscle spasms, as your bicarbonate level was low. Coverage with antibiotics. You were not placed on steroids, as you have intolerances to this. Return for any worsening symptoms. Follow-up with your doctor next week. Call for an appointment. Print Language: Estonian Coding Level of Care Code ED Project Control Officer for Madison Aguayo
[2024-09-12] MEDS: dexamethasone 4 mg Tablet 10 MG PO (02:32)
[2024-09-12] MEDS: doxycycline 100 mg Tablet PO (02:33)
[2024-09-12 02:49] LABS: Bilirubin Urine Negative (Negative); Blood Urine Negative (Negative); Glucose Urine UA Negative (Normal); Ketones Urine Negative (Negative); Leukocyte Esterase Urine Negative (Negative); Nitrate Urine Negative (Negative); Protein Urine Negative (Negative); Specific Gravity, Urine 1.004 (1.005-1.030); Urine Appearance Clear (CLEAR); Urine Color Yellow (Yellow); Urobilinogen Urine 0.2 mg/dL (Negative); pH Urine 5.5 (5-7)
[2024-09-12 02:54] LABS: Add Urine Microscopic? YES; Bacteria Urine None Seen /hpf; Hyaline Casts Urine 0-4 /lpf; RBC Urine 0-2 /hpf (0-2); Squamous Epithelial Cell Urine 0-5 /hpf (0-5); WBC Urine 0-5 /hpf (0-5)
== END 2024-09-12 02:37 | disposition home or self-care (01) ==
PROVIDERS: Emergency Provider Emergency Medicine; PCP Nurse Practitioner
DX: L08.9 Local infection of the skin and subcutaneous tissue, unspecified (principal); W57.XXXA Bitten or stung by nonvenomous insect and other nonvenomous arthropods, initial encounter; R50.9 Fever, unspecified
CPT/HCPCS: 36415; 80053; 81001; 82550; 85025; 86140; 99283; J8540; J9999

== ENCOUNTER → 2024-09-29 14:41 | Outpatient (BNVA) | payer BC, MEDICAID, SELFPAY | PROVIDERS: PCP Nurse Practitioner; Visit Provider Clinical Nurse Specialist Adult Health | DX: Z20.9 Contact with and (suspected) exposure to unspecified communicable disease (principal) | CPT/HCPCS: 80074; 86592; 87491; 87591; 87661; 87806 ==

== ENCOUNTER 2024-10-04 14:52 | Emergency (ER) | payer BC, MEDICAID, SELFPAY ==
[2024-10-04 15:28] VITALS: BP 123/76; PULSE 81; RESP 17; TEMP 36.8; O2SAT 96; BMI 22.9
[2024-10-04 16:17] LABS: Basophils # 0.1 10^3/uL (0.0-0.1); Basophils % 0.7 %; Eosinophils # 0.2 10^3/uL (0.0-0.8); Eosinophils % 1.8 %; Hematocrit 45.5 % (37-53); Lymphocytes # 2.3 10^3/uL (0.8-4.8); Lymphocytes % 26.4 %; Mean Corpuscular HGB Conc 34.1 g/dL (30-55); Mean Corpuscular Hemoglobin 31.1 pg (27-33); Mean Corpuscular Volume 91.4 fl (82-101); Mean Platelet Volume 9.4 fL (7.4-10.4); Monocytes # 0.9 10^3/uL (0.2-0.9); Monocytes % 9.9 %; Neutrophils # 5.41 10^3/uL (1.8-7.7); Nucleated Red Blood Cells % 0 %; Platelet Count 261 10^3/cmm (157-399); Red Blood Count 4.98 10^6/uL (3.85-5.65); Red Cell Distribution Width 11.9 % (12.1-15.1); White Blood Count 8.87 10^3/uL (3.29-11.43)
--- NOTE | 2024-10-04 16:19 | XRR_ITS ---
PROCEDURE INFORMATION: Exam: XR Chest Exam date and time: 10/04/2024 4:41 PM Age: 53 years old Clinical indication: Cough and dyspnea; Additional info: Dyspnea/cough TECHNIQUE: Imaging protocol: Radiologic exam of the chest. Views: 1 view. COMPARISON: CR XR chest 1V portable [id number] 07/18/2024 2:17 AM FINDINGS: Lungs: Unremarkable. No consolidation or mass. Pleural spaces: Unremarkable. No pleural effusion. No pneumothorax. Heart/Mediastinum: Unremarkable. No cardiomegaly. Bones/joints: Unremarkable. XR/XR chest 1V portable [id number] IMPRESSION: No acute findings.
--- NOTE | 2024-10-04 16:29 | ED_ITS ---
HPI - URI/Sore Throat 2 General: Chief Complaint: Upper Respiratory Infection Stated Complaint: infection in jaw and neck Time Seen by Provider: 10/04/24 16:09 History of Present Illness: 53-year-old male presents emergency room stating he was seen for an upper respiratory infection he was initially given doxycycline and then took a course of Zithromax for strep he says he feels like he is getting worse just feels very fatigued reports numbness in his hands swelling in his neck. He is not having any diarrhea no vomiting no shortness of breath no productive cough. No dysuria urgency or frequency. Associated symptoms: Deny abdominal pain, chills, chest pain or fever(s) Related Data Home Medications ?Medication ?Instructions ?Recorded ?Confirmed cetirizine 10 mg tablet (All Day 10 mg PO DAILY PRN 10/07/24 Allergy (cetirizine)) Previous Rx's ?Medication ?Instructions ?Recorded sucralfate 100 mg/mL oral 10 ml PO BID 30 days #600 mL 10/07/24 suspension Allergies Allergy/AdvReac Type Severity Reaction Status Date / Time Alpha-Gal Allergy Unknown Verified 10/04/24 15:34 (Eldloeuhj-[place]hi[place]-1,3-Gala Penicillins Allergy ALGY-Swell Verified 10/04/24 15:34 Lip/Tongue/Throat prednisone Allergy ADR-Gastrointestinal Verified 10/04/24 15:34 Upset influenza virus vaccine ts AdvReac ADR/ALGY-Pa Verified 10/04/24 15:34 [id number] (36 mos,up) (From lpitations Fluarix) corn Allergy Severe ALGY-Hives Uncoded 09/29/24 14:07 Review of Systems 2 Const: Denies: fever(s) or chills Card: Denies: chest pain Resp: Denies: dyspnea GI: Denies: abdominal pain : Denies: dysuria, urinary frequency or urinary urgency Musc: Denies: neck pain or back pain Skin/Breast: Denies: rash PFSH ED 2 PFSH: Medical History Insomnia History of Lyme disease Centrilobular emphysema Anxiety, generalized Cigarette smoker Surgical History Previous back surgery Lumbar spine with cage. Had secondary infection with bacterial spine infection. 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 Pets and animals: Yes Do you think of yourself as: Straight/Heterosexual Current gender identity: Male Physical Exam 2 Const: GENERAL APPEARANCE: cooperative ORIENTATION/CONSCIOUSNESS: Yes awake, Yes oriented to person, Yes oriented to place and Yes oriented to time HENMT: COMMON NORMALS: normocephalic, atraumatic and hearing grossly normal bilaterally HEAD & SCALP: normocephalic and atraumatic Neck/C-Spine: COMMON NORMALS: no lymphadenopathy, supple, no meningeal signs and Thyroid normal THYROID: Thyroid normal Resp: COMMON NORMALS: normal respiratory effort, No retractions, No use of accessory muscles and clear to auscultation bilaterally AUSCULTATION: clear to auscultation bilaterally Cardio: COMMON NORMALS: regular rate, regular rhythm and No murmurs present (Cardio) RATE: regular rate RHYTHM: regular rhythm GI: COMMON NORMALS: Soft to palpation and No hepatosplenomegaly present A USCULTATION: Yes normoactive bowel sounds PALPATION: Yes Soft to palpation, No Tenderness to palpation present (GI), No Guarding due to palpation present (GI) and Yes No hepatosplenomegaly present Extremity: COMMON NORMALS: normal to inspection, capillary refill normal, no clubbing, cyanosis or edema, no calf tenderness and no pedal edema Neuro: SENSORIUM/ORIENTATION: Yes oriented to person, Yes oriented to place and Yes oriented to time MENINGEAL SIGNS: Yes no meningeal signs Skin: COMMON NORMALS: no rashes or lesions noted GENERAL SKIN EXAM: no rashes or lesions noted Course 2 Vital Signs: Vital signs: Vital Signs Temperature 98.3 F 10/04/24 15:28 Pulse Rate 69 06/23/25 18:07 Respiratory Rate 17 10/04/24 15:28 Blood Pressure 119/88 10/04/24 18:07 Pulse Oximetry 97 10/04/24 18:07 Oxygen Delivery Me thod Room Air 10/04/24 16:34 MDM - URI/Sore Throat Medical Decision Making Patient given prescription for clindamycin 4 times daily for 10 days. Follow-up with primary care if not improving. Lab Data 10/04/24 13:58 10/04/24 13:58 Radiology Impressions Chest X-Ray 10/04/24 16:19 IMPRESSION: No acute findings. Laboratory Results WBC 8.87 10^3/uL (3.29-11.43) 10/04/24 13:58 RBC 4.98 10^6/uL (3.85-5.65) 10/04/24 13:58 Hgb 15.50 g/dL (11.27-16.99) 10/04/24 13:58 Hct 45.5 % (37-53) 10/04/24 13:58 MCV 91.4 fl (82-101) 10/04/24 13:58 MCH 31.1 pg (27-33) 10/04/24 13:58 MCHC 34.1 g/dL (30-55) 10/04/24 13:58 RDW 11.9 % (12.1-15.1) L 10/04/24 13:58 Plt Count 261 10^3/cmm (157-399) 10/04/24 13:58 MPV 9.4 fL (7.4-10.4) 10/04/24 13:58 Neut % (Auto) 61.0 % 10/04/24 13:58 Lymph % (Auto) 26.4 % 10/04/24 13:58 [place] % (Auto) 9.9 % 10/04/24 13:58 Eos % (Auto) 1.8 % 10/04/24 13:58 Baso % (Auto) 0.7 % 10/04/24 13:58 Neut # (Auto) 5.41 10^3/uL (1.8-7.7) 10/04/24 13:58 Lymph # (Auto) 2.3 10^3/uL (0.8-4.8) 10/04/24 13:58 [place] # (Auto) 0.9 10^3/uL (0.2-0.9) 10/04/24 13:58 Eos # (Auto) 0.2 10^3/uL (0.0-0.8) 10/04/24 13:58 Baso # (Auto) 0.1 10^3/uL (0.0-0.1) 10/04/24 13:58 Nucleated RBC % (auto) 0 % 10/04/24 13:58 Nucleated RBCs # 0.0 /100WBC 10/04/24 13:58 Sodium 142 mmol/L (136-145) 10/04/24 13:58 Potassium 4.4 mmol/L (3.5-5.1) 10/04/24 13:58 Chloride 105 mmol/L (98-107) 10/04/24 13:58 Carbon Dioxide 23 mmol/L (22-29) 10/04/24 13:58 Anion Gap 18.4 (5-19) 10/04/24 13:58 BUN 13 mg/dL (6-20) 10/04/24 13:58 Creatinine 0.9 mg/dL (0.7-1.2) 10/04/24 13:58 GFR Calculation 87.9 mL/min (90-130) L 10/04/24 13:58 Glucose 85 mg/dL (65-115) 10/04/24 13:58 Calculated Osmolality 293 mOsm/kg (285-295) 10/04/24 13:58 Calcium 9.4 mg/dL (8.5-10.5) 10/04/24 13:58 Total Bilirubin 0.8 mg/dL (0.15-1.2) 10/04/24 13:58 AST 13 U/L (0-40) 10/04/24 13:58 ALT 17 U/L (0-41) 10/04/24 13:58 Alkaline Phosphatase 89 U/L (40-130) 10/04/24 13:58 Total Protein 7.3 g/dL (6.6-8.7) 10/04/24 13:58 Albumin 4.2 g/dL (3.5-5.2) 10/04/24 13:58 Globulin 3.1 g/dL (1.3-4.6) 10/04/24 13:58 Influenza A (PCR) Negative (Negative) 10/04/24 16:30 Influenza Type B (PCR) Negative (Negative) 10/04/24 16:30 RSV (PCR) Negative (Negative) 10/04/24 16:30 SARS-CoV-2 (PCR) Negative (Negative) 10/04/24 16:30 No radiology studies performed this visit Discharge Plan Discharge Patient Disposition: Home Clinical Impression: Pain, dental Condition: Stable Prescriptions: No Action sucralfate 100 mg/mL suspension 10 ml PO BID 30 Days Qty: 600 5RF cetirizine [All Day Allergy (cetirizine)] 10 mg tablet 10 mg PO DAILY PRN Discharge Orders: Discharge ED (Routine); Ordered 10/04/24 Ordered By: Umair Liao Referrals: Mara Pierce, ARACELIC [Primary Care Provider, Family Practice] Discharge Diet: Soft Mechanical Discharge Activity: Resume usual activity Patient Instructions: Dental Abscess (ED), Opioid Safety, Pain Management Activity Restrictions/Additional Instructions: Thank you for choosing [facility] for your healthcare needs today. It is very important that you follow up as instructed or that you return to the Emergency Department should you have concerns or if your condition changes or worsens in any way. Print Language: Sammarinese Coding Level of Care Code ED Community Health Promoter for Madison Aguayo
[2024-10-04 16:34] VITALS: BP 137/84; PULSE 75; O2SAT 95
[2024-10-04 16:56] LABS: Alanine Aminotransferase 17 U/L (0-41); Albumin Level 4.2 g/dL (3.5-5.2); Alkaline Phosphatase 89 U/L (40-130); Anion Gap 18.4 (5-19); Aspartate Amino Transferase 13 U/L (0-40); Blood Urea Nitrogen 13 mg/dL (6-20); Calcium 9.4 mg/dL (8.5-10.5); Carbon Dioxide 23 mmol/L (22-29); Chloride 105 mmol/L (98-107); Globulin 3.1 g/dL (1.3-4.6); Glomerular Filtration Rate 87.9 mL/min (90-130); Glucose 85 mg/dL (65-115); Osmolality Calculated 293 mOsm/kg (285-295); Potassium 4.4 mmol/L (3.5-5.1); Sodium 142 mmol/L (136-145); Total Bilirubin 0.8 mg/dL (0.15-1.2); Total Protein 7.3 g/dL (6.6-8.7)
[2024-10-04 17:28] LABS: Influenza A NEGATIVE (Negative); Influenza B NEGATIVE (Negative); Respiratory Syncytial Virus Ce NEGATIVE (Negative); SARS-CoV-2 PCR NEGATIVE (Negative)
[2024-10-04 18:07] VITALS: BP 119/88; PULSE 69; O2SAT 97
== END 2024-10-04 18:17 | disposition home or self-care (01) ==
PROVIDERS: Emergency Provider Family Medicine; PCP Nurse Practitioner
DX: K08.89 Other specified disorders of teeth and supporting structures (principal); Z11.52 Encounter for screening for COVID-19; F17.210 Nicotine dependence, cigarettes, uncomplicated
CPT/HCPCS: 36415; 71045; 80053; 85025; 87637; 99284

== ENCOUNTER 2025-03-16 18:16 | Emergency (ER) | payer SELFPAY ==
--- OUTSIDE RECORDS SUMMARY | 2020-09-29 18:00 | XMS_ITS | Continuity of Care Document ---
Author Organization [facility] Address [address] [place] [address] Phone Care Team Providers Care Car Clerk Pullman Name Role Phone Stephanie MACKEY, Kimo Unavailable Unavailable Procedures Procedure Date ELECTROCARDIOGRAM REPORT Advance Directives Directive Yes / No Effective Date File Name No Information Encounters Encounter Description Practice Location Reason(s) For Visit Diagnoses Date Provider Encounter Disposition [facility], [address], [place], [id number], [place] tel:[phone] [place] [address] Emergency Department No Information 1 Stephanie Malin. [address] [place], [id number] , [place]. tel: [phone] Family History Family Member Type Diagnosis Age At Onset No Information Payers Payer name Insurance type Identifiers Authorization(s) [employer] [id number] CI riber ID: [id number] Name: Coverage Status Eligibility Check on: UnknownRelationship to Subscriber: selfPayer Address: [address] [place] [address] Lewis Hernandez [place], [id number], [facility] Phone: Social History Type Description Quantity Date Captured Comments Sex Male Smoking Status No Information Current Gender Male (finding) Chief Complaint And Reason For Visit No Information History Of Present Illness Encounter Date Complaint History Of Prese nt Illness No Information Functional Status Date Description Comments No Information Instructions Date Instruction Additional Infor mation No Information Assessments Type Assessment Date No Information
--- OUTSIDE RECORDS SUMMARY | 2025-03-16 18:23 | XMS_ITS | Clinical Summary ---
Author Organization [facility] Address [address] [place] [address] Phone Care Team Providers Care Logistics Support Name Role Phone Unavailable Primary Care Provider Unavailabl e Allergies Active Allergy Reactions Criticality Noted Date Comments Alpha-Gal (Ltqxbtost-Rntxw-2,3-Galacto se) Anaphylaxis High 04/06/2023 [place] Hives High 05/21/2021 Divalproex Headache Low 09/15/2021 Flu Vaccine 2010-(3 Yr+)(Pf) Hives High 05/21/2021 Penicillins Hives High 05/21/2021 Prednisone Other (See Comments) 05/21/2021 hemoptysis Medications traMADoL (ULTRAM) 50 mg tabletIndication s:Acute colitis Take 1 Tablet (50 mg) by mouth every 6 hours as needed for Pain. 20 Tablet 02/08/2023 Active buPROPion HCL (WELLBUTRIN XL) 150 mg Extended Release 24 hour tablet Take 150 mg by mouth daily in the morning. Active Active Problems Problem Noted Date Diagnosed Date Gastroesophageal reflux disease without esophagi tis 04/06/2023 Acute encephalopathy 04/06/2023 Left-sided weakness 04/06/2023 Confusion 04/06/2023 Mood disorder 04/06/2023 Social History Tobacco Use Types Packs/Day Years Used Date Smoking Tobacco: Some Days Cigarettes Smokeless Tobacco: Current Chew Alcohol Use Standard Drinks/Week Comments Never 0 (1 standard drink = 0.6 oz pur e alcohol) Feeling Safe Answer Date Recorded Are you in a relationship wi th someone who hurts you emotionally and/or physically? 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 Gender Identity Not on file Sexual Orientation Not on file Last Filed Vital Signs Vital Sign Reading Time Taken Comments Blood Pressure 117/77 04/07/2023 8:25 AM 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 Pulse 52 04/07/2023 8:25 AM SANDBLASTER 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 Temperature 36.5 C (97.7 F) 04/07/2023 8:25 AM SANDBLASTER 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 Respiratory Rate 18 04/07/2023 8:25 AM SANDBLASTER 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 Oxygen Saturation 94% 04/07/2023 8:25 AM SANDBLASTER 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 Inhaled Oxygen Concentration - - Weight 71.5 kg (157 lb 10.1 oz) 023 12:15 AM SANDBLASTER 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 Height 182.9 cm (6') 04/06/2023 12:15 AM SANDBLASTER 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 Body Mass Index 21.38 04/06/2023 12:15 AM SANDBLASTER 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 Plan of Treatment Health Maintenance Due Date Last Done Comments DTAP/TDAP/TD VACCINES (1 - Tdap) 1988 HEPATITIS B VACCINES (1 of 3 - 19+ 3-dose series) 11/12 COLORECTAL SCREENING 2014 Colorectal Cancer Screening 2014 FIT-DNA Q 3 years 2014 FIT/FOBT Q 1 year 2014 Flex Sig/CT Colonography Q 5 years 2014 ZOSTER VACCINE (1 of 2) 11/30/2019 INFLUENZA VACCINE (#1) 2024 Insurance [facility] MEDICAID Advance Directives For more information, please contact: [phone] * Full Code (Latest Code Status on File) Date Activated Date Inactivated Comments 04/06/2023 1:19 AM 04/07/2023 1:17 PM
[2025-03-16 18:30] VITALS: BP 124/76; PULSE 71; TEMP 36.8; O2SAT 95
--- NOTE | 2025-03-16 18:31 | XRR_ITS ---
PROCEDURE INFORMATION: Exam: XR Chest Exam date and time: 03/16/2025 6:43 PM Age: 54 years old Clinical indication: Cough and dyspnea; Additional info: Dyspnea/cough TECHNIQUE: Imaging protocol: Radiologic exam of the chest. Views: 1 view. COMPARISON: CR XR chest 1V portable [id number] 10/04/2024 4:41 PM FINDINGS: Lungs: Hyperinflation or emphysematous change. Tiny benign calcified granuloma inferior upper left lung. No infiltrate or consolidation. Pleural spaces: No pleural effusion or pneumothorax. Heart/Mediastinum: Unremarkable. No cardiomegaly. Bones/joints: Visualized osseous structures show no acute abnormality. Spondylotic change thoracic spine. Other findings: No acute change from previous exam. XR/XR chest 1V portable [id number] IMPRESSION: Hyperinflation or emphysematous change suggested. No acute findings otherwise, without significant change with prior exam.
--- NOTE | 2025-03-16 18:35 | ECG_ITS ---
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 Measurements Intervals [place] Rate: 68 P: 78 MD: 150 QRS: 58 QRSD: 94 T: 69 QT: 380 QTc: 406 Interpretive Statements SINUS RHYTHM INDETERMINATE AXIS INCOMPLETE RIGHT BUNDLE BRANCH BLOCK [90+ ms QRS DURATION, TERMINAL R IN V1/V2, 40+ ms S IN I/aVL/V4/V5/V6] Compared to ECG 04/05/2024 20:15:41 Indeterminate axis now present Electronically Signed On 03-16-2025 23:26:57 MISSION ANALYST by Dimitrios Youngblood M.D. [email or web address]
[2025-03-16 19:24] LABS: Hematocrit 43.5 % (37-53); Hemoglobin 14.80 g/dL (11.27-16.99); Mean Corpuscular HGB Conc 34.0 g/dL (30-55); Mean Corpuscular Hemoglobin 31.4 pg (27-33); Mean Corpuscular Volume 92.2 fl (82-101); Nucleated Red Blood Cells % 0 %; Platelet Count 257 10^3/cmm (157-399); Red Blood Count 4.72 10^6/uL (3.85-5.65); White Blood Count 10.80 10^3/uL (3.29-11.43)
[2025-03-16 19:40] LABS: Alanine Aminotransferase 13 U/L (0-41); Albumin Level 4.1 g/dL (3.5-5.2); Alkaline Phosphatase 81 U/L (40-130); Anion Gap 15.5 (5-19); Aspartate Amino Transferase 13 U/L (0-40); Blood Urea Nitrogen 17 mg/dL (6-20); Calcium 8.9 mg/dL (8.5-10.5); Carbon Dioxide 23 mmol/L (22-29); Chloride 104 mmol/L (98-107); Globulin 2.7 g/dL (1.3-4.6); Glucose 91 mg/dL (65-115); Osmolality Calculated 287 mOsm/kg (285-295); Potassium 4.5 mmol/L (3.5-5.1); Sodium 138 mmol/L (136-145); Total Protein 6.8 g/dL (6.6-8.7)
[2025-03-16 21:15] VITALS: BP 124/66; PULSE 58; RESP 16; O2SAT 95
--- NOTE | 2025-03-16 21:43 | ED_ITS ---
HPI - Chest Pain 2 General: Chief Complaint: Chest Pain Stated Complaint: Chest Hurts obstruction Possible\Dizzy Time Seen by Provider: 03/16/25 21:16 History of Present Illness: 54-year-old male history of smoker, ques tionable history of COPD (patient was initially told he had COPD but then underwent pulmonary function testing that was reportedly normal and was told he does not have COPD approximately 1 to 2 years ago), allergies, presenting to the emergency department with approximately 1 week history of intermittent chest pain, sometimes on exertion, sometimes not on exertion, nonradiating, described as a pressure-like discomfort, currently denies any pain to the chest but has some mild pressure, also endorses a chronic cough x 2 to 3 months with increased sputum production, denies fever, denies runny nose, denies leg swelling or calf tenderness, no known history of cardiac disease, no other drug or alcohol abuse other than smoking. Related Data Previous Rx's ?Medication ?Instructions ?Recorded azelastine 137 mcg (0.1 %) nasal 2 spray intranasal BI D #30 mL 12/29/24 spray quetiapine 50 mg tablet,extended 50 - 150 mg (1 - 3 x 50 mg) PO 12/29/24 release 24 hr (Seroquel XR) .with eveing meal #90 tabs Allergies Allergy/AdvReac Type Severity Reaction Status Date / Time Alpha-Gal Allergy Unknown Verified 03/16/25 18:35 (Vsotppwmw-Rrpth-5,3-Gala Penicillins Allergy ALGY-Swell Verified 03/16/25 18:35 Lip/Tongue/Throat prednisone Allergy ADR-Gastrointestinal Verified 03/16/25 18:35 Upset influenza virus vaccine ts AdvReac ADR/ALGY-Pa Verified 03/16/25 18:35 [id number] (36 mos,up) (From lpitations Fluarix) corn Allergy Severe ALGY-Hives Uncoded 03/16/25 18:35 PFSH ED 2 PFSH: Medical History Seasonal allergic rhinitis Insomnia History of Lyme disease Centrilobular emphysema Anxiety, generalized Cigarette smoker Surgical History Previous back surgery Lumbar spine with cage. Had secondary infection with bacterial spine infection. 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 Pets and animals: Yes Do you think of yourself as: Straight/Heterosexual Current gender identity: Male Physical Exam 2 Narrative: EXAM NARRATIVE: Gen: A&Ox4, no acute distress, nontoxic appearing HEENT: Normocephalic, atraumatic, no scleral icterus, external ears normal, moist mucous membranes Neck: Supple, full range of motion, no observable masses Lungs: No Respiratory distress, Lungs clear to auscultation bilaterally no rales, rhonchi, wheezing CV: Regular rate and rhythm, no murmur, no pitting edema to lower extremities bilaterally, no tenderness to palpation of the chest wall Abdomen: Soft, nondistended, nontender to palpation MSK: No joint swelling, FROM all 4 extremities Skin: No rashes, petechiae, lesions. Normal color per patient. Neuro: Alert and oriented, no slurred speech, sensation and strength grossly intact all 4 extremities Psych: Appropriate for situation. Course 2 Reevaluation(s): Reevaluation #1: Patient reassessed, feels well, troponin negative, heart score 3, comfortable with discharge with outpatient cardiology follow-up. Patient does report he received a stress test approximately 5 or 6 years ago that was completely normal per his report. He understands the need to return to the emergency department if his symptoms return or worsen, I recommend he improve his sleep hygiene and get adequate rest and avoid excessive exertion until he is cleared by cardiology. Time: 23:12 Vital Signs: Vital signs: Vital Signs Temperature 98.2 F 03/16/25 18:30 Pulse Rate 54 L 03/16/25 22:24 Respiratory Rate 16 03/16/25 22:24 Blood Pressure 120/67 03/16/25 22:24 Pulse Oximetry 95 03/16/25 22:24 Oxygen Delivery Me thod Room Air 03/16/25 22:24 MDM - Chest Pain Medical Decision Making 54-year-old male with a past medical history of smoking, questionable emphysema history, no known intrinsic cardiac disease, presenting to the emergency department with nonspecific chest pain intermittent x 1 week occasionally exertional, pressure-like sensation, also associated with a 2 to 3-month history of cough, no dyspnea, no fever, no leg swelling or calf tenderness, no risk factors for DVT/PE other than smoking identified, initial exam benign, EKG without evidence of acute ischemia, no S1Q3T3, there is an incomplete right bundle branch block, plan for troponin rule out NSTEMI, differential atypical chest pain versus ACS/unstable angina with low risk heart score, discussed management options with patient to include inpatient admission for observation versus outpatient cardiology referral, shared decision making utilized after discussion of the heart score to facilitate outpatient cardiology evaluation, patient understands to return to the ED if symptoms worsen in the interim. Chest x-ray showing evidence of hyperinflation which patient reportedly has had in the past, also shows a granuloma in the left upper lung, patient reports he has had this biopsied and was told it was benign. Lab Data Labs with borderline creatinine 1.2, negative troponin, no leukocytosis or anemia 03/16/25 19:07 03/16/25 19:07 Radiology Impressions Chest X-Ray 03/16/25 18:31 IMPRESSION: Hyperinflation or emphysematous change suggested. No acute findings otherwise, without significant change with prior exam. Laboratory Results WBC 10.80 10^3/uL (3.29-11.43) 03/16/25 19:07 RBC 4.72 10^6/uL (3.85-5.65) 03/16/25 19:07 Hgb 14.80 g/dL (11.27-16.99) 03/16/25 19:07 Hct 43.5 % (37-53) 03/16/25 19:07 MCV 92.2 fl (82-101) 03/16/25 19:07 MCH 31.4 pg (27-33) 03/16/25 19:07 MCHC 34.0 g/dL (30-55) 03/16/25 19:07 RDW 12.3 % (12.1-15.1) 03/16/25 19:07 Plt Count 257 10^3/cmm (157-399) 03/16/25 19:07 MPV 9.8 fL (7.4-10.4) 03/16/25 19:07 Neut % (Auto) 57.0 % 03/16/25 19:07 Lymph % (Auto) 25.4 % 03/16/25 19:07 [place] % (Auto) 12.5 % 03/16/25 19:07 Eos % (Auto) 4.3 % 03/16/25 19:07 Baso % (Auto) 0.6 % 03/16/25 19:07 Neut # (Auto) 6.17 10^3/uL (1.8-7.7) 03/16/25 19:07 Lymph # (Auto) 2.7 10^3/uL (0.8-4.8) 03/16/25 19:07 [place] # (Auto) 1.4 10^3/uL (0.2-0.9) H 03/16/25 19:07 Eos # (Auto) 0.5 10^3/uL (0.0-0.8) 03/16/25 19:07 Baso # (Auto) 0.1 10^3/uL (0.0-0.1) 03/16/25 19:07 Nucleated RBC % (auto) 0 % 03/16/25 19:07 Nucleated RBCs # 0.0 /100WBC 03/16/25 19:07 Sodium 138 mmol/L (136-145) 03/16/25 19:07 Potassium 4.5 mmol/L (3.5-5.1) 03/16/25 19:07 Chloride 104 mmol/L (98-107) 03/16/25 19:07 Carbon Dioxide 23 mmol/L (22-29) 03/16/25 19:07 Anion Gap 15.5 (5-19) 03/16/25 19:07 BUN 17 mg/dL (6-20) 03/16/25 19:07 Creatinine 1.2 mg/dL (0.7-1.2) 03/16/25 19:07 GFR Calculation 62.9 mL/min (90-130) L 03/16/25 19:07 Glucose 91 mg/dL (65-115) 03/16/25 19:07 Calculated Osmolality 287 mOsm/kg (285-295) 03/16/25 19:07 Calcium 8.9 mg/dL (8.5-10.5) 03/16/25 19:07 Total Bilirubin 0.5 mg/dL (0.15-1.2) 03/16/25 19:07 AST 13 U/L (0-40) 03/16/25 19:07 ALT 13 U/L (0-41) 03/16/25 19:07 Alkaline Phosphatase 81 U/L (40-130) 03/16/25 19:07 Troponin T Baseline < 6 ng/L (0-15) 03/16/25 19:07 Troponin T 120 Minute 6.68 ng/L (0-15) 03/16/25 22:05 Delta Troponin T 0.33060 ABS# (0-10) 03/16/25 22:05 Total Protein 6.8 g/dL (6.6-8.7) 03/16/25 19:07 Albumin 4.1 g/dL (3.5-5.2) 03/16/25 19:07 Globulin 2.7 g/dL (1.3-4.6) 03/16/25 19:07 All radiology interpretation(s) finalized by discharge ED provider radiology interpretation(s): Chest x-ray showing hyperinflation and a calcified nodule in the left upper lung EKG Data EKG 1: I personally reviewed and interpreted this EKG as follows: EKG interpretation date: 03/16/25 EKG interpretation time: 21:48 Interpretation: EKG showing sinus rhythm at 60 bpm, no STEMI, no ectopy, incomplete right bundle branch block, QTc 406 ms Discharge Plan Discharge Patient Disposition: Home Clinical Impression: Chest pain Condition: Stable Prescriptions: No Action quetiapine [Seroquel XR] 50 mg tablet extended release 24 hr 50 - 150 mg PO .with eveing meal Qty: 90 0RF azelastine 137 mcg (0.1 %) spray,non-aerosol 2 spray intranasal BID Qty: 30 5RF Rx Instructions: administer into each nostril Discharge Orders: Discharge ED (Routine); Ordered 03/16/25 Ordered By: Gilbert Blankenship Referrals: Mara Pierce, FAMILY DEVELOPMENT SPECIALIST-C [Primary Care Provider, Family Practice] Tom Hunt MD [Physician, Cardiology] Patient Instructions: Chest Pain (DC), Patient Portal & [place] Instructions Activity Restrictions/Additional Instructions: You were seen in the emergency department for chest pain, your workup in the emergency department did not show evidence of a heart attack. At this time it appears safe for you to return home, rest, increase your sleep and avoid excessive exertion, monitor your symptoms and return to the ER if they at any point worsen or you develop any new symptoms such as pain radiating into your jaw or arm, shortness of breath, or episodes of passing out or palpitations. Follow-up with the bakery machine mechanic, case management referral has been placed to call you to establish a appointment however I did provide the phone number of the cardiology clinic for you to call on your own to make an appointment as an alternative. Print Language: Sierra Leonean Coding Level of Care Code ED Tower Foreman for Chg Fwd Heart Score HEART Score Components History: Moderately Suspicious EKG: Normal Age: 45-64 yrs Risk Factors: 1 or 2 Risk Factors Troponin: Baseline Trop <16 ng/L HEART Score RESULT HEART Score: 3
[2025-03-16 22:14] LABS: Troponin(5th) Baseline < 6 ng/L (0-15)
[2025-03-16 22:24] VITALS: BP 120/67; PULSE 54; RESP 16; O2SAT 95
[2025-03-16 23:09] LABS: Troponin 5 2HR 6.68 ng/L (0-15); Troponin 5 2HR Delta 0.68001 ABS# (0-10)
[2025-03-16 23:25] VITALS: BP 130/71; PULSE 62; RESP 18; O2SAT 95
--- NOTE | 2025-03-17 10:30 | DCPLANNER ---
messaged heart care for er f/u
== END 2025-03-16 23:28 | disposition home or self-care (01) ==
PROVIDERS: Family Medicine; Emergency Provider Student in an Organized Health Care Education/Training Program; PCP Nurse Practitioner
DX: R07.9 Chest pain, unspecified (principal); Z72.0 Tobacco use
CPT/HCPCS: 36415; 71045; 80053; 84484; 85025; 93005; 99285

== ENCOUNTER 2025-04-09 23:42 | Emergency (ER) | payer SELFPAY ==
[2025-04-09 23:44] VITALS: BP 108/74; PULSE 77; RESP 16; TEMP 36.7; O2SAT 94; BMI 22.9
--- OUTSIDE RECORDS SUMMARY | 2025-04-09 23:48 | XMS_ITS | Clinical Summary ---
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 Gender Identity Not on file Sexual Orientation Not on file Last Filed Vital Signs Vital Sign Reading Time Taken Comments Blood Pressure 117/77 04/07/2023 8:25 AM TRAVEL AGENT Pulse 52 04/07/2023 8:25 AM TRAVEL AGENT Temperature 36.5 C (97.7 F) 04/07/2023 8:25 AM TRAVEL AGENT Respiratory Rate 18 04/07/2023 8:25 AM TRAVEL AGENT Oxygen Saturation 94% 04/07/2023 8:25 AM TRAVEL AGENT Inhaled Oxygen Concentration - - Weight 71.5 kg (157 lb 10.1 oz) 023 12:15 AM TRAVEL AGENT Height 182.9 cm (6') 04/06/2023 12:15 AM TRAVEL AGENT Body Mass Index 21.38 04/06/2023 12:15 AM TRAVEL AGENT Plan of Treatment Health Maintenance Due Date Last Done Comments DTAP/TDAP/TD VACCINES (1 - Tdap) 1988 HEPATITIS B VACCINES (1 of 3 - 19+ 3-dose series) 11/12 COLORECTAL SCREENING 2014 Colorectal Cancer Screening 2014 FIT-DNA Q 3 years 2014 FIT/FOBT Q 1 year 2014 Flex Sig/CT Colonography Q 5 years 2014 ZOSTER VACCINE (1 of 2) 11/30/2019 INFLUENZA VACCINE (#1) 2024 Insurance [facility] MEDICAID Advance Directives For more information, please contact: [phone] * Full Code (Latest Code Status on File) Date Activated Date Inactivated Comments 04/06/2023 1:19 AM 04/07/2023 1:17 PM
--- NOTE | 2025-04-10 00:35 | W.ED.GENADLT ---
HPI - General Adult General: Chief complaint: General Medical Stated complaint: Feels like all organs are swelling up, Foamy pee Time Seen by Provider: 04/09/25 23:58 History of Present Illness: 54-year-old male presents to the emergency room complaining of what he describes as all of my organs are shutting down. He states he has foamy urine when he urinates. He was seen for chest pain earlier this month workup was negative at that time he denies any recent fever sweats or chills has not had any further chest pain no abdominal pain. No medication nonheme tenderness or coffee-ground emesis he has no history of any renal or hepatic disease. Associated symptoms: Deny chest pain, dyspnea or rash Related Data Previous Rx's ?Medication ?Instructions ?Recorded azelastine 137 mcg (0.1 %) nasal 2 spray intranasal BID #30 mL 12/29/24 spray quetiapine 50 mg tablet,extended 50 - 150 mg (1 - 3 x 50 mg) PO 12/29/24 release 24 hr (Seroquel XR) .with eveing meal #90 tabs Allergies Allergy/AdvReac Type Severity Reaction Status Date / Time Alpha-Gal Allergy Unknown Verified 04/09/25 23:52 (Mrauemspc-Rdiou-2,3-Gala Penicillins Allergy ALGY-Swell Verified 04/09/25 23:52 Lip/Tongue/Throat prednisone Allergy ADR-Gastrointestinal Verified 04/09/25 23:52 Upset influenza virus vaccine ts AdvReac ADR/ALGY-Pa Verified 04/09/25 23:52 [id number] (36 mos,up) (From lpitations Fluarix) corn Allergy Severe ALGY-Hives Uncoded 03/16/25 18:35 Review of Systems Const: Denies: fever(s) or chills Card: Denies: chest pain Resp: Denies: dyspnea GI: Denies: abdominal pain : Denies: dysuria, urinary frequency or urinary urgency Musc: Denies: neck pain or back pain Skin/Breast: Denies: rash PFSH ED PFSH: Medical History Seasonal allergic rhinitis Insomnia History of Lyme disease Centrilobular emphysema Anxiety, generalized Cigarette smoker Surgical History Previous back surgery Lumbar spine with cage. Had secondary infection with bacterial spine infection. 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 Pets and animals: Yes Do you think of yourself as: Straight/Heterosexual Current gender identity: Male Physical Exam Const: COMMON NORMALS: no acute distress GENERAL APPEARANCE: cooperative and comfortable ORIENTATION/CONSCIOUSNESS: Yes awake, Yes oriented to person, Yes oriented to place and Yes oriented to time HENMT: COMMON NORMALS: normocephalic, atraumatic and hearing grossly normal bilaterally HEAD & SCALP: normocephalic and atraumatic Resp: COMMON NORMALS: normal respiratory effort, No retractions, No use of accessory muscles and clear to auscultation bilaterally AUSCULTATION: clear to auscultation bilaterally Cardio: COMMON NORMALS: regular rate, regular rhythm and No murmurs present (Cardio) RATE: regular rate RHYTHM: regular rhythm GI: COMMON NORMALS: Soft to palpation and No hepatosplenomegaly present AUSCULTATION: Yes normoactive bowel sounds PALPATION: Yes Soft to palpation, No Tenderness to palpation present (GI), No Guarding due to palpation present (GI) and Yes No hepatosplenomegaly present Extremity: COMMON NORMALS: normal to inspection, capillary refill normal, no clubbing, cyanosis or edema, no calf tenderness and no pedal edema Neuro: SENSORIUM/ORIENTATION: Yes oriented to person, Yes oriented to place and Yes oriented to time Skin: COMMON NORMALS: no rashes or lesions noted GENERAL SKIN EXAM: no rashes or lesions noted Course Vital Signs: Vital signs: Vital Signs Temperature 98.0 F 04/09/25 23:44 Pulse Rate 59 L 04/10/25 03:30 Respiratory Rate 16 04/09/25 23:44 Blood Pressure 130/78 04/10/25 03:30 Pulse Oximetry 96 04/10/25 03:30 Oxygen Delivery Me thod Room Air 04/10/25 03:30 MDM - General Adult Medical Decision Making Patient states he feels like he has a systemic inflammation and all of his organs are swelling up. His abdominal exam is benign there is no evidence of acute cholecystitis pancreatitis or appendicitis. No evidence of bowel obstruction cystitis pyelonephritis or nephrolithiasis. He is here with his son who endorses his symptoms over the last couple of days. He did state he has a what he describes as foamy urine however there is no signs of any renal failure or any proteinuria at this time. Repeat exam is unremarkable. At this point we can discharge patient home. If he has persistent symptoms follow-up with primary care. . He has had previous immunology workup which was reviewed on the chart this was done in 2022 and that was also negative if he has persistent symptoms he may wish to review this with his primary care doctor no emergent findings at this time. Reviewed chest x-ray from 03/16/2025 there were no acute findings masses at that time. His exam today on auscultation is normal imaging not repeated Medical Records I reviewed the patient's medical records. Lab Data I reviewed the patient's lab results. 04/10/25 00:43 04/10/25 00:43 Laboratory Results WBC 9.75 10^3/uL (3.29-11.43) 04/10/25 00:43 RBC 4.68 10^6/uL (3.85-5.65) 04/10/25 00:43 Hgb 14.90 g/dL (11.27-16.99) 04/10/25 00:43 Hct 43.3 % (37-53) 04/10/25 00:43 MCV 92.5 fl (82-101) 04/10/25 00:43 MCH 31.8 pg (27-33) 04/10/25 00:43 MCHC 34.4 g/dL (30-55) 04/10/25 00:43 RDW 12.2 % (12.1-15.1) 04/10/25 00:43 Plt Count 240 10^3/cmm (157-399) 04/10/25 00:43 MPV 9.4 fL (7.4-10.4) 04/10/25 00:43 Neut % (Auto) 63.2 % 04/10/25 00:43 Lymph % (Auto) 19.9 % 04/10/25 00:43 [place] % (Auto) 11.6 % 04/10/25 00:43 Eos % (Auto) 4.6 % 04/10/25 00:43 Baso % (Auto) 0.4 % 04/10/25 00:43 Neut # (Auto) 6.16 10^3/uL (1.8-7.7) 04/10/25 00:43 Lymph # (Auto) 1.9 10^3/uL (0.8-4.8) 04/10/25 00:43 [place] # (Auto) 1.1 10^3/uL (0.2-0.9) H 04/10/25 00:43 Eos # (Auto) 0.5 10^3/uL (0.0-0.8) 04/10/25 00:43 Baso # (Auto) 0.0 10^3/uL (0.0-0.1) 04/10/25 00:43 Nucleated RBC % (auto) 0 % 04/10/25 00:43 Nucleated RBCs # 0.0 /100WBC 04/10/25 00:43 PT 13.50 SECONDS (12.1-14.9) 04/10/25 00:43 INR 0.96 (0.8-1.2) 04/10/25 00:43 APTT 29.8 SECONDS (23.9-36.7) 04/10/25 00:43 Sodium 139 mmol/L (136-145) 04/10/25 00:43 Potassium 4.3 mmol/L (3.5-5.1) 04/10/25 00:43 Chloride 105 mmol/L (98-107) 04/10/25 00:43 Carbon Dioxide 24 mmol/L (22-29) 04/10/25 00:43 Anion Gap 14.3 (5-19) 04/10/25 00:43 BUN 14 mg/dL (6-20) 04/10/25 00:43 Creatinine 0.8 mg/dL (0.7-1.2) 04/10/25 00:43 GFR Calculation 100.4 mL/min (90-130) 04/10/25 00:43 Glucose 116 mg/dL (65-115) H 04/10/25 00:43 Calculated Osmolality 289 mOsm/kg (285-295) 04/10/25 00:43 Calcium 8.8 mg/dL (8.5-10.5) 04/10/25 00:43 Total Bilirubin 0.4 mg/dL (0.15-1.2) 04/10/25 00:43 AST 15 U/L (0-40) 04/10/25 00:43 ALT 13 U/L (0-41) 04/10/25 00:43 Alkaline Phosphatase 87 U/L (40-130) 04/10/25 00:43 Ammonia 29 umol/L (16-60) 04/10/25 00:43 Creatine Kinase 53 U/L (39-308) 04/10/25 00:43 Total Protein 6.7 g/dL (6.6-8.7) 04/10/25 00:43 Albumin 3.9 g/dL (3.5-5.2) 04/10/25 00:43 Globulin 2.8 g/dL (1.3-4.6) 04/10/25 00:43 Urine Color Yellow (Yellow) 04/10/25 00:04 Urine Appearance Clear (CLEAR) 04/10/25 00:04 Urine pH 6.5 (5-7) 04/10/25 00:04 Ur Specific [place] 1.008 (1.005-1.030) 04/10/25 00:04 Urine Protein Negative (Negative) 04/10/25 00:04 Urine Glucose (UA) Negative (Normal) 04/10/25 00:04 Urine Ketones Negative (Negative) 04/10/25 00:04 Urine Blood Negative (Negative) 04/10/25 00:04 Urine Nitrate Negative (Negative) 04/10/25 00:04 Urine Bilirubin Negative (Negative) 04/10/25 00:04 Urine Urobilinogen 0.2 mg/dL (Negative) 04/10/25 00:04 Ur Leukocyte Esterase Negative (Negative) 04/10/25 00:04 Urine RBC 0-2 /hpf (0-2) 04/10/25 00:04 Urine WBC 0-5 /hpf (0-5) 04/10/25 00:04 Ur Squamous Epith Cells 0-5 /hpf (0-5) 04/10/25 00:04 Amorphous Sediment Not Reportable 04/10/25 00:04 Urine Bacteria None seen /hpf (NONE) 04/10/25 00:04 Hyaline Casts 0-4 /lpf H 04/10/25 00:04 Urine Opiates Screen Negative ng/mL (Negative) 04/10/25 00:04 Ur Barbiturates Screen Negative ng/mL (Negative) 04/10/25 00:04 Ur Phencyclidine Scrn Negative ng/mL (Negative) 04/10/25 00:04 Ur Amphetamines Screen Negative ng/mL (Negative) 04/10/25 00:04 U Benzodiazepines Scrn Negative ng/mL (Negative) 04/10/25 00:04 Urine Cocaine Screen Negative ng/mL (Negative) 04/10/25 00:04 U Marijuana (THC) Screen Negative ng/mL (Negative) 04/10/25 00:04 Influenza A (PCR) Negative (Negative) 04/10/25 02:14 Influenza Type B (PCR) Negative (Negative) 04/10/25 02:14 RSV (PCR) Negative (Negative) 04/10/25 02:14 SARS-CoV-2 (PCR) Negative (Negative) 04/10/25 02:14 No radiology studies performed this visit EKG Data EKG 1: I personally reviewed and interpreted this EKG as follows: Interpretation: EKG 04/10/2025 0 3:37 AM sinus bradycardia rate of 56 ID interval 171 QTc [address] changes noted. Compared to previous EKG 03/16/2025. Previous was in sinus rhythm was at normal rate. Previous EKG also had incomplete bundle branch block otherwise no acute changes from previous EKG on that date. Discharge Plan Discharge Patient Disposition: Home Clinical Impression: Ill-defined condition, Cigarette smoker Condition: Stable Prescriptions: No Action quetiapine [Seroquel XR] 50 mg tablet extended release 24 hr 50 - 150 mg PO .with eveing meal Qty: 90 0RF azelastine 137 mcg (0.1 %) spray,non-aerosol 2 spray intranasal BID Qty: 30 5RF Rx Instructions: administer into each nostril Discharge Orders: Discharge ED (Routine); Ordered 04/10/25 Ordered By: Umair Liao Referrals: Mara Pierce, [facility] [Primary Care Provider, Family Practice] Discharge Diet: Usual diet Discharge Activity: Resume usual activity Patient Instructions: Opioid Safety, Pain Management, Patient Portal & [place] Instructions Activity Restrictions/Additional Instructions: Thank you for choosing [id number] for your healthcare needs today. It is very important that you follow up as instructed or that you return to the Emergency Department should you have concerns or if your condition changes or worsens in any way. Emergency department visits are focused on emergent conditions, in some cases you may require further evaluation on an outpatient basis. You are seen emergency room complaining of generally not feeling well. Laboratory test done in the emergency room did not show any significant abnormalities your liver functions kidney functions normal electrolytes blood counts were all also normal. Urine was unremarkable and swabs for flu COVID and RSV were negative. Vital signs have been stable at this time we will discharge home. Follow-up with your primary care doctor if you continue to feel unwell. (Please note that included in your discharge packet is information concerning opioid safety and pain management. This information is given to all patients were discharged from the ER regardless of their discharge diagnosis or the medicines they usually take or are prescribed.) Print Language: Romanian Coding Level of Care Code ED Shield Operator for Madison Aguayo
[2025-04-10 00:53] LABS: Hematocrit 43.3 % (37-53); Hemoglobin 14.90 g/dL (11.27-16.99); Mean Corpuscular HGB Conc 34.4 g/dL (30-55); Mean Corpuscular Hemoglobin 31.8 pg (27-33); Mean Corpuscular Volume 92.5 fl (82-101); Nucleated Red Blood Cells % 0 %; Platelet Count 240 10^3/cmm (157-399); Red Blood Count 4.68 10^6/uL (3.85-5.65); White Blood Count 9.75 10^3/uL (3.29-11.43)
[2025-04-10 01:08] LABS: INR 0.96 (0.8-1.2); Prothrombin Time 13.50 SECONDS (12.1-14.9)
[2025-04-10 01:09] LABS: Partial Thromboplastin Time 29.8 SECONDS (23.9-36.7)
[2025-04-10 01:17] LABS: Alanine Aminotransferase 13 U/L (0-41); Albumin Level 3.9 g/dL (3.5-5.2); Alkaline Phosphatase 87 U/L (40-130); Anion Gap 14.3 (5-19); Aspartate Amino Transferase 15 U/L (0-40); Blood Urea Nitrogen 14 mg/dL (6-20); Calcium 8.8 mg/dL (8.5-10.5); Carbon Dioxide 24 mmol/L (22-29); Chloride 105 mmol/L (98-107); Globulin 2.8 g/dL (1.3-4.6); Glucose 116 mg/dL (65-115); Osmolality Calculated 289 mOsm/kg (285-295); Potassium 4.3 mmol/L (3.5-5.1); Sodium 139 mmol/L (136-145); Total Protein 6.7 g/dL (6.6-8.7)
[2025-04-10 01:18] LABS: Glucose Urine UA Negative (Normal); Nitrate Urine Negative (Negative); Specific Gravity, Urine 1.008 (1.005-1.030)
[2025-04-10 01:18] LABS: Ammonia 29 umol/L (16-60)
[2025-04-10 01:23] LABS: Add Urine Microscopic? YES
[2025-04-10 01:29] LABS: PCP Screen Urine Negative (Negative)
[2025-04-10 02:11] VITALS: BP 122/82; PULSE 60
[2025-04-10 02:58] VITALS: BP 100/66; PULSE 56; O2SAT 92
[2025-04-10 03:00] VITALS: BP 108/66; PULSE 56; O2SAT 92
[2025-04-10 03:02] LABS: Respiratory Syncytial Virus Ce NEGATIVE (Negative); SARS-CoV-2 PCR NEGATIVE (Negative)
--- NOTE | 2025-04-10 03:20 | ECG_ITS ---
[facility] Test Date: 2025-04-10 Pat Name: Tyrell Paniagua Department: Room: Gender: Male Supervisor Mails: : 1970 Requested By: Umair Amin Order Number: [id number] Reading MD: REAL CHRISTIANSON Measurements Intervals [place] Rate: 56 P: 75 OK: 171 QRS: 38 QRSD: 96 T: 70 QT: 414 QTc: 400 Interpretive Statements SINUS BRADYCARDIA POSSIBLE RIGHT VENTRICULAR CONDUCTION DELAY [RSR (QR) IN V1/V2] Compared to ECG 03/16/2025 18:35:24 Sinus rhythm no longer present Indeterminate axis no longer present Incomplete right bundle-branch block no longer present Electronically Signed On 04-10-2025 22:54:44 LEATHER BELT SHAPER by REAL CHRISTIANSON [email or web address]
[2025-04-10 03:30] VITALS: BP 130/78; PULSE 59; O2SAT 96
== END 2025-04-10 03:48 | disposition home or self-care (01) ==
PROVIDERS: Emergency Provider Family Medicine; PCP Nurse Practitioner
DX: R82.998 Other abnormal findings in urine (principal); Z11.52 Encounter for screening for COVID-19; F17.210 Nicotine dependence, cigarettes, uncomplicated
CPT/HCPCS: 36415; 80053; 80306; 81001; 82140; 82550; 85025; 85610; 85730; 87637; 93005; 99284